=== PATIENT | female | born 1945 | race Caucasian/White ===

== ENCOUNTER 2018-01-06 12:59 | Emergency (ER) | payer MEDICARE ==
[2018-01-06] MEDS ORDERED: Aspirin 81 mg CHEW TAB* 81 MG TAB.CHEW PO ONE (13:20)
--- NOTE | 2018-01-06 13:23 | ED ---
Palpitations / Dysrhythmia - HPI Summary HPI Summary: This patient is a 72 year old F presenting to [facility] via EMS with a chief complaint of sudden rapid heart palpitations since 17:00 yesterday. Pt was driving in a car when her symptoms started, and the symptoms continued throughout the night. She could not sleep much. Patient reports lightheadedness , nausea, near-syncopal episode, and dehydration. Patient denies CP, jaw pain, chest tightness arm pain, MAK, abd pain, slurred speech, calf pain, or difficulty with memory. 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 Cates office. Pt reports that she has not felt like this before. Her normal heart rate is 120 or lower. Pt last took a stress test and an echo a long time ago with her teenage babysitter, the echo was negative. 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 Pt reports that she never gets a flu shot. Pt reports her nausea as 4/10. PMHX Insulinomas, pancreatic complications, neck tumor (removed) , Hepatitis (unspecified). No PMHx neuro problems, thyroid problems. 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 FHX [place], Afib, Cardiac arrest, colon cancer. Vital signs while in room: HR 110 bpm, BP 200/105. O2 98% Allergies to Mela Oil and Doxycycline. Time of evaluation: 14:15. Home Medications Medication Instructions Recorded Confirmed Type Diltiazem HCl Coated Beads 120 mg PO DAILY 01/06/14 04/21/14 History [Diltiazem Cd] EPINEPHrine [Epipen 2-Shon] 0.3 mg IJ ONCE PRN 01/06/14 04/21/14 History [place]-3 Fatty Acids/Fish Oil 1 cap PO DAILY 01/06/14 04/21/14 History [[place] 3] Oxybutynin Chloride [Oxybutynin 10 mg PO DAILY 01/06/14 04/21/14 History Chloride ER] Pantoprazole Sodium 20 mg PO BID 01/06/14 04/21/14 History - History of Current Complaint Chief Complaint: EDDizziness Time Seen by Provider: 01/06/18 13:15 Hx Obtained From: Patient, EMS, Other: - Dr. Rome [place], who called ahead Onset/Duration: Sudden Onset, Lasting Hours - since last pm Timing: Constant Severity Initially: Severe Severity Currently: Severe Character: Fast Aggravating: Nothing Alleviating: Nothing Associated Signs & Symptoms: Lightheadedness, Nausea - Allergy/Home Medications Allergies/Adverse Reactions: Allergies Allergy/AdvReac Type Severity Reaction Status Date / Time doxycycline Allergy Hives Verified 01/07/18 14:30 mela Allergy Hives Verified 01/07/18 14:30 PMH/Surg Hx/FS Hx/Imm Hx Previously Healthy: No Endocrine/Hematology History: Reports: Other Endocrine/Hematological Disorders - insulinomas Denies: Hx Diabetes, Hx Systemic Lupus Erythematosus Cardiovascular History: Reports: Hx Hypertension, Other Cardiovascular Problems/ Disorders - mitral valve problem Denies: Hx Congestive Heart Failure, Hx Pacemaker/ICD Respiratory History: Reports: Hx Pneumonia GI History: Reports: Hx Gastroesophageal Reflux Disease, Other GI Disorders - biliary sphincter issue, pancreatic sphincter issue History: Denies: Hx Dialysis, Hx Renal Disease Musculoskeletal History: Denies: Hx Rheumatoid Arthritis Sensory History: Reports: Hx Contacts or Glasses Denies: Hx Hearing Aid Opthamlomology History: Reports: Hx Contacts or Glasses Psychiatric History: Denies: Hx Panic Disorder - Cancer History Cancer Type, Location and Year: no Hx Chemotherapy: No Hx Radiation Therapy: No - Surgical History Surgery Procedure, Year, and Place: hysterectomy 2009; billiary and pancreatic sphycterotomy; benign tumor removed from neck Hx Anesthesia Reactions: No - Immunization History Date of Tetanus Vaccine: PT STATES UNSURE Date of Influenza Vaccine: doesn't get them Infectious Disease History: Yes Infectious Disease History: Reports: Hx Hepatitis - since resolved, needed ERCP Denies: Traveled Outside the in Last 30 Days - Family History Known Family History: Positive: Cardiac Disease, Other - afib, [place], colon [place] - Social History Occupation: Retired Lives: With Family Alcohol Use: Weekly Substance Use Type: Reports: None Smoking Status (MU): Former Smoker Type: Cigarettes Amount Used/How Often: quit 20 yrs ago Review of Systems Constitutional: Negative Positive: Other - dehydration Positive: Palpitations. Negative: Chest Pain Respiratory: Negative Positive: Nausea. Negative: Abdominal Pain Positive: no symptoms reported Negative: Other - calf pain, jaw pain, Skin: Negative Neurological: Other - near-syncope Negative: Headache, Slurred Speech Psychological: Normal All Other Systems Reviewed And Are Negative: Yes Physical Exam - Summary Physical Exam Summary: Appearance: Ill-appearing, severe pain distress, nauseous, hypertensive, tachycardic, appears younger than stated age Skin: Warm, color reflects adequate perfusion, dry Head: Normal Head/Face inspection, atraumatic Eyes: Conjunctiva clear, PERRL, EOMI, no nystagmus ENT: Normal inspection Neck: Supple, no nodes, no JVD, scar posterior neck, nontender spines Respiratory: Lungs clear, normal breath sounds, no respiratory distress Cardio: RRR, No murmur, pulses normal, brisk capillary refill Abdomen: Soft, nontender, no bruits, no masses, no guarding/rebound, no CVAT Bowel sounds: Present Musculoskeletal: Strength Intact/ROM intact, no calf tenderness, no edema. Psychological: Normal Neuro: A&O x3, CN II-XII intact, motor function 5/5, sensation intact, cerebellar normal GCS: 15 Triage Information Reviewed: Yes Vital Signs On Initial Exam: Initial Vitals Temp Pulse Resp BP Pulse Ox 98.3 F 95 16 165/95 99 01/06/18 13:03 01/06/18 13:03 01/06/18 13:03 01/06/18 13:03 01/06/18 13:03 Vital Signs Reviewed: Yes Diagnostics - Vital Signs Vital Signs Temp Pulse Resp BP Pulse Ox 01/06/18 13:03 98.3 F 95 16 165/95 99 - Laboratory Result Diagrams: 01/06/18 14:05 01/06/18 14:16 Lab Statement: Any lab studies that have been ordered have been reviewed, and results considered in the medical decision making process. - Radiology CXR Radiology Interpretation Completed By: Radiologist - NO ACTIVE CARDIOPULMONARY DISEASE. ED physician has reviewed this report - CT Brain CT Interpretation Completed By: Radiologist - NO ACUTE INTRACRANIAL PATHOLOGY. ED physician has reviewed this report - EKG 13:23 Cardiac Rate: Tachycardia - 104 bpm EKG Rhythm: Sinus Tachycardia ST Segment: Non-Specific Ectopy: None EKG Interpretation: nml AV/IV CT, nml QTc, and nml axis. EKG Comparison: No Significant Change - c/w 04/23/14 Re-Evaluation - Re-Evaluation First Eval Re-Evaluation Time: 15:34 Change: Unchanged Comment: Patient has a right frontal MAK. BP is 169/90. Labs reviewed, all are nml except lactic acid 2.1 and alkaline phosphatase 116. Pt says she has had hepatic cysts and she gets yearly ultrasounds, and they have been unchanged. Patient is still nauseous. Second Eval Re-Evaluation Time: 17:26 Change: Improved Comment: BP 135/85. Nausea is better. We discussed discharge. Course/Dx - Course Course Of Treatment: This patient is a 72 year old F presenting to [facility] with a chief complaint of sudden rapid heart palpitations since 17:00 yesterday. Pt was driving in a car when her symptoms started, and the symptoms continued throughout the night. She could not sleep much. Patient reports lightheadedness , nausea, near-syncopal episode, and dehydration. Patient denies CP, jaw pain, chest tightness arm pain, MAK, abd pain, slurred speech, calf pain, or difficulty with memory. An EKG at 13:23 shows HR 104 bpm and reveals nml AV/IV CT, nml QTc, and nml axis. CXR reveals, per radiologist, NO ACTIVE CARDIOPULMONARY DISEASE. CT brain reveals, per radiologist, NO ACUTE INTRACRANIAL PATHOLOGY. ED physician has reviewed this radiology report. Test results with no significant abnormalities except for elevated lactic acid 2.1 H and minimally elevated alkaline phosphatase. In the ED course the patient was given Aspirin 324mg po, IV fluids, and ODT and IV zofran. Patient will be discharged with increased RX for Diltiazem and Ondansetron and defnite follow up with Dr. Cote. The patient is agreeable with this plan. - Diagnoses Differential Diagnosis/HQI/PQRI: Positive: Coronary Artery Disease, Other - insulinoma, CVA, arrythmia Provider Diagnoses: Hypertensive crisis, Vomiting, Palpitations, Near syncope Discharge - Sign-Out/Discharge Documenting (check all that apply): Patient Departure - discharge - Discharge Plan Condition: Stable Disposition: HOME Prescriptions: dilTIAZem HCl [Cartia Xt] 180 mg PO BEDTIME #30 cap.er.24h Ondansetron ODT TAB* [Zofran 4 MG Odt TAB*] 4 mg PO Q6H PRN #20 tab.odt PRN Reason: Nausea Patient Education Materials: Heart Palpitations (ED), Hypertensive Crisis (ED) Referrals: Karsten Cote MD [Primary Care Provider] - 2 Days Additional Instructions: We noted blood pressures of 190/109 P 108, and 189/104 P103 while you were in the ER. Your BP came down without treatment. We did not see any arrythmias. We have decided that you will increase your Cartia XT to 180mg daily at bedtime. We have sent a prescription for this to [facility] in [place]. We have also sent an RX for zofran for nausea and vomiting. You will want to have definite follow up for your hx of insulinomas. See Dr. Cote for a BP check within the next week. We have given you copies of your labs and CT brain that were done in the ED. Dr. Pearson recommends that you get your own blood pressure cuff. Look at an Omron brand name or the Judd Rama brand name. Return to the ER if you have any new or worsening symptoms. - Billing Disposition and Condition Condition: STABLE Disposition: Home - Attestation Statements Document Initiated by Scrdele: Yes Documenting Scribe: Xavi Paris Provider For Whom Rossy is Documenting (Include Credential): Natasha Pearson MD Scribe Attestation: IXavi, scribed for Natasha Pearson MD on 01/09/18 at 1838. Scribe Documentation Reviewed: Yes Provider Attestation: The documentation as recorded by the Xavi pickens accurately reflects the service I personally performed and the decisions made by me, Natasha Pearson MD
[2018-01-06] MEDS ORDERED: Ondansetron INJ* 2 MG/ML VIAL ONE (13:38)
[2018-01-06] MEDS ORDERED: Ondansetron ODT TAB* 4 MG PO ONE (13:43)
[2018-01-06] MEDS ORDERED: Ondansetron INJ* 2 MG/ML VIAL IV ONE (13:45)
[2018-01-06] MEDS ORDERED: Ondansetron ODT TAB* 4 MG ONE (13:45)
[2018-01-06] MEDS: NS 0.9% 1000 ML* 2,000 ML IV ONE ×2 (14:24→15:33)
[2018-01-06 14:27] LABS: Urine Appearance Cloudy; Urine Blood Negative (Negative); Urine Color Yellow; Urine Ketones 1+ (Negative); Urine Protein Negative (Negative); Urine Specific Gravity 1.008 (1.010-1.030); Urine Urobilinogen Negative (Negative)
[2018-01-06 14:33] LABS: INR 0.95 (0.77-1.02)
[2018-01-06 14:34] LABS: ABS Basophils 0 10^3/ul (0-0.2); ABS Eosinophils 0.1 10^3/ul (0-0.6); ABS Lymphocytes 0.7 10^3/ul (1.0-4.8); ABS Monocytes 0.4 10^3/ul (0-0.8); ABS Nucleated RBC 0 10^3/ul; Eosinophil % 0.6 % (0-6); Hematocrit 45 % (35-47); Hemoglobin 15.9 g/dl (12.0-16.0); Lymphocyte % 7.7 % (25-47); Mean Corpuscular HGB Conc 35 g/dl (31-36); Mean Corpuscular Hemoglobin 34 pg (27-31); Mean Corpuscular Volume 96 fL (80-97); Mean Platelet Volume 7.5 um3 (7.4-10.4); Nucleated Red Blood Cells % 0; Platelet Count 236 10^3/ul (150-450); Red Blood Count 4.71 10^6/ul (4.00-5.40); Red Cell Distribution Width 13 % (10.5-15); White Blood Count 9.1 10^3/ul (3.5-10.8)
[2018-01-06 14:47] LABS: EGFR Non-African American 88.5 (>60)
--- NOTE | 2018-01-06 16:06 | RAD ---
HISTORY: right frontal MAK, HTN COMPARISONS: None TECHNIQUE: Multiple contiguous axial CT scans were obtained of the head without intravenous contrast. FINDINGS: HEMORRHAGE/INFARCT: There is no hemorrhage or acute infarct. MASSES/SHIFT: There is no mass or shift. EXTRA-AXIAL SPACES: There are no extra-axial fluid collections. SULCI AND VENTRICLES: The sulci and ventricles are normal in size and position for the patient's stated age. CEREBRUM: There are no focal parenchymal abnormalities. BRAINSTEM: There are no focal parenchymal abnormalities. CEREBELLUM: There are no focal parenchymal abnormalities. VESSELS: The vessels are grossly normal. PARANASAL SINUSES: The paranasal sinuses are clear. ORBITS: The orbits are unremarkable. BONES AND SOFT TISSUE: No bone or soft tissue abnormalities are noted. OTHER: None IMPRESSION: NO ACUTE INTRACRANIAL PATHOLOGY.
--- NOTE | 2018-01-06 16:10 | RAD ---
HISTORY: palpitations COMPARISONS: April 21, 2014 VIEWS: 1: frontal AP view of the chest at 2:30 PM FINDINGS: LINES AND TUBES: None. CARDIOMEDIASTINAL SILHOUETTE: The cardiomediastinal silhouette is normal for portable technique. PLEURA: The costophrenic angles are sharp. No pleural abnormalities are noted. LUNG PARENCHYMA: The lungs are clear. ABDOMEN: The upper abdomen is clear. There is no subphrenic gas. BONES AND SOFT TISSUES: No bone or soft tissue abnormalities are noted. IMPRESSION: NO ACTIVE CARDIOPULMONARY DISEASE.
[2018-01-06] MEDS ORDERED: Ibuprofen TAB* 600 MG PO ONE (17:29)
[2018-01-06 17:59] VITALS: BP 140/86
== END 2018-01-06 17:58 | disposition home or self-care (01) ==
LOC: ED 12:59
DX: I16.9 Hypertensive crisis, unspecified (principal); R11.10 Vomiting, unspecified; R00.2 Palpitations; R55 Syncope and collapse; Z87.891 Personal history of nicotine dependence
CPT/HCPCS: 36415; 70450; 71045; 80053; 81003; 82150; 82550; 82553; 83605; 83690; 83735; 83880; 84436; 84443; 84484; 85025; 85379; 85610; 85730; 93005; 96361; 96374; 99282; A9270-GY; J2405

== ENCOUNTER 2018-01-07 14:14 | Inpatient (IN) | payer MEDICARE ==
[2018-01-07] MEDS ORDERED: diPHENhydraMINE IV* 50 MG/ML 1 ml VIAL (BENADRYL) IV ONE (14:29)
[2018-01-07] MEDS ORDERED: Metoclopramide IV* 5 MG/ML 2 ML VIAL IV ONE (14:29)
--- NOTE | 2018-01-07 14:39 | ED ---
HPI Cardiac - HPI Summary HPI Summary: Pt is a 72 year old F presenting to the ED BIBA with extreme nausea, heart palpitations, lightheadedness, and the episode started around noon. She was here yesterday for the same thing. Her heart was beating hard and fast but was regular. The pt denies sob, leg edema, smoking, anxiety, wheezing, or coughing. The pt reports being given Zofran in the ambulance as well as aspirin, RUQ pain , two sphincterotomies, 4.8cm cysts on liver, drinking wine, changes in blood pressure, and tightness in throat. Pre-hospital EKG showed sinus tachycardia with some inferior and lateral ST oppression, which pt states is not new. - History of Current Complaint Chief Complaint: EDDysrhythmPalp Stated Complaint: CHEST PAIN Time Seen by Provider: 01/07/18 14:17 Hx Obtained From: Patient Onset/Duration: Started Days Ago, Still Present Timing: Lasting Days Initial Severity: Mild Current Severity: Mild Pain Intensity: 0 Pain Scale Used: 0-10 Numeric Character: Fast, Pounding Aggravating Factor(s): Position, Movement Alleviating Factor(s): Nothing Associated Signs and Symptoms: Positive: Lightheadedness, Nausea, Palpitations, Abdominal Pain - RUQ, Other: - throat tightness. Negative: Shortness of Breath , Cough, Wheezing - Allergy/Home Medications Allergies/Adverse Reactions: Allergies Allergy/AdvReac Type Severity Reaction Status Date / Time doxycycline Allergy Hives Verified 01/07/18 14:30 roque Allergy Hives Verified 01/07/18 14:30 PMH/Surg Hx/FS Hx/Imm Hx Previously Healthy: No Endocrine/Hematology History: Reports: Other Endocrine/Hematological Disorders - insulinomas Denies: Hx Diabetes, Hx Systemic Lupus Erythematosus Cardiovascular History: Reports: Hx Hypertension, Other Cardiovascular Problems/ Disorders - mitral valve problem Denies: Hx Congestive Heart Failure, Hx Pacemaker/ICD Respiratory History: Reports: Hx Pneumonia Denies: Other Respiratory Problems/Disorders GI History: Reports: Other GI Disorders - biliary sphincter issue, pancreatic sphincter issue History: Denies: Hx Dialysis, Hx Renal Disease Musculoskeletal History: Denies: Hx Rheumatoid Arthritis Sensory History: Reports: Hx Contacts or Glasses Denies: Hx Hearing Aid Opthamlomology History: Reports: Hx Contacts or Glasses Psychiatric History: Denies: Hx Panic Disorder - Cancer History Cancer Type, Location and Year: no Hx Chemotherapy: No Hx Radiation Therapy: No - Surgical History Surgery Procedure, Year, and Place: hysterectomy 2009; billiary and pancreatic sphycterotomy; benign tumor removed from neck Hx Anesthesia Reactions: No - Immunization History Date of Tetanus Vaccine: PT STATES UNSURE Date of Influenza Vaccine: doesn't get them Immunizations Up to Date: Yes Infectious Disease History: No Infectious Disease History: Reports: Hx Hepatitis - since resolved, needed ERCP Denies: Traveled Outside the [place] in Last 30 Days - Family History Known Family History: Positive: Cardiac Disease, Other - afib, [place], colon [place] - Social History Occupation: Retired Alcohol Use: Weekly Substance Use Type: Reports: None Hx Tobacco Use: No Smoking Status (MU): Former Smoker Type: Cigarettes Amount Used/How Often: quit 20 yrs ago Review of Systems Positive: Other - tightness in throat Positive: Palpitations Negative: Shortness Of Breath, Cough Positive: Nausea Negative: Edema Neurological: Other - lightheaded Negative: Anxious All Other Systems Reviewed And Are Negative: Yes Physical Exam - Summary Physical Exam Summary: Appearance: Well appearing, no pain distress Skin: warm, dry, reflects adequate perfusion Head/face: normal Eyes: EOMI, IGNACIO ENT: mucous membranes moist Neck: supple, non-tender Respiratory: CTA, breath sounds present Cardiovascular: RRR, pulses symmetrical Abdomen: RUQ tenderness, soft Bowel Sounds: present Musculoskeletal: normal, strength/ROM intact Neuro: normal, sensory motor intact, A&Ox3 Triage Information Reviewed: Yes Vital Signs On Initial Exam: Initial Vitals Temp Pulse Resp BP Pulse Ox 98.5 F 90 20 169/110 98 01/07/18 14:19 01/07/18 14:19 01/07/18 14:19 01/07/18 14:19 01/07/18 14:19 Vital Signs Reviewed: Yes Diagnostics - Vital Signs Vital Signs Temp Pulse Resp BP Pulse Ox 01/07/18 14:19 98.5 F 90 20 169/110 98 - Laboratory Result Diagrams: 01/07/18 14:37 01/07/18 14:37 Lab Statement: Any lab studies that have been ordered have been reviewed, and results considered in the medical decision making process. - Radiology Chest XRay Xray Interpretation: No Acute Changes - No active cardiopulmonary disease. Radiology Interpretation Completed By: Radiologist - ED physician has reviewed this report. - Ultrasound No standard instances Ultrasound Interpretation: Positive (See Comments) - THE COMMON DUCT IS MILDLY DILATED WITHOUT INTRAHEPATIC BILIARY DILATATION. THERE IS AN ECHOGENIC FILLING DEFECT OF THE DISTAL COMMON DUCT WHICH MAY REFLECT A COMMON DUCT STONE. Ultrasound Interpretation Completed By: Radiologist - ED physician has reviewed this report. - EKG 1418 Cardiac Rate: NL - 88bpm EKG Rhythm: Sinus Rhythm ST Segment: Normal Ectopy: None Disposition - Course Course Of Treatment: Pt with abrupt onset episodically of nausea and some RUQ pain associated with palpitations. GB US shows possible stone in CBD -- but pt has a hx of biliary and pancreatic duct sphincterotomies. No fever. Improved here. D/W GI who discussed with their colleague about doing ERCP here. Plan to admit and ERCP in 24-48hrs. - Differential Dx - Cardiopulmonary Differential Diagnoses - Cardiopulmonary: Acute Coronary, CAD, CHF, Chest Wall Pain, GI Disease, Lower Resp Infection - Diagnoses Provider Diagnoses: Choledocholithiasis, Nausea, Palpitations Discharge - Sign-Out/Discharge Documenting (check all that apply): Patient Departure - admit - Discharge Plan Condition: Fair Disposition: ADMITTED TO [facility] - Billing Disposition and Condition Condition: FAIR Disposition: Admitted to [facility] - Attestation Statements Document Initiated by Scribe: Yes Documenting Scribe: Chrissy Styles Provider For Whom Rossy is Documenting (Include Credential): Jasbir Molina MD. Scribe Attestation: Chrissy Chris, scribed for Jasbir Molina MD. on 01/07/18 at 2110. Scribe Documentation Reviewed: Yes Provider Attestation: The documentation as recorded by the scribeChrissy accurately reflects the service I personally performed and the decisions made by me, Jasbir Molina MD. Consult Consult: 1556 - Spoke with Chelle Arzate MD., about the pt's condition, who wants Dr. Calhoun to call. 1620 - Pt will be admitted to the hospital. 1630 - GI asked for a MCRP.
[2018-01-07 14:51] LABS: ABS Basophils 0 10^3/ul (0-0.2); ABS Eosinophils 0.1 10^3/ul (0-0.6); ABS Lymphocytes 1.1 10^3/ul (1.0-4.8); ABS Monocytes 0.4 10^3/ul (0-0.8); ABS Neutrophils 6.6 10^3/ul (1.5-7.7); ABS Nucleated RBC 0 10^3/ul; Eosinophil % 1.5 % (0-6); Hematocrit 44 % (35-47); Hemoglobin 15.2 g/dl (12.0-16.0); Lymphocyte % 13.5 % (25-47); Mean Corpuscular HGB Conc 34 g/dl (31-36); Mean Corpuscular Hemoglobin 33 pg (27-31); Mean Corpuscular Volume 96 fL (80-97); Mean Platelet Volume 7.3 um3 (7.4-10.4); Nucleated Red Blood Cells % 0; Platelet Count 227 10^3/ul (150-450); Red Blood Count 4.59 10^6/ul (4.00-5.40); Red Cell Distribution Width 13 % (10.5-15); White Blood Count 8.3 10^3/ul (3.5-10.8)
[2018-01-07 14:55] LABS: INR 1.02 (0.77-1.02)
--- NOTE | 2018-01-07 15:02 | RAD ---
HISTORY: CP COMPARISONS: January 06, 2018 VIEWS: 1: frontal AP view of the chest at 2:50 PM FINDINGS: LINES AND TUBES: None. CARDIOMEDIASTINAL SILHOUETTE: The cardiomediastinal silhouette is normal for portable technique. PLEURA: The costophrenic angles are sharp. No pleural abnormalities are noted. LUNG PARENCHYMA: The lungs are clear. ABDOMEN: The upper abdomen is clear. There is no subphrenic gas. BONES AND SOFT TISSUES: No bone or soft tissue abnormalities are noted. IMPRESSION: NO ACTIVE CARDIOPULMONARY DISEASE.
[2018-01-07 15:08] LABS: EGFR Non-African American 76.4 (>60)
--- NOTE | 2018-01-07 15:19 | RAD ---
HISTORY: RUQ pain COMPARISONS: April 15, 2016 TECHNIQUE: Multiple transverse and longitudinal ultrasound images were obtained of the right upper quadrant of the abdomen using grayscale and color Doppler imaging. FINDINGS: LIVER: There are multiple hepatic cysts, the largest measures approximately 6.6 cm in size. These are similar to the previous examination accounting for differences in technique. There is normal hepatopedal flow of the portal vein on Doppler imaging. BILIARY TREE: The common duct is mildly dilated The common duct measures 0.9 cm. There is an echogenic focus within the distal common duct. GALLBLADDER: The gallbladder is well-visualized. There is no cholelithiasis, gallbladder wall thickening, pericholecystic fluid, or sonographic Tavares sign. PANCREAS: The head of the pancreas is unremarkable. The tail of the pancreas is not well visualized secondary to overlying bowel gas. RIGHT KIDNEY: The right kidney is normal in shape, size, contour, and echogenicity. There is no hydronephrosis or nephrolithiasis. The right kidney measures 11.2 x 5.9 x 5 cm. AORTA AND IVC: The aorta and IVC are unremarkable. FLUID: There are no pleural effusions. There is no free fluid within the hepatorenal recess. OTHER FINDINGS: None. IMPRESSION: THE COMMON DUCT IS MILDLY DILATED WITHOUT INTRAHEPATIC BILIARY DILATATION. THERE IS AN ECHOGENIC FILLING DEFECT OF THE DISTAL COMMON DUCT WHICH MAY REFLECT A COMMON DUCT STONE.
[2018-01-07] MEDS ORDERED: Acetaminophen TAB* 325 MG PO PRN (17:43)
[2018-01-07] MEDS: Ondansetron INJ* 2 MG/ML VIAL IV PRN (19:33)
[2018-01-07] MEDS: Enoxaparin(*) 40 MG/0.4 ML SYR SUBCUT SCH (19:38)
[2018-01-07] MEDS: Diltiazem CD CAP* 180 MG PO SCH (21:04)
--- NOTE | 2018-01-07 22:22 | HP ---
AMENDED REPORT NOW INCLUDES DESIGNATED COSIGNER CC: Dr. Karsten Cote * [facility] MEDICINE HISTORY AND PHYSICAL: DATE OF ADMISSION: 01/07/18 PRIMARY CARE PHYSICIAN: Dr. Karsten Cote. ATTENDING PHYSICIAN: Dr. Bruce Paz * (dictation provided by Karina Almazan NP). CHIEF COMPLAINT: Episodes of near-syncope with nausea and lightheadedness and palpitations. HISTORY OF PRESENT ILLNESS: Ms. Marino is a 72-year-old female with a past medical history of insulinoma discovered in 1998, which was treated at that time in a pancreatic sphincterotomy and then a biliary sphincterotomy. The patient states that her symptoms at the time of her diagnosis of insulinoma were very severe. She reports episodes with severe diaphoresis, vomiting, incontinence of stool. These episodes would come and go sporadically and lasted for over a year before she was diagnosed with an insulinoma. She then saw Dr. Cardoza in [facility], who confirmed the diagnosis, and Dr. Girard performed a pancreatic sphincterotomy. She did well for several years after that, but again developed symptoms and needed a biliary sphincterotomy with Dr. Girard. The patient states that since 2004, she has only very rarely ever had episodes with the last one being a year ago. Recently, as of this past Monday, the patient was sitting in a car when she suddenly felt that she was going to pass out. She felt very lightheaded and nauseous. This only lasted a moment or two, but thereafter she did feel quite weak. She went to bed and the following morning when she woke up, she again had another episode where she almost blacked out and again had severe nausea. She went to see her primary care physician, Dr. Karsten Cote, who performed an EKG and sent her to the emergency room for evaluation. Here, her workup was negative except for an elevated blood pressure, for which she had increase of her home diltiazem from 120 mg to 180 mg daily. Her BP improved in the ED and she felt somewhat better and therefore returned home. Again, this morning, she had episode of nausea, lightheadedness, and feeling like she was going to blackout, so she called the EMS to be brought back to the hospital. She states that these symptoms bear some semblance to her previous symptoms that were ascribed to her insulinoma, but they are less severe. She also describes having some palpitations that have lasted about the past week or so. She notices them more at night when she is still and quiet. The patient denies any other complaints. She has had no chest pain, no shortness of breath. She has had no abdominal pain, although she did report a little bit of abdominal fullness in the right upper quadrant, but states this has been going on for about a year. She denies fever or chills. In the emergency room, Ms. Marino had labs that were unremarkable and almost essentially normal. Her vital signs showed her blood pressure was initially elevated at 169/110, but while being in the emergency room without any medication, had fallen to 122/72. She had a chest x-ray, which showed no acute process and EKG, which showed no evidence of ischemia, but a gallbladder ultrasound showed concern for possible common bile duct stone. PAST MEDICAL HISTORY: 1. Hypertension. 2. Insulinoma, status post biliary sphincterotomy and pancreatic sphincterotomy. 3. Hysterectomy with bilateral salpingo-oophorectomy. MEDICATIONS: Outpatient are: 1. Diltiazem CD 180 mg p.o. daily. 2. Zofran p.r.n. ALLERGIES: DOXYCYCLINE and MICHAEL. FAMILY HISTORY: Her mother had colon cancer at age 72 and at age 82. Her half-brother on the maternal side had colon cancer at age 61. SOCIAL HISTORY: No report of current alcohol, tobacco, or drug use. The patient states that her daughter, Jailyn, would be the healthcare proxy. REVIEW OF SYSTEMS: A 14-point review of systems was completed with Ms. Marino and all those not mentioned above were negative. PHYSICAL EXAMINATION GENERAL: Ms. Marino is lying in the bed. She is in no acute distress. VITAL SIGNS: Temperature 98.5; pulse rate 90; respiratory rate 20; O2 saturation 98% on room air; blood pressure 169/110; at the time of my examination, it was 122/72. LUNGS: Clear to auscultation bilaterally with no accessory muscle use and good aeration. HEART: S1, S2. No murmur, rub, or gallop, and regular. ABDOMEN: Has very mild tenderness to palpation in the left lower quadrant, it was otherwise completely benign with bowel sounds positive x4. EXTREMITIES: No cyanosis or edema. NEUROLOGIC: She is alert. She is oriented x3. She moves all extremities equally. There is no facial asymmetry or focal weakness. Extraocular movements are intact. SKIN: Intact. DIAGNOSTIC STUDIES/LAB DATA: WBC 8.3, hemoglobin 15.2, hematocrit 44, platelet count 227. INR 1.02. Sodium 140, potassium 3.8, chloride 108, bicarb 22, BUN 11, creatinine 0.75, glucose 90, lactic acid 1.7. Lipase 35, AST 20, ALT 17, total bilirubin 0.50, and alk phos 94. The gallbladder ultrasound is read as follows: "The common duct is mildly dilated without intrahepatic biliary dilatation. There is an echogenic filling defect at the distal common duct, which may reflect a common duct stone." Chest x-ray shows no acute process. EKG shows sinus rhythm with a heart rate in the 80 and no evidence of ischemia. ASSESSMENT AND PLAN: Ms. Marino is a 72-year-old female with a past medical history of insulinoma, which was treated in 2000 with biliary sphincterotomy and 2004 with pancreatic sphincterotomy, who presents today to the hospital with concern for palpitations, presyncope, nausea, lightheadedness. In the ED, she has been found to have an abnormal gallbladder ultrasound and possible common bile duct stone. Our plans are for observation in the hospital for the followin. Presyncopal episodes associated with nausea. The patient's symptoms of feeling like she is going to pass out certainly sound vasovagal in nature. She does describe some palpitations and will be monitored on telemetry. Though she has this abnormality noted on the gallbladder ultrasound, I am suspicious that this might be just an artifact related to her history of sphincterotomy. The case has been discussed with Dr. Arzate from Gastroenterology and she and the gastroenterology team have recommended an MRCP. Dr. Arzate states that Dr. Calhoun will see the patient tomorrow. It is also possible that her symptoms are related to her reported insulinoma as she did not have resection of that at the time of her prior treatment, as according to her this was not the standard care at that time. I note a previous MRI abdomen from 2017 that did not show a pancreatic mass. Plan for MRI abdomen to evaluate for pancreatic mass. She would likely benefit greatly from an endocrine consult, perhaps with Dr. Gerardo Childs tomorrow when he is available. We will also request records from her treating physicians in [facility] to better understand her previous diagnostic workup and treatment. 2. Hypertension. The patient's blood pressure is appropriate at this time. She has recently had an increase in her diltiazem. We will be monitoring her blood pressure closely and adjusting her medications as needed. 3. DVT prophylaxis with Lovenox. 4. Code status is full code. TIME SPENT: Approximately 60 minutes were spent on the admission of this patient, more than half the time spent with the patient at the bedside reviewing the events leading up to this hospitalization, performing the physical examination, and reviewing the plan of care. KARINA ALMAZAN NP [id number]/[facility] #: [id number] SHANTELLE
[2018-01-08] MEDS ORDERED: Gadoteridol* (CONTRAST) 279.3 MG/ML 10 ML IV ONE (11:42)
[2018-01-08] MEDS: Ondansetron INJ* 2 MG/ML VIAL IV PRN (12:18)
--- NOTE | 2018-01-08 13:06 | PN ---
Subjective Date of Service: 01/08/18 Interval History: patient reports she feels a little better today but continues to have nausea and "mild" RUQ pain. She reports the nausea started 3 days with dizziness and lightheadedness reporting a presyncopal feeling. No vomiting. No fevers or chills. No body aches. Recently got over a "flu like virus" a few weeks ago. Reports current MAK and thinks its secondary to not having caffeine this am. Reports that the RUQ pain was worse last night after ultrasound but does not report any pain with palpation on practitioner exam. Reports RUQ pain for 1 year on and off reporting "no one was concerned about this pain". She reports it to feel more like a "feeling of fullness and discomfort". Denies abdominal bloating belching or increased flatulence. She reports normal BMs. Reports she is healthy at her baseline. She reports she saw her GI doctor Dr. Moura & [facility] two years ago who reported that she was doing well (she has followed with this office since 2000 for her insulinoma). As well she followed with Dr. Jack MCKINNON MD in [place]. Objective Active Medications: Acetaminophen (Tylenol Tab*) 650 mg PO Q6H PRN PRN Reason: PAIN Diltiazem HCl (Cardizem Cd Cap*) 180 mg PO BEDTIME ADRIANA Last Admin: 01/07/18 21:04 Dose: 180 mg Enoxaparin Sodium (Lovenox(*)) 40 mg SUBCUT Q24H ADRIANA Last Admin: 01/07/18 19:38 Dose: Not Given Ondansetron HCl (Zofran Inj*) 4 mg IV Q6H PRN PRN Reason: NAUSEA Last Admin: 01/08/18 12:18 Dose: 4 mg Ondansetron HCl (Zofran Odt Tab*) 4 mg PO Q6H PRN PRN Reason: NAUSEA Vital Signs - 8 hr 01/08/18 01/08/18 07:35 11:49 Temperature 98.3 F 98.3 F Pulse Rate 63 71 Respiratory 16 16 Rate Blood Pressure 112/65 131/73 (mmHg) O2 Sat by Pulse 97 98 Oximetry Oxygen Devices in Use Now: None Appearance: 72 yo female well developed A+Ox3 in NAD Eyes: No Scleral Icterus, PERRLA Ears/Nose/Mouth/Throat: NL Teeth, Lips, Gums, Mucous Membranes Moist Neck: NL Appearance and Movements; NL JVP Respiratory: Symmetrical Chest Expansion and Respiratory Effort, Clear to Auscultation Cardiovascular: NL Sounds; No Murmurs; No JVD, RRR, No Edema Abdominal: NL Sounds; No Tenderness; No Distention Extremities: No Edema, No Clubbing, Cyanosis Skin: No Rash or Ulcers, No Nodules or Sclerosis Neurological: Alert and Oriented x 3, NL Sensation, NL Gait, NL Muscle Strength and Tone Lines/Tubes/Other Access: Clean, Dry and Intact Peripheral IV Nutrition: Taking PO's Result Diagrams: 01/07/18 14:37 01/07/18 14:37 Assess/Plan/Problems-Billing Assessment: 72 yo female with a PMH of 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 - Patient Problems (1) Pre-syncope Comment: - resolved. unclear etiology. Obtain orthostatic vs. - no arryhthmias noted on tele. (2) Nausea Comment: - with RUQ discomfort - unclear etiology. Possible gall stones? - MRCP - suggestion of small gallstones with moderately distended gallbaldder w/ out additional findings. ngetaive for intra or extrahepatic biliary dilatation. No indication of ductal stone. Approx 2mm diameter pancreatic duct w/o signifiant change. No focal pancreatic lesion or prancreatic or peripancreatic inglammatory changes. benign hepatic cysts - GI consult pending. NPO after midnight for possible endoscopy tomorrow. - Zofran prn (3) Insulinoma Comment: - s/p biliary (2000) and pancreatic (2004) sph[facility]otomy [facility] - last f/u 2 years ago. Not a common procedure. - No noted hypoglycemia - Refer to endocrine as outpt. As outpt (as long as she continues to feel better ) she could have an insulin, C Peptide and Somatostatin levels drawn outpatient. (4) HTN (hypertension) Comment: - continue cardizem (5) Full code status (6) DVT prophylaxis Comment: lovenox Status and Disposition: OBV. Possible upper endoscopy tomorrow, GI consult pending. Most likely DC to home tomorrow
--- NOTE | 2018-01-08 13:13 | RAD ---
Indication: Abdominal pain. Question pancreatic mass. Biliary sphincterotomy in 1999. Pancreatic sphincterotomy in 2005. Comparison: January 07, 2018 ultrasound with note of potential distal common bile duct stone. May 20, 2016 MRI. April 29, 2014 CT. Technique: Mobile Iron [place] 1.5 Margo [id number] with GEM suite. MRI liver/abdomen without and with contrast. 10 mL ProHance contrast administered IV. Multiphasic angiographic phase postcontrast series obtained. MRCP performed. Report: Suggestion of small gallstones at the moderately distended gallbladder without additional finding of the gallbladder. Negative for intra or extrahepatic biliary dilatation. No filling defects are identified within the common bile duct to indicate presence of a ductal stone. Multiple sharply circumscribed T2 hyperintense nonenhancing hepatic lesions are visualized without suspicious change consistent with benign cysts. Dominant cyst is at the dome of the LEFT hepatic lobe measuring up to 5.6 x 5.0 cm without significant change compared with the 2017 MRI. No suspicious focal liver lesions evident. Normal morphology pancreas. Approximate 2 mm diameter pancreatic duct without significant change. No focal pancreatic lesion or pancreatic or peripancreatic inflammatory change evident. Unremarkable spleen. No abnormality of the visualized alimentary tract with motion artifact limiting assessment. Negative for ascites. Normal adrenal glands and unremarkable morphology kidneys with symmetric contrast excretion. A few tiny renal cortical cysts are noted. Negative for lymphadenopathy within the [id number]. Negative for pleural or pericardial effusions. No suspicious osseous lesions evident within the [id number]. IMPRESSION: #. Suggestion of small gallstones at the moderately distended gallbladder without additional finding of the gallbladder. #. Negative for intra or extrahepatic biliary dilatation. No filling defects are identified within the common bile duct to indicate presence of a ductal stone. #. Approximate 2 mm diameter pancreatic duct without significant change. No focal pancreatic lesion or pancreatic or peripancreatic inflammatory change evident. #. Unchanged benign morphology hepatic cysts.
[2018-01-08] MEDS: Ibuprofen TAB* 400 MG PO PRN ×2 (14:50→21:13)
[2018-01-08] MEDS ORDERED: NS 0.9% 1000 ML* 1,000 ML IV SCH (16:30)
[2018-01-08] MEDS: Enoxaparin(*) 40 MG/0.4 ML SYR SUBCUT SCH (17:03)
[2018-01-08] MEDS: Diltiazem CD CAP* 180 MG PO SCH (21:13)
--- NOTE | 2018-01-09 04:50 | CONS ---
GASTROENTEROLOGY CONSULT: DATE: 01/08 REFERRING PHYSICIAN: Bruce Paz MD and Petra Gallagher NP REASON FOR CONSULTATION: Bile duct filling defect on ultrasound during an emergency room evaluation for dizziness with nausea and discomfort in the right upper quadrant. 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 had been; however, feeling pretty well in recent months. She recalls being seen at her primary office couple of months ago for cold or something minor, though is pretty sure nothing significant had been going on. Suddenly while a passenger in a car midday on Monday01/05/18, she felt dizzy and almost blacked out. She did not feel well that evening. The next morning, she was intensely nauseated while making breakfast and felt lightheaded and requested to see her primary physician saying that she was concerned that she was having a heart attack. An EKG was done and she was sent to the emergency room. Her blood pressure was up which concerned her greatly. There was no specific treatment and she was given low-dose aspirin and sent home. Yesterday the next morning, she felt horrible again and called the ambulance. She said there was overwhelming nausea. Once again in the emergency room, her blood pressure was up. She was given Lopressor and admitted. She is on telemetry with no arrhythmia. Her beta-natriuretic peptide was 42 and LFTs normal. Right upper quadrant ultrasound showed some cysts in the liver and possibility of a common bile duct filling defect distally was raised. She was admitted to telemetry for observation and following of liver function tests and consideration for ERCP. Again, she states that over the summer, she was feeling generally well. She was not really having any abdominal problems. Her most recent emergency room visit she says was 3 years ago 5 or 6 days after undergoing upper endoscopy and colonoscopy. She had a temperature of 104 and was admitted and the diagnosis was never really clear. She has had many upper endoscopies and colonoscopies over the last 20 years. The upper endoscopies have generally been nondiagnostic and the last one by Dr. Santiago April 2014 refers to longstanding reflux symptoms and bloating. The upper endoscopy was normal. There was no mention made in Dr Garcia's notes of any complex pancreatic problems or an endocrine neoplasm which was mentioned in the current history and physical.. PAST MEDICAL HISTORY: 1. Hypertension. 2. Hysterectomy with bilateral oophorectomy. 3. History of pancreatic or biliary disease - she was referred to Dr Diego Girard in [facility] about 20 years ago and ultimately underwent an ERCP and then a second one a few years later. This started out in 1996 or 1997 when she was complaining of right upper quadrant distress and chest pain. She recalls severe debilitating paroxysmal attacks that just flattened her. She was quite definitive today in describing these intermittent attacks as being incapacitating. The notes from Dr Lozano referred to a more chronic lingering component of distress (and also vasovagal episodes) in his report of a normal upper endoscopy in April 1997. He ultimately referred her to Dr. Seng Graves for surgical opinion and consideration of cholecystectomy. The patient says that Dr. Graves sent an insulin and somatostatin level, which were abnormal (in the old database). The patient then self arranged a consult with an apiculture teacher in [facility], Dr. Sohail Boswell. Dr. Boswell saw her once in consultation and then referred her to Dr. Diego Girard. She never had any further appointments with the apiculture teacher. Dr. Girard ultimately did an ERCP and the patient recalls that a sphincterotomy was done. She did not have any further followup as an outpatient that she can recall. A second ERCP was done 5 years later and reportedly involved a different sphincterotomy. None of those reports are available, but have been requested. She denies ever having any further outpatient followups down in [facility] at least not in the last [address] Carter Santiago in his notes in the last 10 years, as recorded in the hospital, did not refer to any pancreatic problem. In February 2009, colonoscopy report refers to her as being asymptomatic. 4. History of Lyme disease - she says few years back, initially not diagnosed. MEDICATIONS: At home: Diltiazem. Zofran. ALLERGIES: DOXYCYCLINE and MICHAEL. FAMILY HISTORY: Her mother had colon cancer at age 72 and 10 years later. Her maternal half-brother also had colon cancer. SOCIAL HISTORY: She was an emergency room nurse here for many years. She has 4 children. A sister is an emergency room nurse in [facility]. She has a brother, Sunny, who is a family doctor in [place], [place] and also works in emergency rooms. REVIEW OF SYSTEMS: No history of seizure, true syncope, VA, arrhythmia, pulmonary disease, Crohn's disease, ulcerative colitis, colon polyps, psoriasis or renal disease. LABORATORY DATA: The lab studies in the hospital record do include alpha-1 antitrypsin that was normal at 138 and alpha-fetoprotein in February 2013 at 3.6. Thyroid functions 2 days ago were normal. TSH 1.10. Her LFTs have been uniformly normal. There was a minimal elevation in alkaline phosphatase 2 days ago at 115. Radiology review - hepatic cysts have been stable across multiple ultrasounds. MRCP today raised a question of small gallbladder stones but these have not been seen on any ultrasound. The common duct on MRCP was clear. IMPRESSION: This 72-year-old woman presented with predominantly circulatory complaints or constitutional complaints raising a question of syncope or cardiovascular instability. Blood pressures are actually up on a couple of listings. Since admission, she has not had any arrhythmia or alternation in consciousness. In the course of this somewhat confusing set of symptoms over 2 or 3 days, she made reference to complaints she has had in the past in the right upper quadrant or upper abdomen in general. They have seemed to be functional in nature related to nonerosive reflux at least as judged by Dr Santiago in the past. Before that, Dr. Lozano had observed or recorded the same symptoms and had not expected them to respond to a PPI. Indeed, she has not been on one of these in recent years and that would tend to suggest that acid suppression has not been helpful. Her conversation also made reference to a complex pancreatic condition evaluated 20 years ago in [facility] and per her history treated with sphincterotomy at one time the biliary system and then the pancreatic system. No open surgery was ever done or stents placed. This would be quite unusual and indeed incompatible with there having been a neuroendocrine tumor diagnosed. My sense is that a neuroendocrine tumor was in the differential diagnosis for her paroxysmol attacks and was difficult to disapprove but the lack of any followup with an apiculture teacher might suggest that Dr. Girard felt the ERCP treatment had resolved or stabilized her condition. At any rate, those records are awaited with interest. To clarify the state of her potential functional dyspepsia and her chief GI complaint at the moment (RUQ distress) which is nausea, upper endoscopy is suggested. [id number]/[facility] #: [id number] [facility]
--- NOTE | 2018-01-09 09:17 | PN ---
Subjective Date of Service: 01/09/18 Interval History: Patient reports mild lightheadedness and mild nausea but improved from yesterday. She feels "Dehydrated and dry". No RUQ discomfort/pain. She is refusing upper endoscopy stating she does not feel that this has anything to do with her problem. She reports some palpitations overnight and this morning. No CP. No SOB. Denies any further "spells". Reports mild MAK. Denies cough, rhinnorhea or URI symptoms. No body aches. Objective Active Medications: Acetaminophen (Tylenol Tab*) 650 mg PO Q6H PRN PRN Reason: PAIN Diltiazem HCl (Cardizem Cd Cap*) 180 mg PO BEDTIME [facility] Last Admin: 01/08/18 21:13 Dose: 180 mg Enoxaparin Sodium (Lovenox(*)) 40 mg SUBCUT Q24H ADRIANA Last Admin: 01/08/18 17:03 Dose: Not Given Ibuprofen (Motrin Tab*) 400 mg PO Q6H PRN PRN Reason: PAIN Last Admin: 01/08/18 21:13 Dose: 400 mg Ondansetron HCl (Zofran Odt Tab*) 4 mg PO Q6H PRN PRN Reason: NAUSEA Vital Signs - 8 hr 01/09/18 01/09/18 03:15 08:06 Temperature 97.7 F 98.0 F Pulse Rate 60 65 Respiratory 12 16 Rate Blood Pressure 96/52 113/60 (mmHg) O2 Sat by Pulse 96 95 Oximetry Oxygen Devices in Use Now: None Appearance: A+Ox3 in NAD, well developed Eyes: No Scleral Icterus, PERRLA Ears/Nose/Mouth/Throat: NL Teeth, Lips, Gums, Mucous Membranes Moist Neck: NL Appearance and Movements; NL JVP Respiratory: Symmetrical Chest Expansion and Respiratory Effort, Clear to Auscultation Cardiovascular: NL Sounds; No Murmurs; No JVD, RRR, No Edema Abdominal: NL Sounds; No Tenderness; No Distention Lymphatic: No Cervical Adenopathy Extremities: No Edema, No Clubbing, Cyanosis Skin: No Rash or Ulcers, No Nodules or Sclerosis Neurological: Alert and Oriented x 3, NL Sensation, NL Muscle Strength and Tone Lines/Tubes/Other Access: Clean, Dry and Intact Peripheral IV Nutrition: Taking PO's Result Diagrams: 01/07/18 14:37 01/07/18 14:37 Assess/Plan/Problems-Billing Assessment: 72 yo female with a PMH of 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 - Patient Problems (1) Pre-syncope Comment: - resolved. unclear etiology. Orthostatic vs negative. Continues to have some mild lightheadedness with position change - no arryhthmias noted on tele. EKG SR, no changes, trops negative - The concerning symptoms she reports of lightheadedness, feeling of impending doom, palpitations, nausea .... Discussed with attending Dr. Vicente who thought it was indicated to check for possible pheochromocytoma.. Will send 24 hour urine 5HIAA and metaneprines, as well as random serum plasma metanephrines. It is possible she has a viral syndrome??? - give 1 liter NS (2) Nausea Comment: - with RUQ discomfort - now resolved - unclear etiology - possible gallstones? - MRCP - suggestion of small gallstones with moderately distended gallbaldder w/ out additional findings. ngetaive for intra or extrahepatic biliary dilatation. No indication of ductal stone. Approx 2mm diameter pancreatic duct w/o signifiant change. No focal pancreatic lesion or prancreatic or peripancreatic inglammatory changes. benign hepatic cysts - Appreciate GI consult - endoscopy recommended in which the patient is refusing. - Shubham oliva (3) Insulinoma Comment: - s/p biliary (2000) and pancreatic (2004) sphincterotomy by Dr. Moura in [facility] - last f/u 2 years ago. Not a common procedure. - No noted hypoglycemia - Refer to endocrine as outpt. As outpt (as long as she continues to feel better ) she could have an insulin, C Peptide and Somatostatin levels drawn outpatient. - awaiting reocrds from GI in [facility] - have called 2x (4) HTN (hypertension) Comment: - controlled - continue cardizem (5) Full code status (6) DVT prophylaxis Comment: lovenox Status and Disposition: switch to inpatient - Most likely DC to home tomorrow
[2018-01-09] MEDS: Ondansetron ODT TAB* 4 MG PO PRN (15:59)
[2018-01-09] MEDS: NS 0.9% 1000 ML* 1,000 ML IV SCH (15:59)
[2018-01-09] MEDS: Enoxaparin(*) 40 MG/0.4 ML SYR SUBCUT SCH (16:43)
[2018-01-09] MEDS: Diltiazem CD CAP* 180 MG PO SCH (19:37)
[2018-01-10] MEDS: NS 0.9% 1000 ML* 1,000 ML IV SCH
[2018-01-10 05:21] LABS: ABS Basophils 0 10^3/ul (0-0.2); ABS Eosinophils 0.2 10^3/ul (0-0.6); ABS Lymphocytes 1.2 10^3/ul (1.0-4.8); ABS Monocytes 0.5 10^3/ul (0-0.8); ABS Neutrophils 4.2 10^3/ul (1.5-7.7); ABS Nucleated RBC 0 10^3/ul; Eosinophil % 3.3 % (0-6); Hematocrit 38 % (35-47); Lymphocyte % 20.3 % (25-47); Mean Corpuscular HGB Conc 35 g/dl (31-36); Mean Corpuscular Hemoglobin 33 pg (27-31); Mean Corpuscular Volume 96 fL (80-97); Mean Platelet Volume 7.3 um3 (7.4-10.4); Nucleated Red Blood Cells % 0.2; Platelet Count 173 10^3/ul (150-450); Red Blood Count 3.92 10^6/ul (4.00-5.40); Red Cell Distribution Width 13 % (10.5-15); White Blood Count 6.1 10^3/ul (3.5-10.8)
[2018-01-10] MEDS ORDERED: Magnesium Sulfate 2 GM IV* 2 GM/50 ML BAG IVPB ONE (08:36)
[2018-01-10] MEDS ORDERED: Potassium Chlor TAB* 20 MEQ TAB.ER PO ONE (08:39)
--- NOTE | 2018-01-10 08:57 | DCNOTE ---
Subjective Date of Service: 01/10/18 Interval History: Patient was feeling well this morning. She was feeling ready to go home stating she was sitting on the bed listing to the news when she had an overwhelming sensation of nausea, then felt palpitations and lightheadedness. VS showed: HR 130, BP 180/70 which resolved within a few minutes. She denies feeling SOB/CP. No vomiting. Per nursing staff just prior to episode she c/o of pain at IV site from magnesium infusion. On my evaluation (5 minutes after episode) the patient reported she felt better with some residual nausea. She feels well enough to go home. She ambulated around unit w/o any symptoms. HR NSR rate 70's. She denies any dizziness/ lightheadedness. She denied any pain at time or episode. Discussed with attending physician Dr. Georges who agrees with plan of care to DC home and f/u with pcp and endocrine as outpt Objective Active Medications: Acetaminophen (Tylenol Tab*) 650 mg PO Q6H PRN PRN Reason: PAIN Diltiazem HCl (Cardizem Cd Cap*) 180 mg PO BEDTIME ADRIANA Last Admin: 01/09/18 19:37 Dose: 180 mg Enoxaparin Sodium (Lovenox(*)) 40 mg SUBCUT Q24H ADRIANA Last Admin: 01/09/18 16:43 Dose: Not Given Sodium Chloride (Ns 0.9% 1000 Ml*) 1,000 mls @ 125 mls/hr IV PER RATE ADRIANA Stop: 01/10/18 23:59 Last Admin: 01/10/18 00:00 Dose: 125 mls/hr Magnesium Sulfate (Magnesium Sulfate 2 Gm Iv*) 2 gm in 50 mls @ 50 mls/hr IVPB ONCE ONE Stop: 01/10/18 09:35 Last Admin: 01/10/18 08:52 Dose: 50 mls/hr Ibuprofen (Motrin Tab*) 400 mg PO Q6H PRN PRN Reason: PAIN Last Admin: 01/08/18 21:13 Dose: 400 mg Ondansetron HCl (Zofran Odt Tab*) 4 mg PO Q6H PRN PRN Reason: NAUSEA Last Admin: 01/09/18 15:59 Dose: 4 mg Vital Signs - 8 hr 01/10/18 01/10/18 01/10/18 03:41 07:13 08:00 Temperature 99.2 F 98.2 F Pulse Rate 63 64 Respiratory 14 16 16 Rate Blood Pressure 109/61 109/61 (mmHg) O2 Sat by Pulse 97 95 Oximetry Oxygen Devices in Use Now: None Appearance: well developed 72 yo female A+O x3 in NAD Eyes: No Scleral Icterus, PERRLA Ears/Nose/Mouth/Throat: NL Teeth, Lips, Gums, Mucous Membranes Moist Neck: NL Appearance and Movements; NL JVP Respiratory: Symmetrical Chest Expansion and Respiratory Effort, Clear to Auscultation Cardiovascular: NL Sounds; No Murmurs; No JVD, RRR, No Edema Abdominal: NL Sounds; No Tenderness; No Distention Extremities: No Edema, No Clubbing, Cyanosis Skin: No Rash or Ulcers, No Nodules or Sclerosis Neurological: Alert and Oriented x 3, NL Sensation, NL Muscle Strength and Tone Lines/Tubes/Other Access: Clean, Dry and Intact Peripheral IV Nutrition: Taking PO's Result Diagrams: 01/10/18 04:58 01/10/18 04:58 Assess/Plan/Problems-Billing Assessment: 72 yo female with a PMH of 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 - Patient Problems (1) Pre-syncope Comment: - resolved. unclear etiology. Orthostatic vs negative. - no arryhthmias noted on tele. EKG SR, no changes, trops negative - The concerning symptoms she reports of lightheadedness, feeling of impending doom, palpitations, nausea .... Discussed with attending Dr. Vicente who thought it was indicated to check for possible pheochromocytoma.. Will send 24 hour urine 5HIAA and metaneprines, as well as random serum plasma metanephrines. Urine will need to be f/u as outpt. - (2) Nausea Comment: - No RUQ discomfort. Intermittent nausea. - unclear etiology - possible gallstones? Possible viral illness? - MRCP - suggestion of small gallstones with moderately distended gallbaldder w/ out additional findings. ngetaive for intra or extrahepatic biliary dilatation. No indication of ductal stone. Approx 2mm diameter pancreatic duct w/o signifiant change. No focal pancreatic lesion or prancreatic or peripancreatic inglammatory changes. benign hepatic cysts - Appreciate GI consult - endoscopy recommended in which the patient is refusing. - Shubham oliva (3) Palpitation Comment: - one epsiode of sinus tachycardia today when she experienced nausea... and possible pain from IV site. She has been in a NRS with some noted PVCs. No EKG changes from prior. Trops flat. (4) Insulinoma Comment: - Strange hx of supposedly dx of insulinoma. - s/p biliary (2000) and pancreatic (2004) sphincterotomy by Dr. Moura in [facility] - [facility] she was [facility]. Not a common procedure. - No noted hypoglycemia - patient fasted >12 hours w/o any episodes. Pt reports she has never had hx of hypoglycemia. - Refer to endocrine as outpt. - awaiting records from GI in [facility] - have called 3x (5) HTN (hypertension) Comment: - controlled - continue cardizem (6) Full code status (7) DVT prophylaxis Comment: lovenox Status and Disposition: inpatient - plan for DC home today
[2018-01-10] MEDS: Ondansetron ODT TAB* 4 MG PO PRN (10:15)
[2018-01-10 12:06] VITALS: BP 128/59
--- NOTE | 2018-01-11 10:19 | DS ---
AMENDED REPORT NOW INCLUDES DESIGNATED COSIGNER DISCHARGE SUMMARY: DATE OF ADMISSION: 01/07/18 DATE OF DISCHARGE: 01/10/18 PROVIDER: Kristine Umanzor NP ATTENDING PHYSICIAN: Dr. Georges * (report dictated by Kristine Umanzor NP). PRIMARY CARE PROVIDER: [facility]. The patient is to follow up with Josefa Almazan NP. REFERRING TO: Dr. Gerardo Childs. DISCHARGE DIAGNOSES: 1. Presyncope, nausea, palpitations, unclear etiology. 2. Workup for pheochromocytoma, results pending. 3. Hypertension. SECONDARY DIAGNOSIS: History of insulinoma, status post biliary sphincterotomy in 2000 and pancreatic sphincterotomy in 2004 by family living educator, Dr. Girard in [facility]. HISTORY OF PRESENT ILLNESS AND HOSPITAL COURSE: Please see history and physical by Karina Almazan NP for full admission details; but in summary, this is a 72-year-old female with a past medical history of hypertension, insulinoma discovered in 1998, in which she was treated at that time with pancreatic and biliary sphincterotomy by family living educator, Dr. Girard, in [facility], who presented to the emergency department with report of near syncopal episode with nausea, lightheadedness, and palpitations. The patient reports that 3 days prior to coming to the emergency department, she was feeling in her normal state of health when she was driving in the car as a passenger and she became lightheaded , nauseous with palpitations reporting she had a feeling that she was going to . She reports that she was heading to a restaurant for dinner and she was able to sit through the dinner, but states she did not feel well, went home, went to bed, and when she woke up in the morning, she was able to do some house chores, but went to her primary care provider's office and when she saw Dr. Cote, she continued to report she did not feel well and she then decided to come to the emergency department for further evaluation. In the emergency department on 01/06/18, her chief complaint was sudden rapid heart palpitations since the previous day. She was evaluated in the emergency department in which her blood pressure on initial arrival was 190/109, which after being evaluated, her blood pressure resumed to normal and she was discharged home. During that ER visit , she was noted to have EKG showing sinus tachycardia with a rate of [address] changes. No significant change from her prior EKG. She did report some nausea, which did improve over her evaluation in the emergency department. Please note during that ER visit, her blood pressure came down without any treatment. She was sent home with an increase in her on Cardizem to 180 mg p.o. at bedtime. The patient reports that she went home and was feeling well. The next day, she reports that she was at home and had an acute onset of extreme nausea, heart palpitations, and lightheadedness in which she became frightened and called the ambulance and was brought to the emergency department for further evaluation. A pre-hospital EKG showed sinus tachycardia with some inferior and lateral ST depression, which is not new. On arrival to the emergency department, her EKG showed a heart rate of 88 in normal sinus rhythm with no EKG changes. She again reported nausea and lightheadedness. She underwent a gallbladder ultrasound in the emergency department and was found to have an impression showing "the common duct is mildly dilated without intrahepatic biliary dilatation. There is an echogenic filling defect of the distal common duct, which may reflect a common duct stone." Hospital Medicine was called to evaluate the patient and she was admitted to the hospitalist service to the telemetry unit with plan for an MRCP, which was performed the next day. MRCP, abdomen MRI with and without contrast showed impression: 1. "Suggestion of small gallstones with the moderately distended gallbladder without additional findings of the gallbladder. 2. Negative for intra or extra hepatic biliary dilatation. No filling defects are identified within the common bile duct to indicate presence of a ductal stone. 3. Approximate 2-mm diameter pancreatic duct without significant change. No focal pancreatic lesion or pancreatic or angel-pancreatic inflammatory change evident. 4. Unchanged benign morphology hepatic cyst." The patient was seen in consultation by family living educator, Dr. Calhoun, who did not believe the patient had a bile duct stone obstruction, but felt the patient could benefit from an upper endoscopy. The patient refused this procedure. The patient was monitored on telemetry without any arrythmias noted, she has had some occasional noted PVCs. In regards to the patient's past medical history, which is quite confusing as she reports that she was diagnosed with insulinoma that she underwent the biliary and pancreatic sphincterotomy by Dr. Diego Girard in [facility], is reporting that she has been stable since. She reports prior to this sphincterotomy, she would have "attacks" of violent episodes of nausea, diarrhea , in which she reports essentially she was then diagnosed with elevated somatostatin level and diagnosed with insulinoma. She reports she saw an dry cleaning checker once many years ago, but did not follow up. She reports since that time, she has felt well without any further "attacks." The patient was followed by Dr. Lozano in which Dr. Calhoun reports he reviewed the notes from Dr. Lozano in which he referred to more chronic lingering component of distress and vasovagal episode and the patient was referred to [facility] at that time in which she diagnosed the patient with insulinoma. Please see Dr. Calhoun's consultation note for further details. The patient does report she had a 6-week viral illness resolving a few weeks ago , but has continued to feel "under the weather." Her symptoms that she presents with now are unclear etiology of what is the driving factor. I discussed the case with attending physician, Dr. Tami Muller, who did recommend assessing for pheochromocytoma in which the patient did have a metanephrine plasma sent as well as 24-hour 5-HIAA and metanephrine fractionated 24-hour urine performed over the past 24 hours. Most likely, the patient does not have a pheochromocytoma, but with her obscure and concerning acute onset of symptoms including palpitations and a feeling of impending doom, it is worth the investigation. In regards to her insulinoma, this history is unclear and confusing as well. She does report she followed up 2 years ago with a family living educator in [facility], who reports that she was doing well. We have not been able to obtain those records in the gastroenterology office and have tried several times to call the office for records to be faxed over. I do think that she could benefit from evaluation by dry cleaning checker, Dr. Gerardo Childs, and we will refer the patient for further evaluation and workup. It is possible this is driven by a viral syndrome ? as well the patient have a theory today that when she eats within the hour, it seems like she has this "attack" and maybe it has to do with her lack of pancreatic enzymes. She reports that she was on Pancrease many years ago, but has been off this and has not had any problems. It is possible this is also anxiety driven; however, the patient denies feeling anxious. . Her labs throughout hospitalization have been fairly remarkable. She did receive some electrolyte replacement for her magnesium of 1.8. She was instructed that she could take magnesium 400 mg p.o. daily. In regards to the patient's blood pressures throughout hospitalization, these were stable throughout. The patient was fasted for more than 12 hours and did not have any hypoglycemic episodes. Her blood sugars have remained between 90 and 104. Per the patient, she states that she has never gone hypoglycemic in the past. In regards to the patient's palpitations, she has noted PVCs on tele monitoring. She had 2 negative troponins. No changes in her EKG. The patient is stable for discharge to home. DISCHARGE MEDICATIONS: 1. Diltiazem HCl 180 mg p.o. at bedtime. 2. Zofran 4 mg p.o. q.6 hours p.r.n. 3. EpiPen p.r.n. DISCHARGE PLAN: 1. Follow up with primary care provider at 01/17/18 at 11:15 a.m. 2. Consultation with Dr. Childs on 01/15/18 at 9:30 a.m. 3. Patient may benefit from a Holter monitor 4. She may benefit from an outpatient stress test once she has been seen and evaluated by Dr. Childs. I have asked the patient to bring her records to Dr. Childs's office in which the patient states that she has a file at home she will bring with her. Again, we have sent for records a multiple times throughout her hospitalization and have not received any records from her GI in [facility]. The patient was instructed to return to the emergency department with any worsening or concerning symptoms. TIME SPENT: Approximately 75 minutes was spent on this discharge. KRISTINE UMANZOR NP [id number]/[facility] #: [id number] [place]
== END 2018-01-10 12:59 | disposition home or self-care (01) | DRG 312 ==
LOC: ED 14:14 → MEDTELE 17:51 → INTOOBSV 17:51 → OBSVTOIN 17:51
PROVIDERS: ADMIT Internal Medicine; ATTEND Internal Medicine
DX: R55 Syncope and collapse (principal); R11.0 Nausea; R42 Dizziness and giddiness; R10.11 Right upper quadrant pain; I10 Essential (primary) hypertension; K76.89 Other specified diseases of liver; D35.00 Benign neoplasm of unspecified adrenal gland; I49.3 Ventricular premature depolarization; Z88.1 Allergy status to other antibiotic agents; Z88.8 Allergy status to other drugs, medicaments and biological substances; Z90.710 Acquired absence of both cervix and uterus; Z82.49 Family history of ischemic heart disease and other diseases of the circulatory system; Z80.0 Family history of malignant neoplasm of digestive organs; Z72.89 Other problems related to lifestyle; Z90.722 Acquired absence of ovaries, bilateral; Z87.891 Personal history of nicotine dependence
CPT/HCPCS: 36415; 71045; 74183; 76705; 80048; 80053; 80076; 83497; 83605; 83690; 83735; 83835; 84484; 85025; 85610; 93005; 99283; A9270-GY; A9579; G0378; J1200; J1650; J2405; J2765; J3475

== ENCOUNTER 2018-02-13 11:56 | Observation (INO) | payer MEDICARE ==
[2018-02-13] MEDS ORDERED: Metoprolol Tartrate IV* 1 MG/ML 5 ML VIAL IV ONE (12:53)
[2018-02-13] MEDS ORDERED: Ondansetron INJ* 2 MG/ML VIAL IV ONE (12:53)
--- NOTE | 2018-02-13 12:56 | ED ---
Dizziness - HPI Summary HPI Summary: Patient is a 73 y/o F presenting to ED with complaints of dizziness, near syncope, nausea and rapid heart rate onsetting this morning. She states she experienced chest pain yesterday, which resolved by itself while she was at rest. Patient states that she experienced two similar previous episodes and was seen at [facility]. She states that she has an appointment with Dr. Lara in two days. Patient states dizziness is worse with movement, denies pressure/pain at ears. She also notes that she feels as if she is moving intermittently while lying still. Patient denies MAK, diaphoresis, fever, chills, SOB, vomiting, diarrhea. PMHx of vertigo is denied, FMHx of meniere's disease is denied. BP is 165/90 in room. Fever, chills, erythema of eyes, sore throat, SOB, cough, abdominal pain, vomiting, dysuria, hematuria, myalgia, edema, rash are not reported. On triage, pain is rated 0/10, nothing is noted to aggravate/alleviate Sx. Home medications and allergies are reviewed. - History Of Current Complaint Chief Complaint: EDDysrhythmPalp Stated Complaint: LIGHTHEADED SHORT OF BREATH Time Seen by Provider: 02/13/18 12:30 Hx Obtained From: Patient Onset/Duration: Still Present Timing: Hours Severity Currently: None - PAIN DENIED Character: Dizzy Aggravating Factor(s): Nothing Alleviating Factor(s): Nothing Associated Signs And Symptoms: Positive: Nausea, Chest Pain - yesterday, since resolved, Palpitations - rapid heart rate, Other: - Fever, chills, diaphoresis, diarrhea, erythema of eyes, sore throat, SOB, MAK, cough, abdominal pain, vomiting, dysuria, hematuria, myalgia, edema, rash are not reported.. Negative : Vomiting, Diarrhea, SOB, Fever, Chills - Allergies/Home Medications Allergies/Adverse Reactions: Allergies Allergy/AdvReac Type Severity Reaction Status Date / Time doxycycline Allergy Hives Verified 02/13/18 12:42 roque Allergy Hives Verified 02/13/18 12:42 Home Medications: Home Medications Ursodiol CAP* [Actigall CAP 300 MG*] 300 mg PO BID 02/13/18 [History Confirmed 02/13/18] PMH/Surg Hx/FS Hx/Imm Hx Endocrine/Hematology History: Reports: Other Endocrine/Hematological Disorders - insulinomas Denies: Hx Diabetes, Hx Systemic Lupus Erythematosus Cardiovascular History: Reports: Hx Hypertension, Other Cardiovascular Problems/ Disorders - mitral valve problem Denies: Hx Congestive Heart Failure, Hx Pacemaker/ICD Respiratory History: Reports: Hx Pneumonia Denies: Other Respiratory Problems/Disorders GI History: Reports: Other GI Disorders - biliary sphincter issue, pancreatic sphincter issue History: Denies: Hx Dialysis, Hx Renal Disease Musculoskeletal History: Denies: Hx Rheumatoid Arthritis Sensory History: Reports: Hx Contacts or Glasses Denies: Hx Hearing Aid Opthamlomology History: Reports: Hx Contacts or Glasses Psychiatric History: Denies: Hx Panic Disorder - Cancer History Cancer Type, Location and Year: no Hx Chemotherapy: No Hx Radiation Therapy: No - Surgical History Surgery Procedure, Year, and Place: hysterectomy 2009; billiary and pancreatic sphycterotomy; benign tumor removed from neck Hx Anesthesia Reactions: No - Immunization History Date of Tetanus Vaccine: PT STATES UNSURE Date of Influenza Vaccine: doesn't get them Infectious Disease History: No Infectious Disease History: Reports: Hx Hepatitis - since resolved, needed ERCP , History Other Infectious Disease - lyme disease Denies: Traveled Outside the [place] in Last 30 Days - Family History Known Family History: Positive: Cardiac Disease, Other - afib, [place], colon CA - Social History Alcohol Use: Rare Substance Use Type: Reports: None Hx Tobacco Use: No Smoking Status (MU): Former Smoker Type: Cigarettes Amount Used/How Often: quit 20 yrs ago Review of Systems Negative: Fever, Chills, Skin Diaphoresis Negative: Erythema Positive: Other - NEGATIVE - EAR PAIN/PRESSURE . Negative: Ear Ache Positive: Chest Pain - YESTERDAY, RESOLVED , Other - POSITIVE - RAPID HEART RATE Negative: Shortness Of Breath, Cough Positive: Nausea. Negative: Abdominal Pain, Vomiting, Diarrhea Negative: dysuria, hematuria Negative: Myalgia, Edema Negative: Rash Neurological: Other - POSITIVE - DIZZINESS Positive: Syncope - NEAR . Negative: Headache All Other Systems Reviewed And Are Negative: Yes Physical Exam - Summary Physical Exam Summary: Constitutional: Well-developed, Well-nourished, Alert. (-) Distressed Skin: Warm, Dry HENT: Normocephalic; Atraumatic Eyes: Conjunctiva normal Neck: Musculoskeletal ROM normal neck. (-) JVD, (-) Stridor, (-) Tracheal deviation Cardio: Rhythm regular, rate normal, Heart sounds normal; Intact distal pulses; The pedal pulses are 2+ and symmetric. Radial pulses are 2+ and symmetric. (-) Murmur Pulmonary/Chest wall: Effort normal. (-) Respiratory distress, (-) Wheezes, (-) Rales Abd: Soft, (-) epigastric tenderness, (-) Distension, (-) Guarding, (-) Rebound Musculoskeletal: (-) Edema Lymph: (-) Cervical adenopathy Neuro: Alert, Oriented x3; Hallpike test and supine roll test were both negative. GSC 15, NIH 0. Psych: Mood and affect Normal Triage Information Reviewed: Yes Vital Signs On Initial Exam: Initial Vitals Temp Pulse Resp BP Pulse Ox 98.3 F 114 18 165/91 97 02/13/18 11:58 02/13/18 11:58 02/13/18 11:58 02/13/18 11:58 02/13/18 11:58 Vital Signs Reviewed: Yes Diagnostics - Vital Signs Vital Signs Temp Pulse Resp BP Pulse Ox 02/13/18 11:58 98.3 F 114 18 165/91 97 - Laboratory Result Diagrams: 02/13/18 13:01 02/13/18 13:01 Lab Statement: Any lab studies that have been ordered have been reviewed, and results considered in the medical decision making process. - Radiology CXR Radiology Interpretation Completed By: Radiologist Summary of Radiographic Findings: CXR IMPRESSION: NO ACTIVE CARDIOPULMONARY DISEASE. THIS REPORT WAS REVIEWED BY ED PHYSICIAN. - CT BRAIN CT CT Interpretation Completed By: Radiologist Summary of CT Findings: BRAIN CT IMPRESSION: NO ACUTE INTRACRANIAL PATHOLOGY. THIS REPORT WAS REVIEWED BY ED PHYSICIAN. - EKG 1205 Cardiac Rate: Tachycardia - rate of 107 bpm EKG Rhythm: Sinus Tachycardia Summary of EKG Findings: EKG showed sinus tachycardia with rate of 102 BPM, no STEMI. National Institutes Of Health - NIH Scale Level of Consciousness: Alert/Keenly Responsive Ask Patient the Month and His/Her Age: Both Correct Ask Pt to Open/Close Eyes and Conventional Mortgage Underwriter/Release Non-Paretic Hand: Both Correctly Best Gaze (Only Horizontal Eye Movement): Normal Visual Field Testing: No Visual Loss Facial Paresis-Pt to Smile & Close Eyes or Grimace Symmetry: Normal/Symmetrical Motor Function - Right Arm: No Drift-Holds 10 Seconds Motor Function - Left Arm: No Drift-Holds 10 Seconds Motor Function - Right Leg: No Drift-Holds 10 Seconds Motor Function - Left Leg: No Drift-Holds 10 Seconds Limb Ataxia-Must be out of Proportion to Weakness Present: Absent Sensory (Use Pinprick to Test Arms/Legs/Trunk/Face): Normal Best Language (Describe Picture, Name Items): No Aphasia Dysarthria (Read Several Words): Normal Extinction and Inattention: No Abnormality Total Score: 0 Re-Evaluation - Re-Evaluation First Eval Re-Evaluation Time: 14:45 Change: Improved Comment: Patient reports slight improvement in Sx. BP is 130 systolic. Hospitalist to consult. Dizzy Course/Dx - Course Course Of Treatment: Patient is a 73 y/o F presenting to ED with complaints of dizziness, near syncope, nausea and rapid heart rate onsetting this morning. She states she experienced chest pain yesterday, which resolved by itself while she was at rest. Patient states that she experienced two similar previous episodes and was seen at [facility]. She states that she has an appointment with Dr. Lraa in two days. Patient states dizziness is worse with movement, denies pressure/pain at ears. She also notes that she feels as if she is moving intermittently while lying still. Patient denies MAK, diaphoresis, fever, chills , SOB, vomiting, diarrhea. PMHx of vertigo is denied, FMHx of meniere's disease is denied. BP is 165/90 in room. Hallpike test and supine roll test were both negative, no other remarkable findings of physical exam. NIH 0, GCS 15. EKG showed sinus tachycardia with rate of 102 BPM, no STEMI. BRAIN CT IMPRESSION: NO ACUTE INTRACRANIAL PATHOLOGY. CXR IMPRESSION: NO ACTIVE CARDIOPULMONARY DISEASE. Labs showed T4 7.25, TSH 1.46, trop 0, alk phos 107, glucose 111, lactic acid 1.6, absolute lymphs 0.8, MPV 7.2, MCH 32. During ED course, patient received Zofran 4 mg IV ED ONCE ONE, Lopressor IV ED ONCE ONE, and Reglan 10 mg IV SLOW PUSH ONCE ONE. 1450 - Patient's case was discussed with Dr. Georges, Dr. Georges will consult. After evaluation, Dr. Georges decided to admit patient. - Diagnoses Provider Diagnoses: Dizziness - Provider Notifications Discussed Care Of Patient With: Alessia Georges Time Discussed With Above Provider: 14:50 Instructed by Provider To: Other - 1450 - Patient's case was discussed with Dr. Georges, Dr. Georges will consult. After evaluation, Dr. Georges decided to admit patient. Discharge - Sign-Out/Discharge Documenting (check all that apply): Patient Departure - admit - Discharge Plan Condition: Good Disposition: ADMITTED TO [facility] Referrals: Karsten Cote MD [Primary Care Provider] - - Attestation Statements Document Initiated by Scribe: Yes Documenting Scribe: LOWELL ALSTON Provider For Whom Scribe is Documenting (Include Credential): TOAN ARGUELLES MD Scribe Attestation: I, LOWELL ALSTON , scribed for TOAN ARGUELLES MD on 02/13/18 at 1652. Status of Scribe Document: Ready
[2018-02-13 13:12] LABS: ABS Basophils 0.1 10^3/ul (0-0.2); ABS Eosinophils 0.1 10^3/ul (0-0.6); ABS Lymphocytes 0.8 10^3/ul (1.0-4.8); ABS Monocytes 0.5 10^3/ul (0-0.8); ABS Neutrophils 6.8 10^3/ul (1.5-7.7); ABS Nucleated RBC 0 10^3/ul; Eosinophil % 1.4 %; Hematocrit 45 % (35-47); Hemoglobin 15.4 g/dl (12.0-16.0); Mean Corpuscular HGB Conc 34 g/dl (31-36); Mean Corpuscular Hemoglobin 32 pg (27-31); Mean Corpuscular Volume 95 fL (80-97); Mean Platelet Volume 7.2 fL (7.4-10.4); Nucleated Red Blood Cells % 0; Platelet Count 231 10^3/ul (150-450); Red Cell Distribution Width 13 % (10.5-15); White Blood Count 8.3 10^3/ul (3.5-10.8)
--- OUTSIDE RECORDS SUMMARY | 2018-02-13 13:28 | XMS REPORT | Continuity of Care Document ---
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 [address] PayID: [id number] NELLA Estes [id number] Effective: 2005 Policy Number: [id number] [facility] Kenneth Mcknightter Expires: 2009 Group Name: [employer] [place] [address] [address] PayID: [id number] NELLA Estes [id number] Effective: 2012 Policy Number: [employer] Rosemarie Cowart [id number] [facility] PayID: [id number] [place] [address] NELLA Estes [id number] Advance Directives Description No Information Available Problems Description No Information Family History Date Family Member(s) Problem(s) Comments Father Cancer, Colon : (age 84 Father due to Hip Years) Fracture Father [place] Father due to Cancer, () Colon Father Arrhythmia Mother Cancer, Lung Mother due to Cancer, () Colon Mother Cancer, Colon Mother CAD Mother Arrhythmia : (age 52 First Brother due to DE sudden, no prior known Years) CAD First Sister due to Cancer, () Ovarian Maternal Grandmother Diabetes Social History Type Date Description Comments Sex Unknown Marital Status Lives With Alone Pets 1 dog 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, 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[place] [employer] [facility] Tobacco Use Start: Unknown End: Former Cigarette Smoker Unknown ETOH Use Occasionally consumes alcohol Recreational Drug Use Denies Drug Use Tobacco Use Start: Unknown End: Patient is a former smoker Unknown Smoking Status Reviewed: 06/22/17 Patient is a former smoker Enjoy Exercising Does not enjoy exercising Allergies, Adverse Reactions, Alerts Date Description Reaction Status Severity Comments 03/04/2013 Mela Active 07/08/2015 Doxycycline Active 02/27/2004 NKDA Inactive Medications Medication Date Status Form Strength Qnty SIG Indications Ordering Provider Diltiazem CD 12/23 Active Caps ER 120mg 30cap Take One 24HR s Capsule By Mango, Mouth Daily WEB WEAVER-C as Directed Epipen 2-Shon 03/22 Active Solution 0.3mg/0.3 2unit use as Auto-Injec ML s directed as eva Shelby needed WEB WEAVER-C severe allergic reaction Azithromycin 11/28 Hx Tablets 250mg 6tabs 2 tabs J06.9 today. 1 tab Shortle, - daily for SLIP MIXER 01/15 following 4 days. Cheratussin ac 11/28 Hx Solution 100-10mg/ 473ml 10 J06.9 5ML milliliters Shortle, - every 4 to 6 SLIP MIXER 01/15 hours needed; maximum daily dose: 60 ml/day Ventolin HFA 11/28 Hx Aerosol 108(90Bas 8gm 2 puff J06.9 e) inhalation Shortle, - mcg/Act every 4 to 6 SLIP MIXER 01/15 hours needed Macrobid 06/14 Hx Capsules 100mg 10cap take one N39.0 Tu s capsule by Heetderks - mouth twice , 06/22 a day Pyridium 06/14 Hx Tablets 100mg 10tab 1 tab by N39.0 Tu s mouth three Heetderks - times a day , 06/22 as needed Amoxicillin/Clav 05/25 Hx Tablets 875-125mg 14tab 1 tab by J01.90 Cindy cho s mouth twice Shortle, Potassium - a day for 7 SLIP MIXER 06/14 days 2018 Sulfamethoxazole 04/07 Hx Tablets 800-160mg 20tab 1 by mouth N39.0 Tu /Trimethoprim DS s twice a day Ryland - for MD 06/14 infection /2017 Bactrim DS 10/26 Hx Tablets 800-160mg 14tab 1 by mouth Shirley s twice a day Mango, - x 7 days WEB WEAVER-C 04/07 Amoxicillin 07/15 Hx Tablets 875mg 56tab 1 tablet Shirley s twice a day Mango, - x 28 days WEB WEAVER-C 04/07 Cyclobenzaprine 04/12 Hx Tablets 5mg 30tab 1-2 by mouth M54.9 Shirley HCL s three times Mango, - a day for WEB WEAVER-C 05/13 muscle spasm, may cause drowsiness Augmentin 01/14 Hx Tablets 875-125mg 10tab 1 take by Tu s mouth tablet Ryland - every 12 , 04/12 hours for days for infection Ciprofloxacin 01/11 Hx Tablets 250mg 10tab 1 by mouth N39.0 Matthieu HCL s twice a day Chan - for 5 days III, 04/12 for uti WEB WEAVER-C Cephalexin 10/15 Hx Tablets 500mg 21tab take 1 L03.115 Shirley s tablet by Mango, - mouth three WEB WEAVER-C 04/12 times a day 2017 x 7 days Prednisone 10/15 Hx Tablets 20mg 10tab take 2 tabs L03.115 Shirley s by mouth Mango, - every day x WEB WEAVER-C 04/12 Polymyxin B 07/07 Hx Solution 06021-6.1 10ml 1gtt in H10.89 Shirley Sulfate/Trimetho Unit/ML-% affected Mango, prim Sulfate - eyes every 4 WEB WEAVER-C 04/12 hours awake no more than 6 doses/day Doxycycline 08/30 Hx Capsules 100mg 2caps 2 tabs by Shirley Hyclate mouth today Mango, - WEB WEAVER-C 07/07 Hydrocodone-Acet 08/29 Hx Tablets 5-325mg 10ten 1 by mouth q 682.9 Shirley aminophen 6 hours as Mango, - needed WEB WEAVER-C 04/12 Ondansetron 08/29 Hx Tablets 4mg 10ten dissolve 1 682.9 Dispers tab by mouth Mango, - three times WEB WEAVER-C 04/12 a day needed nausea Cephalexin 08/27 Hx Tablets 500mg 20tab take 1 682.9 s tablet by Mango, - mouth twice WEB WEAVER-C 08/30 a day x days Protonix 05/[address] 40mg 180ta take 1 bs tablet by Mango, - mouth twice WEB WEAVER-C 04/12 a day /2016 Probiotic 05/12 Hx Shirley Mango, - WEB WEAVER-C 04/12 Cipro 05/02 Hx Tablets 500mg 18tab one twice a s day x 9 days Mango, - WEB WEAVER-C 05/12 Cipro 04/15 Hx Tablets 250mg 10tab 1 pill by 599.0 s mouth twice Mango, - a day for 5 WEB WEAVER-C 05/02 days urine infection Amoxicillin/Clav 03/04 Hx Tablets 875-125mg 14tab 1 tablet Shirley ulanate s twice a day Mango, Potassium - x 7 days WEB WEAVER-C 05/02 Doxycycline 01/17 Hx Tablets 100mg 2tabs 2 tabs by 709.9 Shirley Hyclate mouth now Mango, - WEB WEAVER-C 05/02 Oxycodone-Acetam 01/09 Hx Tablets 5-325mg 15fif 1 by mouth Shirley inophen teen every 4- 6 Mango, - hours as WEB WEAVER-C 04/12 needed severe pain Diltiazem HCL ER 12/17 Hx Caps ER 120mg 30cap take one Shirley 24HR s capsule by Mango, - mouth every WEB WEAVER-C 12/23 day directed Pantoprazole 12/[address] 20mg 60tab 1 by mouth 530.81 Shirley Sodium s twice a day Mango, - WEB WEAVER-C 05/12 Amoxicillin 08/01 Hx Tablets 875mg 20tab 1 by mouth 461.0 Shawnti s twice a day Ethan Chase, - for sinus WEB WEAVER-C 08/11 infection Oxybutynin 03/11 Hx Tablets ER 10mg 90tab 1 po qd Shirley Chloride 24HR s Mango, - WEB WEAVER-C 04/12 Crestor 03/22 Hx Tablets 5mg take 1 tablet once MD Mile - a day, 09/04 recheck fasting lipids with ast and alt prior to next refill Aspirin 03/22 Hx Tablets 81mg 100ta one po qod bs to prevent Mango, - heart attack WEB WEAVER-C 03/04 and stroke /2012 Diltiazem CD 03/22 Hx Caps ER 120mg 30cap take one 24HR s capsule by Mango, - mouth every WEB WEAVER-C 12/17 day directed Toprol XL 01/28 Hx Tablets ER 25mg /2 tab po 24HR qd to MD Mile - replace 09/04 atenolol Pancrease MT 4 11/[address] Doherty Part Erin Sesay, 11/18 M.D. Pancrease MT 10 11/[address] Luna 270ca 1Cap tid Part ps Before Meals Erin Sesay, 03/22 M.D. Estrace 03/17 Hx Tablets 1mg 1mont one po qd, 616.10 h to replace Erin Cleveland Prempro Sesay, 03/22 M.D. Activella 02/28 Hx Tablets 1-0.5mg 28tab one po qd 616.10 s Erin Sesay, 02/28 M.D. Prempro 02/28 Hx Tablets .625-2.5 28tab one po qd 616.10 s Erin Sesay, 03/17 M.D. to replace Activella Rx Diflucan 02/13 Hx Tablets 150mg 1tabs 1 Tablet 616.10 Once prn Erin Sesay, 03/22 Infection M.D. Zithromax 12/07 Hx Tablets 500mg 3tabs 1 qd X 3 461.8 Colette Tri-Shon /2006 Days July A. - Repeat After , 02/13 10 Days If [facility].N.P.C. /2006 SX Persist Robitussin ac 12/07 Hx 8Oz 1-2 tsp po 461.8 Colette every 4-6 A. - hours prn Aleks, 12/17 cough [facility].N.P.C. /2006 Epipen 08/26 Hx Injection 0.3mg 2unit use as s directed prn P. - severe Blegen, 03/22 allergic M.D. reaction Prednisone 08/26 Hx Tablets 10mg 30QS 5 PO qd X 2 Days Then 4 P. - PO qd X 2 Blegen, 03/22 Days Then 3 M.D. PO qd X 2 Days Then 2 PO qd X 2 Days Then 1 PO qd X 2 Days Then Stop Augmentin 08/26 Hx Tablets 500mg;125 14tab one po bid mg s for 7 days P. - Blegen, 02/13 M.D. Celexa 06/09 Hx Tablets 10mg 30tab 1 po qd for 627.2 s hot flashes Erin Sesay, 03/22 M.D. Zyrtec 06/09 Hx Tablets 10mg 30tab one qhs prn 782.1 s allergies or K.W. - rash Lázaro, 03/22 M.D. Provera 12/09 Hx Tablets 10mg 5tabs one qd starting K.W. - today for 06/09 five days, M.D. then start ocps Ortho-Novum 12/09 Hx Tablets 1mg;0.035 2mont one po qd ud mg hs to start K.W. - after 06/09 provera rx M.D. Prilosec 07/12 Hx Capsules 20mg 90cap one qd prn 536.8 s nausea Erin Sesay, 03/22 M.D. Return To Work 07/12 Hx PT.july 787.02 return to K.W. - work with no Lázaro, 12/07 restrictions M.D. on july 14, 2004 Pancrease 06/25 Hx Capsules 4500U;250 270ca one po tid 00U;49403 ps before meals K.W. - U Lázaro, 11/18 M.D. Reglan 06/25 Hx Tablets 5mg 180ta 1 to 2 po 787.02 bs bid prn K.W. - nausea and Lázaro, 03/22 early M.D. satiety Kenalog 06/25 Hx Ointment 0.5% 15gm apply to 782.1 eyelid rash K.W. - bid prn Lázaro, 03/22 M.D. Excuse From Work 06/25 Hx out of work 787.02 06-09-04 K.WBarak - through Lázaro, 07/1207-05-04 for .D. medical illness. Cipro 06/19 Hx Tablets 250mg 10tab one bid x 5 s jovany Cote - M.DBarak 06/25 Pyridium 06/19 Hx Tablets 100mg 20tab 1-2 tid prn s Rocael - M.D. 06/25 Phenergan 06/19 Hx Tablets 25mg 30tab One tid prn s Rocael - M.D. 09/17 Robafen ac 06/04 Hx Syrup 100mg;10G 8Oz one to two Colette M/5ML tsp po every A. - 4-6 hours 06/04 prn cough [facility].N.[facility] /2004 Robitussin A-c 06/04 Hx Syrup 100mg;10m 8Oz one to two 466.0 Colette g/5ML tsp po every A. - four hours 06/25 prn cough [facility].N.P.[facility]. /2004 Diflucan 03/01 Hx Tablets 150mg 1tabs 1 tablet Colette /2003 once prn A. - 05/31 F.N.P.C. /2004 Cipro 12/10 Hx Tablets 500mg 20tab one po bid 590.80 Colette s for 10 days A. - Aleks, 05/31 [facility] Pyridium 12/10 Hx Tablets 200mg 6tabs take one 599.0 Colette tablet tid A. - with food , 03/01 for two days [facility].N.[facility] prn Augmentin 10/25 Hx Tablets 875mg 40tab one bid 461.1 s [id number] Erin Sesay, 06/20 M.D. Zantac /25 Hx Tablets 150mg 60tab 1 PO bid 787.02 s Erin Sesay, 02/26 M.D. Atenolol 07/08 Hx Tablets 25mg 90tab take one s tablet daily Ethan Chase, - as needed WEB WEAVER-C 02/02 palpitations Pancrease 07/08 Hx Capsules 90cap take 3 times s per day 1/2 K.W. - hr before Lázaro, 06/25 meals M.D. Mircette Hx Tablets 0.02mg;0. 1tabs 1 po qd Unknown /0000 15mg;0.01 - MG 12/07 Estradiol Hx Tablets 0.5mg 30tab 1/2 tab po Shirley /0000 s daily Mango, - WEB WEAVER-C 03/04 [place] 3 Hx Capsules 1000mg Unknown /0000 - 04/12 Oxybutynin Hx Tablets ER 5mg 90tab take one by Naim,Maso Chloride ER /0000 24HR s mouth every od M.D. - day 03/11 Vitamin D3 High Hx Capsules 2000Unit one by mouth Unknown Potency /0000 every other - day 05/13 Immunizations CPT Code Status Date Vaccine Lot # [id number] Refused 06/14/2017 Influenza Virus Vaccine, Quadrivalent, 3 Yr > Quad , Preserv Free Vital Signs Date Vital Result Comment 01/15/2018 3:12pm Weight 113.00 lb Weight 51.257 kg BP Systolic 120 mmHg BP Diastolic 60 mmHg Heart Rate 73 /min Body Temperature 96.6 F Respiratory Rate 16 /min O2 % BldC Oximetry 96 % 01/06/2018 11:50am Weight 118.00 lb Weight 53.525 kg BP Systolic 144 mmHg BP Diastolic 78 mmHg Heart Rate 74 /min Body Temperature 98.5 F Respiratory Rate 16 /min O2 % BldC Oximetry 98 % 11/28/2017 9:54am Weight 116.00 lb Weight 52.618 kg BP Systolic 124 mmHg BP Diastolic 74 mmHg Heart Rate 72 /min Body Temperature 97.7 F Respiratory Rate 16 /min O2 % BldC Oximetry 98 % 06/22/2017 7:55am Weight 114.00 lb Weight 51.710 kg BP Systolic 122 mmHg BP Diastolic 68 mmHg Heart Rate 76 /min Body Temperature 97.4 F Respiratory Rate 16 /min Height 61.5 inches 5'1.50" BMI (Body Mass Index) 21.2 kg/m2 06/14/2017 3:06pm BP Systolic 123 mmHg BP Diastolic 60 mmHg Heart Rate 80 /min Body Temperature 97.7 F O2 % BldC Oximetry 96 % 05/25/2017 10:10am Weight 115.00 lb Weight 52.164 kg BP Systolic 132 mmHg BP Diastolic 78 mmHg Heart Rate 86 /min Body Temperature 97.3 F O2 % BldC Oximetry 98 % 04/07/2017 11:08am Weight 115.00 lb Weight 52.164 kg BP Systolic 120 mmHg BP Diastolic 70 mmHg Heart Rate 76 /min Body Temperature 97.5 F Respiratory Rate 12 /min 05/13/2016 9:27am Weight 115.00 lb Weight 52.164 kg BP Systolic 120 mmHg BP Diastolic 82 mmHg Heart Rate 78 /min Body Temperature 96.5 F Respiratory Rate 14 /min O2 % BldC Oximetry 98 % 04/12/2016 4:09pm Weight 115.00 lb Weight 52.164 kg BP Systolic 132 mmHg BP Diastolic 78 mmHg Heart Rate 84 /min Body Temperature 96.8 F Respiratory Rate 14 /min O2 % BldC Oximetry 98 % 01/12/2016 4:04pm Weight 119.00 lb Weight 53.978 kg BP Systolic 120 mmHg BP Diastolic 80 mmHg Heart Rate 76 /min Body Temperature 97.6 F Respiratory Rate 12 /min 10/16/2015 3:28pm Weight 115.00 lb Weight 52.164 kg BP Systolic 123 mmHg BP Diastolic 79 mmHg Heart Rate 80 /min Body Temperature 99.2 F Ibuprofen 1:30 400 mg 07/08/2015 4:32pm Weight 117.00 lb Weight 53.071 kg BP Systolic 123 mmHg BP Diastolic 80 mmHg Heart Rate 96 /min 09/03/2014 11:48am Weight 110.00 lb Weight 49.896 kg BP Systolic 140 mmHg BP Diastolic 70 mmHg Heart Rate 76 /min Body Temperature 97.2 F 09/01/2014 9:21am Weight 110.00 lb Weight 49.896 kg BP Systolic 120 mmHg BP Diastolic 78 mmHg Heart Rate 62 /min Body Temperature 98.0 F 08/29/2014 12:31pm BP Systolic 160 mmHg BP Diastolic 90 mmHg Heart Rate 109 /min Body Temperature 98.9 F Ibeprofen 2 HRS Ago O2 % BldC Oximetry 98 % 08/27/2014 3:38pm Weight 112.00 lb Weight 50.803 kg BP Systolic 140 mmHg BP Diastolic 80 mmHg Heart Rate 72 /min Body Temperature 101.4 F Ibuprofen 1:30pm Both Visual Acuity Distance 97 05/12/2014 10:51am Weight 112.00 lb W/Boots Weight 50.803 kg BP Systolic 114 mmHg BP Diastolic 70 mmHg Heart Rate 80 /min Body Temperature 98.5 F 04/29/2014 9:31am Weight 110.00 lb Weight 49.896 kg BP Systolic 120 mmHg L130/14eg024/10k840/70 BP Diastolic 60 mmHg L130/01he820/86b689/70 Heart Rate 112 /min [id number] Body Temperature 100.7 F Tylenol This Am 103.5 O2 % BldC Oximetry 98 % 04/15/2014 9:36am Weight 110.00 lb Weight 49.896 kg BP Systolic 118 mmHg BP Diastolic 72 mmHg Heart Rate 84 /min Body Temperature 97.4 F 01/17/2014 11:24am Weight 113.00 lb Weight 51.257 kg BP Systolic 120 mmHg BP Diastolic 70 mmHg Heart Rate 62 /min 01/06/2014 3:37pm Weight 112.00 lb Boots N Heavy Sweater Weight 50.803 kg BP Systolic 130 mmHg BP Diastolic 70 mmHg Heart Rate 76 /min Body Temperature 98.5 F O2 % BldC Oximetry 98 % 12/13/2013 5:10pm Weight 109.00 lb Weight 49.442 kg BP Systolic 120 mmHg BP Diastolic 80 mmHg Heart Rate 62 /min Body Temperature 98.1 F 08/01/2013 12:05pm Weight 107.00 lb Weight 48.535 kg BP Systolic 102 mmHg BP Diastolic 78 mmHg Heart Rate 72 /min Body Temperature 98.7 F 03/04/2013 1:28pm Weight 105.00 lb Weight 47.628 kg BP Systolic 120 mmHg BP Diastolic 80 mmHg Heart Rate 100 /min Height 61.5 inches 5'1.50" BMI (Body Mass Index) 19.5 kg/m2 09/05/2011 8:05am Weight 110.00 lb Weight 49.896 kg BP Systolic 108 mmHg BP Diastolic 64 mmHg Heart Rate 76 /min Height 62 inches 5'2" BMI (Body Mass Index) 20.1 kg/m2 03/22/2010 11:32am Weight 115.00 lb Weight 52.164 kg BP Systolic 130 mmHg BP Diastolic 78 mmHg Heart Rate 80 /min Height 61.50 inches 5'1.50" BMI (Body Mass Index) 21.4 kg/m2 11/18/2008 9:08am Weight 119.00 lb Weight 53.978 kg BP Systolic 110 mmHg BP Diastolic 60 mmHg Heart Rate 64 /min Height 61.5 inches 5'1.50" BMI (Body Mass Index) 22.1 kg/m2 02/28/2007 10:43am Weight 118.00 lb Weight 53.525 kg BP Systolic 110 mmHg BP Diastolic 70 mmHg Respiratory Rate 18 /min Height 61 inches 5'1" BMI (Body Mass Index) 22.3 kg/m2 02/13/2007 4:35pm Weight 118.00 lb Weight 53.525 kg BP Systolic 120 mmHg BP Diastolic 80 mmHg Heart Rate 68 /min Height 61 inches 5'1" BMI (Body Mass Index) 22.3 kg/m2 12/07/2006 2:51pm Weight 120.00 lb Weight 54.432 kg BP Systolic 110 mmHg BP Diastolic 60 mmHg Body Temperature 98.6 F Height 61 inches 5'1" BMI (Body Mass Index) 22.7 kg/m2 08/26/2006 10:11am Weight 119.00 lb Weight 53.978 kg Body Temperature 96.6 F Height 61 inches 5'1" BMI (Body Mass Index) 22.5 kg/m2 06/06/2006 3:25pm Weight 125.00 lb Weight 56.700 kg BP Systolic 132 mmHg BP Diastolic 80 mmHg Body Temperature 98.2 F Height 61 inches 5'1" BMI (Body Mass Index) 23.6 kg/m2 09/14/2005 12:42pm Weight 126.00 lb Weight 57.154 kg BP Systolic 128 mmHg BP Diastolic 82 mmHg Body Temperature 97.6 F Height 61 inches 5'1" BMI (Body Mass Index) 23.8 kg/m2 06/09/2005 11:58am Weight 123.00 lb Weight 55.793 kg BP Systolic 124 mmHg BP Diastolic 68 mmHg Body Temperature 98.3 F Height 61 inches 5'1" BMI (Body Mass Index) 23.2 kg/m2 04/12/2005 10:38am Weight 116.00 lb Weight 52.618 kg BP Systolic 102 mmHg BP Diastolic 68 mmHg Heart Rate 72 /min Body Temperature 97.8 F Height 61 inches 5'1" BMI (Body Mass Index) 21.9 kg/m2 03/10/2005 12:06pm Weight 128.00 lb Weight 58.061 kg BP Systolic 120 mmHg BP Diastolic 80 mmHg Heart Rate 80 /min 12/07/2004 9:49am Weight 122.00 lb Weight 55.339 kg BP Systolic 110 mmHg BP Diastolic 70 mmHg Heart Rate 60 /min Body Temperature 96.5 F Respiratory Rate 16 /min 07/12/2004 11:10am Weight 122.00 lb Weight 55.339 kg BP Systolic 130 mmHg BP Diastolic 80 mmHg Heart Rate 80 /min 06/25/2004 11:39am Weight 120.00 lb Weight 54.432 kg BP Systolic 110 mmHg BP Diastolic 70 mmHg Heart Rate 80 /min Respiratory Rate 18 /min 06/19/2004 9:48am Weight 117.00 lb Weight 53.071 kg BP Systolic 98 mmHg BP Diastolic 60 mmHg Body Temperature 97.4 F 06/04/2004 9:49am Weight 124.00 lb Weight 56.246 kg BP Systolic 144 mmHg BP Diastolic 80 mmHg Heart Rate 84 /min Body Temperature 97.0 F Respiratory Rate 18 /min Last Menstrual Period 0 O2 % BldC Oximetry 97 % 05/31/2004 10:34am Weight 123.00 lb Weight 55.793 kg BP Systolic 120 mmHg BP Diastolic 78 mmHg Body Temperature 98.2 F 03/01/2004 12:36pm BP Systolic 98 mmHg BP Diastolic 62 mmHg Body Temperature 98.0 F 02/27/2004 3:26pm Weight 118.00 lb Weight 53.525 kg BP Systolic 110 mmHg BP Diastolic 60 mmHg Body Temperature 97.0 F 01/12/2004 10:03am Weight 119.00 lb Weight 53.978 kg BP Systolic 110 mmHg BP Diastolic 70 mmHg Body Temperature 97.2 F 10/22/2002 9:57am Weight 116.00 lb Weight 52.618 kg BP Systolic 110 mmHg BP Diastolic 72 mmHg Body Temperature 97.7 F 07/08/2002 2:56pm Weight 115.00 lb Weight 52.164 kg BP Systolic 106 mmHg BP Diastolic 72 mmHg Heart Rate 68 /min Height 61 inches BMI (Body Mass Index) 21.7 kg/m2 Results Test Date Facility Test Result H/L Range Note Inr/Protime 01/07/2018 [facility] Inr 1.02 0.77- 1.02 [phone] Laboratory test 01/07/2018 [facility] Troponin-I 0.00 ng/mL <0.04 finding [phone] (TnI) Laboratory test 01/07/2018 [facility] Lactic Acid 1.7 mmol/L 0.5-2.0 1 finding [phone] CBC Auto Diff 01/07/2018 [facility] White Blood 8.3 10^3/uL 3.5-10.8 [phone] Count Red Blood Count 4.59 10^6/uL 4.00-5.40 Hemoglobin 15.2 g/dL 12.0-16.0 Hematocrit 44 % 35-47 Mean Corpuscular Volume 96 fL 80-97 Mean Corpuscular Hemoglobin 33 pg High 27-31 Mean Corpuscular HGB Conc 34 g/dL 31-36 Red Cell Distribution Width 13 % 10.5-15 Platelet Count 227 10^3/uL 150-450 Mean Platelet Volume 7.3 um3 Low 7.4-10.4 Abs Neutrophils 6.6 10^3/uL 1.5-7.7 Abs Lymphocytes 1.1 10^3/uL 1.0-4.8 Abs Monocytes 0.4 10^3/uL 0-0.8 Abs Eosinophils 0.1 10^3/uL 0-0.6 Abs Basophils 0 10^3/uL 0-0.2 Abs Nucleated RBC 0 10^3/uL Granulocyte % 79.5 % 38-83 Lymphocyte % 13.5 % Low 25-47 Monocyte % 5.2 % 0-7 Eosinophil % 1.5 % 0-6 Basophil % 0.3 % 0-2 Nucleated Red Blood Cells % 0 Comp Metabolic Panel 01/07/2018 [facility] Sodium 140 mmol/L 135-145 [phone] Potassium 3.8 mmol/L 3.5-5.0 Chloride 108 mmol/L 101-111 Co2 Carbon Dioxide 22 mmol/L 22-32 Anion Gap 10 mmol/L 2-11 Glucose 90 mg/dL 70-100 Blood Urea Nitrogen 11 mg/dL 6-24 Creatinine 0.75 mg/dL 0.51-0.95 BUN/Creatinine Ratio 14.7 8-20 Calcium 9.1 mg/dL 8.6-10.3 Total Protein 7.1 g/dL 6.4-8.9 Albumin 4.4 g/dL 3.2-5.2 Globulin 2.7 g/dL 2-4 Albumin/Globulin Ratio 1.6 1-3 Total Bilirubin 0.50 mg/dL 0.2-1.0 Alkaline Phosphatase 94 U/L 34-104 Alt 17 U/L 7-52 Ast 20 U/L 13-39 Egfr Non- 76.4 >60 Egfr 92.4 >60 2 Laboratory test 01/07/2018 [facility] Lipase 35 U/L 11.0-82.0 finding [phone] Troponin-I (TnI) 0.00 ng/mL <0.04 Urinalysis Profile 01/06/2018 [facility] Urine Color Yellow [phone] Urine Appearance Cloudy Urine Specific [place] 1.008 Low 1.010-1.030 Urine pH 7.0 5-9 Urine Urobilinogen Negative Negative Urine Ketones 1+ Negative Urine Protein Negative Negative Urine Leukocytes Negative Negative Urine Blood Negative Negative Urine Nitrite Negative Negative Urine Bilirubin Negative Negative Urine Glucose Negative Negative Laboratory test 01/06/2018 [facility] B-Type 42 pg/ mL 3 finding [phone] Natriuretic Peptide BNP Laboratory test 01/06/2018 [facility] Lactic Acid 2.1 mmol/L High 0.5-2 4 finding [phone] Laboratory test 01/06/2018 [facility] Thyroxine 9.18 6.09- finding [phone] g/mL 12.23 Laboratory test 01/06/2018 [facility] TSH (Thyroid 1.10 0.34- finding [phone] Stimulating mcIU/mL 5.60 Horm) CBC Auto Diff 01/06/2018 [facility] White Blood 9.1 3.5-4 [phone] Count 10^3/uL 0.8 Red Blood Count 4.71 10^6/uL 4.00-5.40 Hemoglobin 15.9 g/dL 12.0-16.0 Hematocrit 45 % 35-47 Mean Corpuscular Volume 96 fL 80-97 Mean Corpuscular Hemoglobin 34 pg High 27-31 Mean Corpuscular HGB Conc 35 g/dL 31-36 Red Cell Distribution Width 13 % 10.5-15 Platelet Count 236 10^3/uL 150-450 Mean Platelet Volume 7.5 um3 7.4-10.4 Abs Neutrophils 8.0 10^3/uL High 1.5-7.7 Abs Lymphocytes 0.7 10^3/uL Low 1.0-4.8 Abs Monocytes 0.4 10^3/uL 0-0.8 Abs Eosinophils 0.1 10^3/uL 0-0.6 Abs Basophils 0 10^3/uL 0-0.2 Abs Nucleated RBC 0 10^3/uL Granulocyte % 87.2 % High 38-83 Lymphocyte % 7.7 % Low 25-47 Monocyte % 4.2 % 0-7 Eosinophil % 0.6 % 0-6 Basophil % 0.3 % 0-2 Nucleated Red Blood Cells % 0 Inr/Protime 01/06/2018 [facility] Inr 0.95 0.77- 1.02 [phone] Laboratory test 01/06/2018 [facility] Partial 30.0 seconds 26.0-36.3 finding [phone] Thrombo Time PTT D Dimer Quantitative < 200 ng/mL Less Than 230 5 Comp Metabolic Panel 01/06/2018 [facility] Sodium 142 mmol/L 135-145 [phone] Potassium 4.2 mmol/L 3.5-5.0 Chloride 104 mmol/L 101-111 Co2 Carbon Dioxide 25 mmol/L 22-32 Anion Gap 13 mmol/L High 2-11 Glucose 104 mg/dL High 70-100 Blood Urea Nitrogen 13 mg/dL 6-24 Creatinine 0.66 mg/dL 0.51-0.95 BUN/Creatinine Ratio 19.7 8-20 Calcium 9.7 mg/dL 8.6-10.3 Total Protein 7.7 g/dL 6.4-8.9 Albumin 4.6 g/dL 3.2-5.2 Globulin 3.1 g/dL 2-4 Albumin/Globulin Ratio 1.5 1-3 Total Bilirubin 0.50 mg/dL 0.2-1.0 Alkaline Phosphatase 115 U/L High 34-104 Alt 15 U/L 7-52 Ast 20 U/L 13-39 Egfr Non- 88.5 >60 Egfr 107.1 >60 6 CKMB 01/06/2018 [facility] CKMB ng/mL 3.0 ng/mL 0.6-6.3 [phone] Laboratory test 01/06/2018 [facility] Magnesium 2.2 mg/dL 1.9-2.7 finding [phone] Amylase 44 U/L 29-103 Lipase 25 U/L 11.0-82.0 Creatine Kinase 111 U/L 10-223 Troponin-I (TnI) 0.00 ng/mL <0.04 Laboratory test 06/22/2017 [facility] Cytology SEE RESULT 7 finding [phone] BELOW CBC Auto Diff 06/22/2017 [facility] White Blood 8.8 10^3/uL 3.5-10 [phone] Count .8 Red Blood Count 4.69 10^6/uL 4.0-5.4 Hemoglobin 15.3 g/dL 12.0-16.0 Hematocrit 45 % 35-47 Mean Corpuscular Volume 96 fL 80-97 Mean Corpuscular Hemoglobin 33 pg High 27-31 Mean Corpuscular HGB Conc 34 g/dL 31-36 Red Cell Distribution Width 14 % 10.5-15 Platelet Count 266 10^3/uL 150-450 Mean Platelet Volume 7.6 um3 7.4-10.4 Abs Neutrophils 6.2 10^3/uL 1.5-7.7 Abs Lymphocytes 1.6 10^3/uL 1.0-4.8 Abs Monocytes 0.6 10^3/uL 0-0.8 Abs Eosinophils 0.3 10^3/uL 0-0.6 Abs Basophils 0 10^3/uL 0-0.2 Abs Nucleated RBC 0 10^3/uL Granulocyte % 70.7 % 38-83 Lymphocyte % 18.3 % Low 25-47 Monocyte % 7.3 % High 0-7 Eosinophil % 3.2 % 0-6 Basophil % 0.5 % 0-2 Nucleated Red Blood Cells % 0.1 Urine DIP 06/22/2017 In House Lab Leukocytes trace Neg (607)- - Urine Nitrites neg Neg Urobilinogen neg Norm Total Protein, Urine neg Neg Urine pH 8 High 5-6 Urine Blood neg Neg Specific [place] 1.025 High 1.01-1.02 Urine Ketones neg Neg Urine Bilirubin neg Neg Urine Glucose neg Norm Laboratory 06/22/2017 [facility] Hepatitis C Nonreactive Nonreactive 8 test finding [phone] Antibody Liver Function 06/22/2017 [facility] Direct 0.10 mg/ dL 0.03-0.18 Panel [phone] Bilirubin Indirect Bilirubin 0.3 mg/dL 0.3-1.0 Lipid Profile 06/22/2017 [facility] Triglycerides 73 mg/dL 9 (Trig/Chol/HDL) [phone] Cholesterol 206 mg/dL 10 HDL Cholesterol 66.9 mg/dL 11 LDL Cholesterol 125 mg/dL 12 Comp Metabolic Panel 06/22/2017 [facility] Sodium 143 mmol/L 139-145 [phone] Potassium 4.7 mmol/L 3.5-5.0 Chloride 104 mmol/L 101-111 Co2 Carbon Dioxide 31 mmol/L 22-32 Anion Gap 8 mmol/L 2-11 Glucose 88 mg/dL 70-100 Blood Urea Nitrogen 13 mg/dL 6-24 Creatinine 0.69 mg/dL 0.51-0.95 BUN/Creatinine Ratio 18.8 8-20 Calcium 9.7 mg/dL 8.6-10.3 Total Protein 7.3 g/dL 6.4-8.9 Albumin 4.4 g/dL 3.2-5.2 Globulin 2.9 g/dL 2-4 Albumin/Globulin Ratio 1.5 1-3 Total Bilirubin 0.40 mg/dL 0.2-1.0 Alkaline Phosphatase 88 U/L 34-104 Alt 14 U/L 7-52 Ast 17 U/L 13-39 Egfr Non- 84.1 >60 Egfr 108.2 >60 13 Urine Culture And 06/14/2017 [facility] Urine Culture SEE RESULT 14 Sensitivities [phone] BELOW Urine DIP 06/14/2017 [facility] House Lab Leukocytes ++ Neg (607)- - Urine Nitrites POS Neg Urobilinogen NORM Norm Total Protein, Urine TRACE Neg Urine pH 5 5-6 Urine Blood ++++ Neg Specific [place] 1.025 High 1.01-1.02 Urine Ketones NEG Neg Urine Bilirubin NEG Neg Urine Glucose NORM Norm Laboratory test 04/07/2017 [facility] Urine Culture And SEE RESULT 15, 16 finding [phone] Sensitivities BELOW Urine DIP 04/07/2017 In House Lab Leukocytes ++ Neg (607)- - Urine Nitrites neg Neg Urobilinogen norm Norm Total Protein, Urine neg Neg Urine pH 5 5-6 Urine Blood 250 High Neg Specific [place] 1.005 Low 1.01-1.02 Urine Ketones neg Neg Urine Bilirubin neg Neg Urine Glucose norm Norm Laboratory test 10/26/2016 [facility] Urine Culture And SEE RESULT 17 finding [phone] Sensitivities BELOW Urine DIP 10/26/2016 In House Lab Leukocytes ++ Neg (607)- - Urine Nitrites NEG Neg Urobilinogen NORM Norm Total Protein, Urine NEG Neg Urine pH 5 5-6 Urine Blood TRACE Neg Specific [place] 1.025 High 1.01-1.02 Urine Ketones NEG Neg Urine Bilirubin NEG Neg Urine Glucose NORM Norm Laboratory test 05/18/2016 [facility] C Reactive 6.94 mg/L High < 5.00 18 finding [phone] Protein Afp Tumor Marker 3.6 ng/mL 19 Smooth Muscle Antibody Negative Negative 20 Anca AB Ser If 05/18/2016 [facility] C-Anca Negative Negative [phone] P-Anca Negative Negative 21 Laboratory test 05/18/2016 [facility] Mitochondria M2 <0.1 U 22 finding [phone] Antibody Anti Nuclear Antibody 0.5 U 23 Alpha 1 Antitrypsin A1a 138 mg/dL 100 - 190 24 CBC Auto Diff 04/26/2016 [facility] White Blood 6.7 10^3/uL 3.5-10.8 [phone] Count Red Blood Count 4.96 10^6/uL 4.0-5.4 Hemoglobin 15.8 g/dL 12.0-16.0 Hematocrit 47 % 35-47 Mean Corpuscular Volume 95 fL 80-97 Mean Corpuscular Hemoglobin 32 pg High 27-31 Mean Corpuscular HGB Conc 34 g/dL 31-36 Red Cell Distribution Width 13 % 10.5-15 Platelet Count 219 10^3/uL 150-450 Mean Platelet Volume 8 um3 7.4-10.4 Abs Neutrophils 4.9 10^3/uL 1.5-7.7 Abs Lymphocytes 1.0 10^3/uL 1.0-4.8 Abs Monocytes 0.5 10^3/uL 0-0.8 Abs Eosinophils 0.2 10^3/uL 0-0.6 Abs Basophils 0 10^3/uL 0-0.2 Abs Nucleated RBC 0.02 10^3/uL Granulocyte % 73.3 % 38-83 Lymphocyte % 15.5 % Low 25-47 Monocyte % 7.6 % 1-9 Eosinophil % 3.0 % 0-6 Basophil % 0.6 % 0-2 Nucleated Red Blood Cells % 0.3 Comp Metabolic Panel 04/26/2016 [facility] Sodium 140 mmol/L 133-145 [phone] Potassium 4.3 mmol/L 3.5-5.0 Chloride 104 mmol/L 101-111 Co2 Carbon Dioxide 29 mmol/L 22-32 Anion Gap 7 mmol/L 2-11 Glucose 84 mg/dL 70-100 Blood Urea Nitrogen 12 mg/dL 6-24 Creatinine 0.79 mg/dL 0.51-0.95 BUN/Creatinine Ratio 15.2 8-20 Calcium 9.6 mg/dL 8.6-10.3 Total Protein 7.1 g/dL 6.4-8.9 Albumin 4.4 g/dL 3.2-5.2 Globulin 2.7 g/dL 2-4 Albumin/Globulin Ratio 1.6 1-3 Total Bilirubin 0.70 mg/dL 0.2-1.0 Alkaline Phosphatase 94 U/L 34-104 Alt 11 U/L 7-52 Ast 17 U/L 13-39 Egfr Non- 72.2 >60 Egfr 92.8 >60 25 Lipid Profile 04/26/2016 [facility] Triglycerides 78 mg/dL 26 (Trig/Chol/HDL) [phone] Cholesterol 187 mg/dL 27 HDL Cholesterol 62.6 mg/dL 28 LDL Cholesterol 109 mg/dL 29 Laboratory test 01/12/2016 [facility] Urine Culture And SEE RESULT 30 finding [phone] Sensitivities BELOW Urinalysis 01/12/2016 [facility] Urine Color Yellow Profile [phone] Urine Appearance Cloudy Urine Specific [place] 1.016 1.010-1.030 Urine pH 6.0 5-9 Urine Urobilinogen Negative Negative Urine Ketones Trace Negative Urine Protein Negative Negative Urine Leukocytes 3+ Negative Urine Blood 1+ Negative Urine Nitrite Negative Negative Urine Bilirubin Negative Negative Urine Glucose Negative Negative Urine White Blood Cell 3+(>20/hpf) Absent Urine Red Blood Cell 2+(6-10/hpf) Absent Urine Bacteria Absent Absent Urine Squamous Epithelial Cell Present Absent Urine Transitional Epithelial Present Absent Urine DIP 01/12/2016 In House Lab Leukocytes + Neg (607)- - Urine Nitrites neg Neg Urobilinogen norm Norm Total Protein, Urine neg Neg Urine pH 5 5-6 Urine Blood 50 High Neg Specific [place] 1.020 1.01-1.02 Urine Ketones neg Neg Urine Bilirubin neg Neg Urine Glucose norm Norm Laboratory test 09/03/2014 [facility] Wound Culture/ Sensi SEE RESULT 31 finding [phone] BELOW Laboratory test 08/29/2014 [facility] Wound Culture/ Sensi SEE RESULT 32 finding [phone] BELOW Urinalysis 04/29/2014 [facility] Urine Color Yellow Profile [phone] Urine Appearance Cloudy Urine Specific [place] 1.009 Low 1.010-1.030 Urine pH 7.0 5-9 Urine Urobilinogen Negative Negative Urine Ketones 1+ Negative Urine Protein Negative Negative Urine Leukocytes Trace Negative Urine Blood Negative Negative Urine Nitrite Negative Negative Urine Bilirubin Negative Negative Urine Glucose Negative Negative Urine White Blood Cell Trace(0-5/hpf) Absent Urine Red Blood Cell Trace(0-2/hpf) Absent Urine Bacteria Absent Absent Urine Squamous Epithelial Cell Present Absent CBC Auto Diff 04/29/2014 [facility] White Blood 10.2 10^3/uL 4.8-10.8 [phone] Count Red Blood Count 4.61 10^6/uL 4.0-5.4 Hemoglobin 15.0 g/dL 12.0-16.0 Hematocrit 44 % 35-47 Mean Corpuscular Volume 95 fL 80-97 Mean Corpuscular Hemoglobin 33 pg High 27-31 Mean Corpuscular HGB Conc 34 g/dL 31-36 Red Cell Distribution Width 13 % 10.5-15 Platelet Count 179 10^3/uL 150-450 Mean Platelet Volume 7 um3 Low 7.4-10.4 Abs Neutrophils 9.2 10^3/uL High 1.5-7.7 Abs Lymphocytes 0.5 10^3/uL Low 1.0-4.8 Abs Monocytes 0.4 10^3/uL 0-0.8 Abs Eosinophils 0 10^3/uL 0-0.6 Abs Basophils 0 10^3/uL 0-0.2 Abs Nucleated RBC 0.01 10^3/uL Granulocyte % 90.4 % High 38-83 Lymphocyte % 4.8 % Low 25-47 Monocyte % 4.2 % 1-9 Eosinophil % 0.2 % 0-6 Basophil % 0.4 % 0-2 Nucleated Red Blood Cells % 0.1 Inr/Protime 04/29/2014 [facility] Inr 1.09 High 0.78-1.07 33 [phone] Laboratory test 04/29/2014 [facility] Activated 31.1 24.0-36.1 finding [phone] Partial seconds Thrombo Time Comp Metabolic 04/29/2014 [facility] Sodium 134 mmol/ L 133-145 Panel [phone] Potassium 3.5 mmol/L 3.5-5.0 Chloride 102 mmol/L 101-111 Co2 Carbon Dioxide 25 mmol/L 22-32 Anion Gap 7 mmol/L 2-11 Glucose 96 mg/dL 70-100 Blood Urea Nitrogen 8 mg/dL 6-24 Creatinine 0.63 mg/dL 0.51-0.95 BUN/Creatinine Ratio 12.7 8-20 Calcium 9.1 mg/dL 8.6-10.3 Total Protein 6.8 g/dL 6.4-8.9 Albumin 4.3 g/dL 3.2-5.2 Globulin 2.5 g/dL 2-4 Albumin/Globulin Ratio 1.7 1-3 Total Bilirubin 0.60 mg/dL 0.2-1.0 Alkaline Phosphatase 80 U/L 34-104 Alt 14 U/L 7-52 Ast 19 U/L 13-39 Egfr Non- 94.3 >60 Egfr 121.2 >60 34 Laboratory test 04/29/2014 [facility] Lactic Acid 0.6 mmol/L 0.5-2.2 finding [phone] Laboratory test 04/29/2014 In House Lab Strep Screen neg Neg finding [phone] - Flu Test A, B, 04/29/2014 In House Lab Influenza A neg Or A & B,Binaxn (607)- - Antigen Influenza B Antigen neg Clotest 04/23/2014 [facility] Clotest (SEE NOTE) 35 [phone] Liver Function 04/23/2014 [facility] Total Protein 6.4 g/dL 6.4-8.9 Panel [phone] Albumin 4.1 g/dL 3.2-5.2 Globulin 2.3 g/dL 2-4 Albumin/Globulin Ratio 1.8 1-3 Total Bilirubin 0.40 mg/dL 0.2-1.0 Direct Bilirubin 0.10 mg/dL 0.03-0.18 Indirect Bilirubin 0.3 mg/dL 0.3-1.0 Alkaline Phosphatase 77 U/L 34-104 Alt 17 U/L 7-52 Ast 21 U/L 13-39 Lipid Profile 04/23/2014 [facility] Triglycerides 79 mg/dL 36 (Trig/Chol/HDL) [phone] Cholesterol 197 mg/dL 37 HDL Cholesterol 59.4 mg/dL 38 LDL Cholesterol 122 mg/dL 39 Surgical 04/23/2014 [facility] S RUN DATE: 40 Pathology [phone] 04/24/ <SEE NOTE> Urine DIP 04/15/2014 In House Lab Specific 1.020 1.01-1 [phone] - [place] .02 Urine pH 6 5-6 Leukocytes trace Neg Urine Nitrites neg Neg Total Protein, Urine neg Neg Urine Glucose norm Norm Urine Ketones neg Neg Urobilinogen norm Norm Urine Bilirubin neg Neg Urine Blood trace Neg Urine Culture And 04/15/2014 [facility] Urine Culture (SEE 41 Sensitivities [phone] NOTE) Laboratory test 01/06/2014 [facility] D Dimer < 200 Less 42 finding [phone] Quantitative ng/mL Than 230 CBC Auto Diff 01/06/2014 [facility] White Blood 11.5 High 4.8-10. [phone] Count 10^3/uL 8 Red Blood Count 4.65 10^6/uL 4.0-5.4 Hemoglobin 15.1 g/dL 12.0-16.0 Hematocrit 44 % 35-47 Mean Corpuscular Volume 95 fL 80-97 Mean Corpuscular Hemoglobin 33 pg High 27-31 Mean Corpuscular HGB Conc 34 g/dL 31-36 Red Cell Distribution Width 13 % 10.5-15 Platelet Count 219 10^3/uL 150-450 Mean Platelet Volume 7 um3 Low 7.4-10.4 Abs Neutrophils 9.5 10^3/uL High 1.5-7.7 Abs Lymphocytes 1.2 10^3/uL 1.0-4.8 Abs Monocytes 0.5 10^3/uL 0-0.8 Abs Eosinophils 0.3 10^3/uL 0-0.6 Abs Basophils 0 10^3/uL 0-0.2 Abs Nucleated RBC 0 10^3/uL Granulocyte % 82.6 % 38-83 Lymphocyte % 10.8 % Low 25-47 Monocyte % 4.1 % 1-9 Eosinophil % 2.2 % 0-6 Basophil % 0.3 % 0-2 Nucleated Red Blood Cells % 0 Comp Metabolic Panel 01/06/2014 [facility] Sodium 137 mmol/L 133-145 [phone] Potassium 3.5 mmol/L Low 3.7-5.6 Chloride 100 mmol/L Low 101-111 Co2 Carbon Dioxide 28 mmol/L 22-32 Anion Gap 9 mmol/L 2-11 Glucose 84 mg/dL 70-100 Blood Urea Nitrogen 11 mg/dL 6-24 Creatinine 0.77 mg/dL 0.51-0.95 BUN/Creatinine Ratio 14.3 8-20 Calcium 9.5 mg/dL 8.6-10.3 Total Protein 7.1 g/dL 6.4-8.9 Albumin 4.7 g/dL 3.2-5.2 Globulin 2.4 g/dL 2-4 Albumin/Globulin Ratio 2.0 1-3 Total Bilirubin 0.60 mg/dL 0.2-1.0 Alkaline Phosphatase 101 U/L 34-104 Alt 15 U/L 7-52 Ast 19 U/L 13-39 Egfr Non- 75.0 >60 Egfr 96.5 >60 43 Inr/Protime 01/06/2014 [facility] Inr 0.91 0.85- 1.06 [phone] Laboratory test 01/06/2014 [facility] Activated 30.8 24.0-36.1 finding [phone] Partial seconds Thrombo Time Laboratory test 12/13/2013 In House Lab Strep Screen neg Neg finding ([phone])- - Laboratory test 03/04/2013 [facility] Cytology RUN DATE: 44 finding [phone] 03/05/ <SEE NOTE> HPV Dna High Risk TNP Negative 45 Lipid Profile 02/18/2013 [facility] Triglycerides 79 mg/dL 40-200 (Trig/Chol/HDL) [phone] Cholesterol 199 mg/dL Less than 200 HDL Cholesterol 81 mg/dL High 40-60 46 Cholesterol/HDL Ratio 2.5 Average 1-4.44 LDL Cholesterol 102.2 High Less Than 100 47 CBC Auto Diff 02/18/2013 [facility] White Blood 7.4 10^3/uL 4.8-10.8 [phone] Count Red Blood Count 4.61 10^6/uL 4.0-5.4 Hemoglobin 15.1 g/dL 12.0-16.0 Hematocrit 45 % 35-47 Mean Corpuscular Volume 97 fL 80-97 Mean Corpuscular Hemoglobin 33 pg High 27-31 Mean Corpuscular HGB Conc 34 g/dL 31-36 Red Cell Distribution Width 13 % 10.5-15 Platelet Count 211 10^3/uL 150-450 Mean Platelet Volume 8 um3 7.4-10.4 Abs Neutrophils 5.6 10^3/uL 1.5-7.7 Abs Lymphocytes 1.1 10^3/uL 1.0-4.8 Abs Monocytes 0.4 10^3/uL 0-0.8 Abs Eosinophils 0.3 10^3/uL 0-0.6 Abs Basophils 0 10^3/uL 0-0.2 Abs Nucleated RBC 0.02 10^3/uL Granulocyte % 75.6 % 38-83 Lymphocyte % 14.2 % Low 25-47 Monocyte % 5.8 % 1-9 Eosinophil % 4.0 % 0-6 Basophil % 0.4 % 0-2 Nucleated Red Blood Cells % 0.2 Liver Function 02/18/2013 [facility] Total Protein 7.3 g/dL 6.2-8.1 Panel [phone] Albumin 4.3 g/dL 3.2-5.2 Globulin 3.0 g/dL 2-4 Albumin/Globulin Ratio 1.4 1-3 Total Bilirubin 0.9 mg/dL 0.4-1.5 Direct Bilirubin 0.1 mg/dL 0.1-0.5 Indirect Bilirubin 0.8 mg/dL 0.3-1.0 Alkaline Phosphatase 83 U/L 30-110 Alt 20 U/L 14-54 Ast 22 U/L 12-42 Vitamin D, 25 02/18/2013 [facility] 25-Hydroxy Vitamin <4.0 ng/mL Hydroxy [phone] D2 25-Hydroxy Vitamin D3 30 ng/mL 25-Hydroxy Vitamin D Total 30 ng/mL 48 Miscellaneous Test 02/18/2013 [facility] Test Name LDL PARTICLE [phone] Result 879 nmol/L Reference Range <1300 49 Basic Metabolic 02/18/2013 [facility] Sodium 139 mmol /L 133-145 Panel [phone] Potassium 3.7 mmol/L 3.5-5.0 Chloride 103 mmol/L 101-111 Co2 Carbon Dioxide 28.0 mmol/L 22-32 Anion Gap 8.0 mmol/L 2-11 Glucose 100 mg/dL 70-100 Blood Urea Nitrogen 8 mg/dL 6-24 Creatinine 0.80 mg/dL 0.50-1.40 BUN/Creatinine Ratio 10.0 8-20 Calcium 9.2 mg/dL 8.1-9.9 Egfr Non- 71.8 >60 Egfr 92.3 >60 50 CBC Auto Diff 09/05/2011 [facility] White Blood 4.9 CUMM 4.8-10.8 [phone] Count Red Cell Count 4.64 CUMM 4.2-5.4 Hemoglobin 15.4 g/dL 12.0-16.0 Hematocrit 44 % 35-47 Mean Corpuscular Volume 96 um3 79-97 Mean Corpuscular Hemoglob 33 pg High 27-31 Mean Corpuscular HGB Cone 35 g/dL 32-36 Redcell Distribution WDTH 13 % 10.5-15 Platelet Count 229 CUMM 150-450 Mean Platelet Volume 8.3 um3 7.4-10.4 Gran % 66.2 % 38-83 Lymph % 20.6 % Low 25-47 Mononuclear % 8.7 % 1-9 Eosinophil % 4.1 % 0-6 Basophil % 0.4 % 0-2 Abs Lymphs 1.0 1.0-4.8 Abs Mononuclear 0.4 0-0.8 Absolute Neutrophil Count 3.3 1.5-7.7 Abs Eosinophils 0.2 0-0.6 Abs Basophils 0 0-0.2 Comp Metabolic Panel 09/05/2011 [facility] Sodium 136 mmol/L 135-145 [phone] Potassium 4.6 mmol/L 3.5-5.0 Chloride 104 mmol/L 101-111 Co2 (Carbon Dioxide) 29.0 mmol/L 22-32 Anion Gap 3.0 mmol/L 2-11 51 Glucose 89 mg/dL 70-100 BUN 8 mg/dL 6-24 Creatinine 0.7 mg/dL 0.50-1.40 One Over Creatinine 1.42 BUN/Creatinine Ratio 11.4 8-20 Calcium 8.9 mg/dL 8.1-9.9 Total Protein 6.7 GM/DL 6.2-8.1 Albumin 4.2 GM/DL 3.2-5.2 Globulin 2.5 GM/DL 2-4 Albumin/Globulin Ratio 1.7 1-3 Bilirubin Total 0.8 mg/dL 0.4-1.5 52 Alkaline Phosphatase 98 U/L 30-110 Alt (SGPT) 22 U/L 14-54 Ast (Sgot) 27 U/L 12-42 eGFR Non- 84.2 > 60 eGFR 108.3 > 60 53 Lipid Profile 09/05/2011 [facility] Triglyceride 50 mg/dL 40-200 (Trig/Chol/HDL) [phone] Cholesterol 195 mg/dL Less Than 200 54 High Density Lipoprotein 80 mg/dL High 40-60 55 Cholesterol/HDL Ratio 2.44 AVERAGE 1-4.44 Low Density Lipoprotein 105 mg/dL High Less Than 100 56 Laboratory test 09/05/2011 [facility] Vitamin D, 1,25 95 pg/mL 18-78 57 finding [phone] Dihydroxy Urine DIP 09/05/2011 In House Lab Leukocytes neg Neg (607)- - Urine Nitrites neg Neg Urine pH 8 High 5-6 Total Protein, Urine neg Neg Urine Glucose norm Norm Urine Ketones neg Neg Urobilinogen norm Norm Urine Bilirubin neg Neg Urine Blood neg Neg Lipid Profile 01/18/2011 [facility] Triglyceride 45 mg/dL 40-200 (Trig/Chol/HDL) [phone] Cholesterol 186 mg/dL Less Than 200 58 High Density Lipoprotein 81 mg/dL High 40-60 59 Cholesterol/HDL Ratio 2.30 AVERAGE 1-4.44 Low Density Lipoprotein 96 mg/dL Less Than 100 60 Liver Function 01/18/2011 [facility] Total Protein 6.5 GM/DL 6.2-8.1 Panel [phone] Albumin 4.2 GM/DL 3.2-5.2 Globulin 2.3 GM/DL 2-4 Albumin/Globulin Ratio 1.8 1-3 Bilirubin Total 0.8 mg/dL 0.4-1.5 61 Bilirubin Direct 0.1 mg/dL 0.1-0.5 Indirect Bilirubin 0.7 mg/dL 0.3-1.0 62 Alkaline Phosphatase 97 U/L 30-110 Alt (SGPT) 32 U/L 14-54 Ast (Sgot) 28 U/L 12-42 Laboratory test 06/04/2010 [facility] BUN 14 mg/dL 6-24 finding [phone] Creatinine 06/04/2010 [facility] Creatinine 0.70 mg/ dL 0.50-1.40 [phone] One Over Creatinine 1.40 eGFR Non- 84.5 > 60 eGFR 108.7 > 60 63 Urine DIP 03/22/2010 In House Lab Leukocytes NEG Neg (607)- - Urine Nitrites NEG Neg Urine pH 5 5-6 Total Protein, Urine NEG Neg Urine Glucose NORM Norm Urine Ketones NEG Neg Urobilinogen NORM Norm Urine Bilirubin NEG Neg Urine Blood 50 High Neg Specific [place] N/A Low 1.01-1.02 Laboratory test 03/22/2010 [facility] Cytology ------ 64 finding [phone] <SEE NOTE> Statin 02/19/2010 [facility] Ast (Sgot) 31 U/L 12- 4 [phone] 2 Alt (SGPT) 36 U/L 14-54 Lipid Profile 02/19/2010 [facility] Triglyceride 65 mg/dL 40-200 (Trig/Chol/HDL) [phone] Cholesterol 151 mg/dL Less Than 200 65 High Density Lipoprotein 72 mg/dL High 40-60 66 Cholesterol/HDL Ratio 2.10 AVERAGE 1-4.44 Low Density Lipoprotein 66 mg/dL Less Than 100 67 Vitamin D, 25 02/19/2010 [facility] 25-Hydroxy Vitamin <4.0 ng/mL () Hydroxy [phone] D2 25-Hydroxy Vitamin D3 32 ng/mL () 25-Hydroxy Vitamin D Total 32 ng/mL (25-80) 68 Laboratory test 12/22/2009 [facility] Troponin-I (TnI ) 0 NG/ML 69 finding [phone] D Dimer Quantitative < 200 Less Than 230 Comp Metabolic Panel 12/22/2009 [facility] Sodium 137 mmol/L 135-145 [phone] Potassium 3.6 mmol/L 3.5-5.0 Chloride 105 mmol/L 101-111 Co2 (Carbon Dioxide) 26.0 mmol/L 22-32 Anion Gap 6.0 mmol/L 2-11 70 Glucose 96 mg/dL 70-100 71 BUN 11 mg/dL 6-24 Creatinine 0.63 mg/dL 0.50-1.40 One Over Creatinine 1.50 BUN/Creatinine Ratio 17.5 8-20 Calcium 9.1 mg/dL 8.1-9.9 Total Protein 7.0 GM/DL 6.2-8.1 Albumin 4.0 GM/DL 3.2-5.2 Globulin 3.0 GM/DL 2-4 Albumin/Globulin Ratio 1.3 1-3 Bilirubin Total 0.5 mg/dL 0.4-1.5 72 Alkaline Phosphatase 72 U/L 30-110 Alt (SGPT) 22 U/L 14-54 Ast (Sgot) 25 U/L 12-42 eGFR Non- 101.8 > 60 eGFR 123.1 > 60 73 Laboratory test 12/22/2009 [facility] PTT (Aptt) 29.5 25.15-38.53 finding [phone] CKMB 12/22/2009 [facility] CKMB In 2.4 NG/ML 0.3- 4.0 [phone] NG/ML CK For CKMB 90 U/L 0-170 % CKMB 3 %MB 0-9 74 CBC With 12/22/2009 [facility] White Blood 7.2 CUMM 4.8-10.8 Electronic Diff [phone] Count Red Cell Count 4.63 CUMM 4.2-5.4 Hemoglobin 15.5 g/dL 12.0-16.0 Hematocrit 44 % 35-47 Mean Corpuscular Volume 96 um3 79-97 Mean Corpuscular Hemoglob 34 pg High 27-31 Mean Corpuscular HGB Cone 35 g/dL 32-36 Redcell Distribution WDTH 12 % 10.5-15 Platelet Count 226 CUMM 150-450 Mean Platelet Volume 6.4 um3 Low 7.4-10.4 Gran % 73.6 % 38-83 Lymph % 17.0 % Low 25-47 Mononuclear % 6.4 % 1-9 Eosinophil % 2.6 % 0-6 Basophil % 0.4 % 0-2 Abs Lymphs 1.2 1.0-4.8 Abs Mononuclear 0.5 0-0.8 Absolute Neutrophil Count 5.3 1.5-7.7 Abs Eosinophils 0.2 0-0.6 Abs Basophils 0 0-0.2 75 PT W/Inr 12/22/2009 [facility] Inr 0.99 0.82-1.17 76 [phone] Protime 11.7 SEC 10.2-14.8 77 Lipid Profile 08/24/2009 [facility] Triglyceride 65 mg/dL 40-200 (Trig/Chol/HDL) [phone] Cholesterol 200 mg/dL Less Than 200 78 High Density Lipoprotein 65 mg/dL High 40-60 79 Cholesterol/HDL Ratio 3.08 AVERAGE 1-4.44 Low Density Lipoprotein 122 mg/dL High Less Than 100 80 Comp Metabolic Panel 08/24/2009 [facility] Sodium 139 mmol/L 135-145 [phone] Potassium 4.5 mmol/L 3.5-5.0 Chloride 106 mmol/L 101-111 Co2 (Carbon Dioxide) 26.0 mmol/L 22-32 Anion Gap 7.0 mmol/L 2-11 81 Glucose 97 mg/dL 70-100 82 BUN 12 mg/dL 6-24 Creatinine 0.90 mg/dL 0.50-1.40 One Over Creatinine 1.10 BUN/Creatinine Ratio 13.3 8-20 Calcium 8.8 mg/dL 8.1-9.9 83 Total Protein 6.6 GM/DL 6.2-8.1 Albumin 3.8 GM/DL 3.2-5.2 Globulin 2.8 GM/DL 2-4 Albumin/Globulin Ratio 1.4 1-3 Bilirubin Total 0.8 mg/dL 0.4-1.5 84 Alkaline Phosphatase 72 U/L 30-110 Alt (SGPT) 18 U/L 14-54 Ast (Sgot) 22 U/L 12-42 eGFR Non- 67.4 > 60 eGFR 81.6 > 60 85 Laboratory test 11/18/2008 [facility] Cytology ------ 86 finding [phone] <SEE NOTE> Urine DIP 11/18/2008 In House Lab Leukocytes NEG Neg (607)- - Urine Nitrites NEG Neg Urine pH 5 5-6 Total Protein, Urine NL Neg Urine Glucose NL Norm Urine Ketones NL Neg Urobilinogen NL Norm Urine Bilirubin NL Neg Urine Blood NL Neg Specific [place] N/A Low 1.01-1.02 Lipid Profile 11/18/2008 [facility] Triglyceride 84 mg/dL 40-200 (Trig/Chol/HDL) [phone] Cholesterol 205 mg/dL High Less Than 200 87 High Density Lipoprotein 67 mg/dL High 40-60 88 Cholesterol/HDL Ratio 3.06 AVERAGE 1-4.44 Low Density Lipoprotein 121 mg/dL High Less Than 100 89 Comp Metabolic Panel 11/18/2008 [facility] Sodium 140 mmol/L 135-145 [phone] Potassium 4.4 mmol/L 3.5-5.0 Chloride 106 mmol/L 101-111 Co2 (Carbon Dioxide) 28.0 mmol/L 22-32 Anion Gap 6.0 mmol/L 2-11 90 Glucose 82 mg/dL 70-100 91 BUN 9 mg/dL 6-24 Creatinine 0.70 mg/dL 0.50-1.40 One Over Creatinine 1.40 BUN/Creatinine Ratio 12.9 8-20 Calcium 8.6 mg/dL 8.1-9.9 92 Total Protein 6.4 GM/DL 6.2-8.1 Albumin 3.8 GM/DL 3.2-5.2 Globulin 2.6 GM/DL 2-4 Albumin/Globulin Ratio 1.5 1-3 Bilirubin Total 0.8 mg/dL 0.4-1.5 93 Alkaline Phosphatase 71 U/L 30-110 Alt (SGPT) 18 U/L 14-54 Ast (Sgot) 19 U/L 12-42 eGFR Non- 90.4 > 60 eGFR 109.4 > 60 94 Lipid Profile 02/13/2008 [facility] Triglyceride 73 mg/dL 40-200 (Trig/Chol/HDL) [phone] Cholesterol 194 mg/dL Less Than 200 95 High Density Lipoprotein 67 mg/dL High 40-60 96 Cholesterol/HDL Ratio 2.90 AVERAGE 1-4.44 Low Density Lipoprotein 112 mg/dL High Less Than 100 97 CBC With Manual 02/13/2008 [facility] White Blood 6.1 CUMM 4.8-10.8 Diff [phone] Count Red Cell Count 4.33 CUMM 4.2-5.4 Hemoglobin 14.3 g/dL 12.0-16.0 Hematocrit 42 % 35-47 Mean Corpuscular Volume 96 um3 79-97 Mean Corpuscular Hemoglob 33 pg High 27-31 Mean Corpuscular HGB Cone 34 g/dL 32-36 Redcell Distribution WDTH 13 % 10.5-15 Platelet Count 235 CUMM 150-450 Mean Platelet Volume 7.3 um3 Low 7.4-10.4 Polysegmented Neutrophil 85 % High 38-83 Lymphocyte 11 % Low 25-47 Monocyte 2 % 0-13 Eosenophil 1 % 0-6 Atypical Lymph 1 % 0-6 Absolute Neutrophil Count 5.1 Anisocytosis SLIGHT Polychromasia SLIGHT Toxic Granulation MODERATE Comp Metabolic Panel 02/13/2008 [facility] Sodium 137 mmol/L 135-145 [phone] Potassium 4.2 mmol/L 3.5-5.0 Chloride 106 mmol/L 101-111 Co2 (Carbon Dioxide) 26.0 mmol/L 22-32 Anion Gap 5.0 mmol/L 2-11 98 Glucose 98 mg/dL 70-100 99 BUN 9 mg/dL 6-24 Creatinine 0.70 mg/dL 0.50-1.40 One Over Creatinine 1.40 BUN/Creatinine Ratio 12.9 8-20 Calcium 8.7 mg/dL 8.1-9.9 100 Total Protein 6.1 GM/DL Low 6.2-8.1 Albumin 3.7 GM/DL 3.2-5.2 Globulin 2.4 GM/DL 2-4 Albumin/Globulin Ratio 1.5 1-3 Bilirubin Total 0.7 mg/dL 0.4-1.5 Alkaline Phosphatase 70 U/L 30-110 Alt (SGPT) 20 U/L 14-54 Ast (Sgot) 22 U/L 12-42 Vaginitis Dna 02/28/2007 [facility] Screen Trichomonas NEGATIVE Probe Screen [phone] Vaginalis Dna Screen Gardnerella Vaginalis Dna NEGATIVE Screen Martina Species Dna NEGATIVE Laboratory 02/28/2007 [facility] Cytology ----- 101 test finding [phone] <SEE NOTE> Laboratory 10/06/2006 [facility] CA 125 9.4 U/ML 2.0- 102 test finding [phone] (Ovarian 35.0 Cancer Ag) Liver Function 04/14/2006 [facility] Albumin/Glob 1.4 1-3 Panel [phone] ulin Ratio Albumin 3.8 GM/DL 3.6-5.4 Alkaline Phosphatase 95 U/L 30-110 Alt (SGPT) 20 U/L 14-54 Ast (Sgot) 22 U/L 12-42 Bilirubin Direct < 0.1 mg/dL Low 0.1-0.5 Globulin 2.8 GM/DL 2-4 Bilirubin Total 0.6 mg/dL 0.4-1.5 Total Protein 6.6 GM/DL 6.2-8.1 Lipid Profile 04/14/2006 [facility] Cholesterol/HDL 3.50 1-4.44 (Trig/Chol/HDL) [phone] Ratio AVERAGE Cholesterol 182 mg/dL Less Than 200 103 Triglyceride 70 mg/dL 40-200 High Density Lipoprotein 52 mg/dL 40-60 Low Density Lipoprotein 116 mg/dL High Less Than 100 104 Lipid Profile 01/06/2006 [facility] Cholesterol 201 mg/dL High Less 105 (Trig/Chol/HDL) [phone] Than 200 Triglyceride 58 mg/dL 40-200 High Density Lipoprotein 64 mg/dL High 40-60 106 Low Density Lipoprotein 125 mg/dL High Less Than 100 107 Cholesterol/HDL Ratio 3.14 AVERAGE 1-4.44 Laboratory test 01/06/2006 [facility] Glucose 87 mg/ dL 70-105 finding [phone] TSH 1.06 MIU/ML 0.34-5.60 Barbara (Antinuclear 09/14/2005 [facility] Antinuclear AB NEGATIVE Negative Antibodies) [phone] Laboratory test 09/14/2005 [facility] Erythrocyte Sed 15 MM/HR 0-30 finding [phone] Rate Rheumatoid Factor < 20.0 IU/mL Less Than 20 CBC With 09/14/2005 [facility] White Blood 8.5 CUMM 4.8-10.8 Electronic Diff [phone] Count Abs Basophils 0 0-0.2 Abs Eosinophils 0.3 0-0.6 Absolute Neutrophil Count 6.3 1.5-7.7 Abs Lymphs 1.2 1.0-4.8 Abs Mononuclear 0.6 0-0.8 Basophil % 0.4 % 0-2 Hematocrit 44 % 35-47 Definitive Flag 1 108 Hemoglobin 14.9 g/dL 12.0-16.0 Eosinophil % 3.6 % 0-6 Gran % 74.0 % 38-83 Lymph % 14.7 % Low 20-45 Mean Corpuscular HGB Cone 34 g/dL 32-36 Mean Corpuscular Hemoglob 33 pg High 27-31 Mean Corpuscular Volume 97 um3 79-97 Mean Platelet Volume 7.7 um3 7.4-10.4 Mononuclear % 7.3 % 1-9 Platelet Count 273 CUMM 150-450 Red Cell Count 4.51 CUMM 4.2-5.4 Redcell Distribution WDTH 13 % 10.5-15 Comp Metabolic 03/10/2005 [facility] One Over Creatinine 1.42 109 Panel [phone] Anion Gap 10.0 mmol/L 2-11 110 Albumin/Globulin Ratio 1.4 1-3 Albumin 4.0 GM/DL 3.6-5.4 Alkaline Phosphatase 67 U/L 30-110 Alt (SGPT) 22 U/L 14-54 Ast (Sgot) 26 U/L 12-42 BUN 10 mg/dL 6-24 Calcium 9.4 mg/dL 8.7-10.2 Chloride 103 mmol/L 101-111 Co2 (Carbon Dioxide) 26.0 mmol/L 22-32 Globulin 2.9 GM/DL 2-4 Glucose 81 mg/dL 70-105 Potassium 4.5 mmol/L 3.5-5.0 Sodium 139 mmol/L 135-145 Bilirubin Total 0.7 mg/dL 0.4-1.5 Total Protein 6.9 GM/DL 6.2-8.1 BUN/Creatinine Ratio 14.3 8-20 Creatinine 0.7 mg/dL 0.5-1.4 Laboratory test 03/10/2005 [facility] Amylase 87 U/L 30-125 finding [phone] Lipase 35 U/L 22-51 CBC With 03/10/2005 [facility] White Blood 10.8 CUMM 4.8-10.8 Electronic Diff [phone] Count Abs Basophils 0 0-0.2 Abs Eosinophils 0.3 0-0.6 Absolute Neutrophil Count 8.4 High 1.5-7.7 Abs Lymphs 1.4 1.0-4.8 Abs Mononuclear 0.6 0-0.8 Basophil % 0.3 % 0-2 Hematocrit 47 % 35-47 Definitive Flag 1 111 Hemoglobin 16.3 g/dL High 12.0-16.0 Eosinophil % 2.8 % 0-6 Gran % 78.2 % 38-83 Lymph % 12.9 % Low 20-45 Mean Corpuscular HGB Cone 35 g/dL 32-36 Mean Corpuscular Hemoglob 33 pg High 27-31 Mean Corpuscular Volume 96 um3 79-97 Mean Platelet Volume 8.3 um3 7.4-10.4 Mononuclear % 5.8 % 1-9 Platelet Count 362 CUMM 150-450 Red Cell Count 4.91 CUMM 4.2-5.4 Redcell Distribution WDTH 13 % 10.5-15 Laboratory test 03/10/2005 [facility] Erythrocyte Sed 21 MM/HR 0-30 finding [phone] Rate Liver Function 03/10/2005 [facility] Bilirubin Direct 0.2 mg/dL 0.1-0.5 Panel [phone] Indirect Bilirubin 0.5 mg/dL 0.1-0.75 Laboratory test finding 07/19/2004 [facility] [place] Pathology Report NECK MASS (607)- - Urine DIP 06/25/2004 [facility] House Lab Leukocytes NEG Neg (607)- - Urine Nitrites NEG Neg Urine pH 5 5-6 Total Protein, Urine NL Neg Urine Glucose NL Norm Urine Ketones NL Neg Urobolinogen NL Norm Urine Bilirubin NL Neg Urine Blood 250 High Neg Specific [place] N/A Low 1.01-1.02 Anti Gliadin 06/25/2004 [facility] Gliadin Iga 1.4 U/ ML 0.0-5.0 112 Igg And Iga AB [phone] Antibodies Gliadin Igg Antibodies 5.7 U/ML 0.0-10.0 CBC With 06/25/2004 [facility] White Blood 6.6 CUMM 4.8-10.8 Electronic Diff [phone] Count Abs Basophils 0 0-0.2 Abs Eosinophils 0.2 0-0.6 Abs Grans 4.6 1.5-7.7 Abs Lymphs 1.3 1.0-4.8 Abs Mononuclear 0.5 0-0.8 Basophil % 0.4 % 0-2 Hematocrit 43 % 35-47 Hemoglobin 15.2 g/dL 12.0-16.0 Eosinophil % 2.4 % 0-6 Gran % 69.9 % 38-83 Lymph % 20.1 % 20-45 Mean Corpuscular HGB Cone 35 g/dL 32-36 Mean Corpuscular Hemoglob 33 pg High 27-31 Mean Corpuscular Volume 94 um3 79-97 Mean Platelet Volume 7.7 um3 7.4-10.4 Mononuclear % 7.2 % 1-9 Platelet Count 306 CUMM 150-450 Red Cell Count 4.63 CUMM 4.2-5.4 Redcell Distribution WDTH 12 % 10.5-15 Comp Metabolic 06/25/2004 [facility] Anion Gap 9.0 mmol/L 2-11 113 Panel [phone] Albumin/Globulin Ratio 1.2 1-3 Albumin 3.6 GM/DL 3.6-5.4 Alkaline Phosphatase 43 U/L 30-110 Alt (SGPT) 18 U/L 14-54 Ast (Sgot) 20 U/L 12-42 BUN 9 mg/dL 6-24 Calcium 8.7 mg/dL 8.7-10.2 Chloride 105 mmol/L 101-111 Co2 (Carbon Dioxide) 24.0 mmol/L 22-32 Creatinine 0.6 mg/dL 0.5-1.4 Globulin 2.9 GM/DL 2-4 Glucose 72 mg/dL 70-105 Potassium 3.8 mmol/L 3.5-5.0 Sodium 138 mmol/L 135-145 Bilirubin Total 0.5 mg/dL 0.4-1.5 Total Protein 6.5 GM/DL 6.2-8.1 BUN/Creatinine Ratio 15.0 8-20 Laboratory test 06/25/2004 [facility] Amylase 88 U/L 30-125 finding [phone] Urine DIP 06/19/2004 In House Lab Leukocytes 2+ High Neg (607)- - Urine Nitrites POSTITIVEW Neg Urine pH 5 5-6 Total Protein, Urine NEG Neg Urine Glucose NORM Norm Urine Ketones NEG Neg Urobolinogen NORM Norm Urine Bilirubin NEG Neg Urine Blood 250 High Neg Specific [place] NA Low 1.01-1.02 Urine DIP 03/01/2004 In House Lab Leukocytes NEG Neg (607)- - Urine Nitrites NEG Neg Urine pH 5 5-6 Total Protein, Urine NEG Neg Urine Glucose NORM Norm Urine Ketones NEG Neg Urobolinogen NORM Norm Urine Bilirubin NEG Neg Urine Blood NEG Neg Specific [place] NA Low 1.01-1.02 Urine DIP 02/27/2004 In House Lab Leukocytes 2+ High Neg (607)- - Urine Nitrites POSITIVE Neg Urine pH 5 5-6 Total Protein, Urine NL Neg Urine Glucose NL Norm Urine Ketones NL Neg Urobolinogen NL Norm Urine Bilirubin NL Neg Urine Blood 250 High Neg Specific [place] N/A Low 1.01-1.02 Lipid Profile 07/15/2002 [facility] Cholesterol/HDL 2.86 1-4.44 (Trig/Chol/HDL) [phone] Ratio AVERAGE Cholesterol 143 mg/dL Less Than 200 114 Triglyceride 66 mg/dL 40-200 High Density Lipoprotein 50 mg/dL 40-60 Low Density Lipoprotein 80 mg/dL Less Than 100 115 Urine DIP 07/08/2002 In House Lab Leukocytes NEG Neg (607)- - Urine Nitrites NEG Neg Urine pH 5 5-6 Total Protein, Urine NEG Neg Urine Glucose NORM Norm Urine Ketones NEG Neg Urobolinogen NORM Norm Urine Bilirubin NEG Neg Urine Blood NEG Neg Specific [place] AN Low 1.01-1.02 Laboratory test finding 05/12/1997 [facility] [place] Pathology Report DUODENUM BIOPSY (607)- - Laboratory test finding 01/23/1997 [facility] [place]- Pathology Report DUODENAL BIOPSY (607)- - 1 [facility] Severe Sepsis and Septic Shock Management Bundle Measure requires all lactic acids initially measuring >2.0 mmol/L be repeated. 2 Because ethnic data is not always readily available, this report includes an eGFR for both -Americans and non- Americans. The National Kidney Disease Education Program (NKDEP) does not endorse the use of the MDRD equation for patients that are not between the ages of 18 and 70, are , have extremes of body size, muscle mass, or nutritional status, or are non- or non-. According to the National Kidney Foundation, irrespective of diagnosis, the stage of the disease is based on the level of kidney function: Stage Description GFR(mL/min/1.73 m(2)) 1 Kidney damage with normal or decreased GFR 90 2 Kidney damage with mild decrease in GFR 60-89 3 Moderate decrease in GFR 30-59 4 Severe decrease in GFR 15-29 5 Kidney failure <15 (or dialysis) 3 >100 to <200 pg/mL: likely compensated congestive heart failure (CHF) 200 to 400 pg/mL: likely moderate CHF >400 pg/mL: likely moderate to severe CHF 4 Critical Result LACT:2.1 Called to [id number] at: 14:43:28 by:[id number] Read back by:[id number] SUJATHA Severe Sepsis and Septic Shock Management Bundle Measure requires all lactic acids initially measuring >2.0 mmol/L be repeated. 5 Please note: The following may produce a false positive D Dimer test: - Rheumatoid factor greater than 60 IU/ml - Plasma hemoglobin greater than 0.05 gm/dl - Bilirubin greater than 50 mg/dl - Lipids greater than 1000 mg/dl - FDP greater than 20 ug/ml 6 Because ethnic data is not always readily available, this report includes an eGFR for both -Americans and non- Americans. The National Kidney Disease Education Program (NKDEP) does not endorse the use of the MDRD equation for patients that are not between the ages of 18 and 70, are , have extremes of body size, muscle mass, or nutritional status, or are non- or non-. According to the National Kidney Foundation, irrespective of diagnosis, the stage of the disease is based on the level of kidney function: Stage Description GFR(mL/min/1.73 m(2)) 1 Kidney damage with normal or decreased GFR 90 2 Kidney damage with mild decrease in GFR 60-89 3 Moderate decrease in GFR 30-59 4 Severe decrease in GFR 15-29 5 Kidney failure <15 (or dialysis) 7 SEE RESULT BELOW Name: ROSEMARIE COWART I : [address]: Cindy Daley NP Acct: [id number] Unit: [id number] AGE: 72 Location: [facility] Re06/22/17 SEX: F Status: REG REF SPEC: [id number] ELVIS: 06/22/[address]: Cindy Daley NP REQ: [id number] RECD: 06/22/17 STATUS: SOUT _ ORDERED: TP IMAGE ANAL, HPV/Thin Prep, HPV 16/18 GENE COMMENTS: [id number] Negative for Intraepithelial lesion or Malignancy A. Vaginal Specimen Adequacy: Satisfactory of evaluation Patient Information: HPV: High risk HPV RNA testing regardless of pap results. HPV 16/18 Genotype Reflex Actual Specimen Date: 06/22/17 Date of Last Specimen: 03/04/13 ?: N Post Menopausal?: Y Hysterectomy?: N Date Time Test Result Flag (u) Normal Range 06/22/17 0929 @ HPV RNA RFLX GE Negative Negative @ @ The high-risk HPV types detected by the assay include: 16, @ 18, 31, 33, 35, 39, 45, 51, 52, 56, 58, 59, 66, and 68. Signed (signature on file) BOOKER Quiñonez (ASCP) 06/23 0500 This Pap test was evaluated with the assistance of the ThinPrep Test Imaging System. Due to cytologic findings at the clamp carrier operator microscope, comprehensive manual rescreening by a Air Hammer Stripper may be required. The Pap Smear is a screening test designed to aid in the detection of premalignant and malignant conditions of the uterine cervix. It is not a diagnostic procedure and should not be used as the sole means of detecting cervical cancer. Both false- positive and false- negative reports do occur. Depending on your risk status, a Pap smear should be obtained and evaluated every 1-3 years. END OF REPORT DEPARTMENT OF PATHOLOGY, [address] [place] [address] Nasir Hi M.D. Director [facility] # [id number] FASTING 9 Desirable: <150 Borderline High: 150-199 High: 200-499 Very High: >500 10 Desirable: <200 Borderline High: 200-239 High: >239 11 Low: <40 Desirable: 40-60 High: >60 12 Desirable: <100 Near Optimal: 100-129 Borderline High: 130-159 High: 160-189 Very High: >189 13 Because ethnic data is not always readily available, this report includes an eGFR for both -Americans and non- Americans. The National Kidney Disease Education Program (NKDEP) does not endorse the use of the MDRD equation for patients that are not between the ages of 18 and 70, are , have extremes of body size, muscle mass, or nutritional status, or are non- or non-. According to the National Kidney Foundation, irrespective of diagnosis, the stage of the disease is based on the level of kidney function: Stage Description GFR(mL/min/1.73 m(2)) 1 Kidney damage with normal or decreased GFR 90 2 Kidney damage with mild decrease in GFR 60-89 3 Moderate decrease in GFR 30-59 4 Severe decrease in GFR 15-29 5 Kidney failure <15 (or dialysis) 14 SEE RESULT BELOW Name: ROSEMARIE COWART I : [address]: Tu Marcelino MD Acct: [id number] Unit: [id number] AGE: 72 Location: [facility] Re06/14/17 SEX: F Status: REG REF SPEC: [id number] ELVIS: 06/14/17-[address] [facility] [address]: Tu Marcelino MD REQ: [id number] RECD: 06/14/17 STATUS: COMP _ SOURCE: URINE SPDESC: ORDERED: Urine Culture COMMENTS: [id number] Urine Source: Clean Catch Procedure Result Reported Site Urine Culture Final 06/17/17- 1214 ML Organism 1 ESCHERICHIA COLI Ninety [place] Count 1-10,000 (Few) CFU/ML Organism 2 GARDNERELLA VAGINALIS Ninety Six Count 25-50,000 (Moderate) CFU/ML Gardnerella vaginalis can play a role in extravaginal infections to include the urinary tract. Treatment of choice for local infections is metrondiazole. (Manual of Clinical Microbiology, p.508; [employer] [place] and Textbook of Diagnostic Microbiology, p. 836) 1. ESCHERICHIA COLI M.I.C. RX --------- ------ Ampicillin 4 S Cefazolin <=4 S Cefepime <=1 S Ceftriaxone <=1 S Ciprofloxacin <=0.25 S Gentamicin <=1 S Levofloxacin <=0.12 S Meropenem <=0.25 S Nitrofurantoin <=16 S Tetracycline <=1 S CONTINUED ON NEXT PAGE DEPARTMENT OF PATHOLOGY, [address] [place] [address] Nasir Hi M.D. Director [facility] # [id number] Patient: SHADYJORGE RAMJose Chris [id number] (Continued) Specimen: [id number] Collected: 06/14/17161 Received: 06/14/17 (Continued) Procedure Result Reported Site Urine Culture Final (continued) 06/17/17- 1214 1. ESCHERICHIA COLI (continued) M.I.C. RX --------- ------ Pipercillin/Tazobactam <=4 S Trimethoprim/Sulfamethoxazole <=20 S Amoxicillin/Clavulanic Acid 4 S Aztreonam <=1 S Contact the Microbiology Department for any additional antibiotic reporting. * ML - Main Lab . END OF REPORT DEPARTMENT OF PATHOLOGY, [address] [place] [address] Nasir Hi M.D. Director [facility] # [id number] 15 SEE RESULT BELOW Name: ROSEMARIE COWART I : [address]: Tu Marcelino MD Acct: [id number] Unit: [id number] AGE: 72 Location: [facility] Re04/07/17 SEX: F Status: REG REF SPEC: [id number] ELVIS: 04/07/[address]: Tu Marcelino MD REQ: [id number] RECD: 04/07/17 STATUS: COMP _ SOURCE: URINE SPDESC: ORDERED: Urine Culture COMMENTS: [id number] Urine Source: Random Procedure Result Reported Site Urine Culture Final 04/09/17- 09 ML Organism 1 ESCHERICHIA COLI [place] Count 50-75,000 (Many) CFU/ML 1. ESCHERICHIA COLI M.I.C. RX --------- ------ Ampicillin 8 S Cefazolin <=4 S Cefepime <=1 S Ceftriaxone <=1 S Ciprofloxacin <=0.25 S Gentamicin <=1 S Levofloxacin <=0.12 S Meropenem <=0.25 S Nitrofurantoin <=16 S Tetracycline <=1 S Pipercillin/Tazobactam <=4 S Trimethoprim/Sulfamethoxazole <=20 S Amoxicillin/Clavulanic Acid 4 S Aztreonam <=1 S Contact the Microbiology Department for any additional antibiotic reporting. * ML - MAIN LAB ([facility]) . END OF REPORT * ML=Testing performed at Main Lab DEPARTMENT OF PATHOLOGY, [address] [place] [address] Nasir Hi M.D. Director [facility] # [id number] 16 04/10/17 (MonApr 10) 03:47 PM TU MARCELINO Escherichia coli in large numbers, sensitive to Bactrim as prescribed. 17 SEE RESULT BELOW Name: ROSEMARIE COWART I : [address]: Tu Marcelino MD Acct: [id number] Unit: [id number] AGE: 71 Location: [facility] Re10/26/16 SEX: F Status: REG REF SPEC: [id number] ELVIS: 10/26/16-[address]: Tu Marcelino MD REQ: [id number] RECD: 10/27/16 STATUS: COMP _ SOURCE: URINE SPDESC: ORDERED: Urine Culture COMMENTS: [id number] Urine Source: Random Procedure Result Reported Site Urine Culture Final 10/28/16- 1245 ML No Growth (<1,000 CFU/mL) * ML - MAIN LAB ([facility]) . END OF REPORT * ML=Testing performed at Main Lab DEPARTMENT OF PATHOLOGY, [address] [place] [address] Nasir Hi M.D. Director [facility] # [id number] 18 Acute inflammation: >10.00 19 REFERENCE VALUE <6.0 Reference values are for non- subjects only; production of AFP elevates values in women. ADDITIONAL INFORMATION The testing method is an immunoenzymatic assay manufactured by [employer]. and performed on the [employer] DxI 800. Values obtained with different assay methods or kits may be different and cannot be used interchangeably. Test results cannot be interpreted as absolute evidence for the presence or absence of malignant disease. Alpha-Fetoprotein values are not interpretable in females for the investigation of malignant disease. Test Performed by: [facility] [place] [address] [employer]ry Go Round Operator: Shant Levin II, M.D., Ph.D. 20 ADDITIONAL INFORMATION This test was developed and its performance characteristics determined by [facility] in a manner consistent with CLIA requirements. This test has not been cleared or approved by the U.S. Food and Drug Administration. Test Performed by: [facility] [place] [address] [employer] Round Operator: Shant Levin II, M.D., Ph.D. 21 Negative for cANCA and pANCA patterns by immunofluorescence. ADDITIONAL INFORMATION This test was developed and its performance characteristics determined by [facility] in a manner consistent with CLIA requirements. This test has not been cleared or approved by the U.S. Food and Drug Administration. Test Performed by: [facility] [place] [address] [employer] Round Operator: Shant Levin II, M.D., Ph.D. 22 REFERENCE VALUE <0.1 (Negative) Test Performed by: [facility] [place] [address] [employer] Round Operator: Shant Levin II, M.D., Ph.D. 23 REFERENCE VALUE <=1.0 (Negative) Test Performed by: [place] [address] [employer] Operator: Shant Levin II, M.D., Ph.D. 24 Test Performed by: [place] [address] [employer] Operator: Shant Levin II, M.D., Ph.D. 25 Because ethnic data is not always readily available, this report includes an eGFR for both -Americans and non- Americans. The National Kidney Disease Education Program (NKDEP) does not endorse the use of the MDRD equation for patients that are not between the ages of 18 and 70, are , have extremes of body size, muscle mass, or nutritional status, or are non- or non-. According to the National Kidney Foundation, irrespective of diagnosis, the stage of the disease is based on the level of kidney function: Stage Description GFR(mL/min/1.73 m(2)) 1 Kidney damage with normal or decreased GFR 90 2 Kidney damage with mild decrease in GFR 60-89 3 Moderate decrease in GFR 30-59 4 Severe decrease in GFR 15-29 5 Kidney failure <15 (or dialysis) 26 Desirable <150 Borderline high 150-199 High 200-499 Very High >500 27 Desirable <200 Borderline high 200-239 High >239 28 Low <40 Desirable: 40-60 High: >60 29 Desirable: <100 mg/dL Near Optimal: 100-129 mg/dL Borderline High: 130-159 mg/dL High: 160-189 mg/dL Very High: >189 mg/dL 30 SEE RESULT BELOW Name: ROSEMARIE COWART I : [address]: Matthieu Giles III SLIP MIXER Acct: [id number] Unit: [id number] AGE: 70 Location: [facility] Re01/12/16 SEX: F Status: REG REF SPEC: [id number] ELVIS: 01/12/[address] [facility] [address]: Matthieu Giles III SLIP MIXER REQ: [id number] RECD: 01/12/16 STATUS: COMP _ SOURCE: URINE SPDESC: ORDERED: Urine Culture COMMENTS: [id number] Procedure Result Reported Site Urine Culture Final 01/14/16- 813 ML Organism 1 ESCHERICHIA COLI N[place] Count 75-100,000 (Many) CFU/ML 1. ESCHERICHIA COLI M.I.C. RX --------- ------ Ampicillin 8 S Cefazolin <=4 S Cefepime <=1 S Ceftriaxone <=1 S Ciprofloxacin <=0.25 S Gentamicin <=1 S Levofloxacin <=0.12 S Meropenem <=0.25 S Nitrofurantoin <=16 S Tetracycline <=1 S Pipercillin/Tazobactam <=4 S Trimethoprim/Sulfamethoxazole <=20 S Amoxicillin/Clavulanic Acid 4 S Aztreonam <=1 S Contact the Microbiology Department for any additional antibiotic reporting. * ML - MAIN LAB ([facility]) . END OF REPORT * ML=Testing performed at Main Lab DEPARTMENT OF PATHOLOGY, [address] [place] [address] Nasir Hi M.D. Director [facility] # [id number] 31 SEE RESULT BELOW Name: ROSEMARIE COWART I : [address]: Shirley Shelby NP Acct: [id number] Unit: [id number] AGE: 69 Location: [facility] Re09/03/14 SEX: F Status: REG REF SPEC: [id number] ELVIS: 09/03/14-[address]: Shirley Shelby NP REQ: [id number] RECD: 09/03/14 STATUS: COMP _ SOURCE: WOUND SPDESC: ORDERED: Culture Stain Specimen Description Abdominal Procedure Result Verified Site Wound/Misc Gram Stain Final 09/04/14- 0831 ML 2+ Neutrophils 1+ Epithelial Cells No Organisms Seen Wound/Misc Culture Final 09/05/14- 1243 ML No Growth Day 2 * ML - MAIN LAB ([facility]) . END OF REPORT * ML=Testing performed at Main Lab DEPARTMENT OF PATHOLOGY, [address] [place] [address] Nasir Hi M.D. Director [facility] # [id number] 32 SEE RESULT BELOW Name: ROSEMARIE COWART I : [address]: Shirley Shelby NP Acct: [id number] Unit: [id number] AGE: 69 Location: [facility] Re08/29/14 SEX: F Status: REG REF SPEC: [id number] ELVIS: 08/29/14-[address]: Shirley Shelby NP REQ: [id number] RECD: 08/29/14 STATUS: COMP _ SOURCE: WOUND SPDESC: ORDERED: Culture Stain Specimen Description abdominal wound Procedure Result Verified Site Wound/Misc Gram Stain Final 08/30/14- 0744 ML No Neutrophils Observed No Organisms Seen Wound/Misc Culture Final 08/31/14- 1040 ML No Growth Day 2 * ML - MAIN LAB ([facility]) . END OF REPORT * ML=Testing performed at Main Lab DEPARTMENT OF PATHOLOGY, [address] [place] [address] Nasir Hi M.D. Director [facility] # [id number] 33 Please note: Effective April 16, 2014, the reference value for this test has changed due to the validation and activation of a new reagent lot number. 34 Because ethnic data is not always readily available, this report includes an eGFR for both -Americans and non- Americans. The National Kidney Disease Education Program (NKDEP) does not endorse the use of the MDRD equation for patients that are not between the ages of 18 and 70, are , have extremes of body size, muscle mass, or nutritional status, or are non- or non-. According to the National Kidney Foundation, irrespective of diagnosis, the stage of the disease is based on the level of kidney function: Stage Description GFR(mL/min/1.73 m(2)) 1 Kidney damage with normal or decreased GFR 90 2 Kidney damage with mild decrease in GFR 60-89 3 Moderate decrease in GFR 30-59 4 Severe decrease in GFR 15-29 5 Kidney failure <15 (or dialysis) 35 RUN DATE: 04/24/14 [facility] LAB LIVE PAGE 1 RUN TIME: [address] [place] [address] Specimen Inquiry Name: EYADANANDROSEMARIE I : [address]: Carter Santiago MD Acct: [id number] Unit: [id number] AGE: 69 Location: ENDO Re04/23/14 SEX: F Status: REG REF SPEC: [id number] ELVIS: 04/23/14-[address] [facility] [address]: Carter Santiago MD REQ: [id number] RECD: 04/23/14 STATUS: PEDRO LUIS SIN DR: Shirley Shelby SLIP MIXER _ SOURCE: GAS ANTRUM SPDESC: ORDERED: Clotest Procedure Result Verified Site Clotest Final 04/24/14- 43 ML Clotest Negative END OF REPORT * ML=Testing performed at Main Lab DEPARTMENT OF PATHOLOGY, [facility] [employer] [place], [place] [address] Nasir Hi M.D. Director [facility] # [id number] Desirable <150 Borderline high 150-199 High 200-499 Very High >500 37 Desirable <200 Borderline high 200-239 High >239 38 Low <40 Desirable: 40-60 High: >60 39 Desirable <100 Near Optimal 100-129 Borderline high 130-159 High 160-189 Very High >189 40 RUN DATE: 04/24/14 [facility] LAB LIVE PAGE 1 RUN TIME: 1510 [facility] [employer] [place], [place] [address] Specimen Inquiry Name: ROSEMARIE COWART I : [address]: Carter Santiago MD Acct: [id number] Unit: [id number] AGE: 69 Location: ENDO Re04/23/14 SEX: F Status: REG REF SPEC: [id number] ELVIS: 04/23/14- SUBM DR: Carter Santiago MD REQ: [id number] RECD: 04/23/14-1359 STATUS: SISSY SIN DR: Shirley Shelby SLIP MIXER _ ORDERED: LEVEL IV/2 FINAL DIAGNOSIS 1. Colon, cecum, biopsy: -- Serrated adenomatous polyp. -- No high-grade dysplasia identified. 2. Colon, hepatic flexure, biopsy: -- Serrated adenomatous polyp. -- No high-grade dysplasia identified. CLINICAL HISTORY Gastroesophageal reflux disease; screening colonoscopy with family history of colon cancer POST-OPERATIVE DIAGNOSIS Esophagus - no erosions/Burch's; stomach - normal, no gastritis, ulcer; duodenum - normal bulb to third portion. Screening colonoscopy into terminal ileum, prep fair - 2 polyps removed. Normal EGD - non-erosive reflux disease. Colon polyps removed GROSS DESCRIPTION The specimens are received in formalin in 2 properly labeled containers with the patient's name and accession number. 1. Specimen 1 labeled "Cecal Polyp" consists of polypoid hodge soft tissue mass measuring 1.1 x 0.7 x 0.2 cm. Submitted entirely one cassette. 2. Specimen 2 labeled "Hepatic Flexure Polyp" consists of multiple hodge soft tissue fragments measuring 1.2 x 0.6 x 0.3 cm in aggregate. Submitted entirely in one cassette. CONTINUED ON NEXT PAGE * ML=Testing performed at Main Lab DEPARTMENT OF PATHOLOGY, [address] [place] [address] Nasir Hi M.D. Director [facility] # [id number] RUN DATE: 04/24/14 [facility] LAB LIVE PAGE 2 RUN TIME: 1509 [facility] [employer] [place], [place] [address] Specimen Inquiry Patient: ROSEMARIE COWART I [id number] (Continued) GROSS DESCRIPTION (Continued) Signed (signature on file) Nasir Hi MD 1509 END OF REPORT * ML=Testing performed at Main Lab DEPARTMENT OF PATHOLOGY, [facility] [employer] [place], [place] [address] Nasir Hi M.D. Director [facility] # [id number] RUN DATE: 04/17/14 [facility] LAB LIVE PAGE 1 RUN TIME: 844 [facility] [employer] [place], [place] [address] Specimen Inquiry Name: ROSEMARIE COWART I : [address]: Shirley Shelby SLIP MIXER Acct: [id number] Unit: [id number] AGE: 69 Location: [facility] Re04/15/14 SEX: F Status: REG REF SPEC: [id number] ELVIS: 04/15/14-[address]: Shirley Shelby SLIP MIXER REQ: [id number] RECD: 04/15/14 STATUS: COMP _ SOURCE: URINE SPDESC: ORDERED: Urine Culture QUERIES: Provider Requisition # [id number] Procedure Result Verified Site Urine Culture Final 04/17/14- 0844 ML Organism 1 ESCHERICHIA COLI [place] Count 10-25,000 (Moderate) CFU/ML 1. ESCHERICHIA COLI M.I.C. RX --------- ------ Ampicillin 8 S Cefazolin <=4 S Cefepime <=1 S Ceftriaxone <=1 S Ciprofloxacin <=0.25 S Gentamicin <=1 S Levofloxacin <=0.12 S Meropenem <=0.25 S Nitrofurantoin <=16 S Tetracycline <=1 S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 Palpitations 272.0 Hypercholesterolemia Pure Office Visit 02/28/2007 10:30a Main Office Yoly Khan 616.10 Vaginitis & Gunnar Sesay Vulvovaginitis Unspec V72.31 Routine Collar 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 Office Visit 08/26/2006 10:15a Main Office Uma Yu 784.2 Swelling In Head & BleGunnar y[place] Neck V15.06 Allergy To Insects Office Visit 06/06/2006 3:15p Main Office Yoly Khan 719.46 Pain Joint Lower Leg Gunnar Sesay Office Visit 09/14/2005 12:00p Main Office Yoly Khan 727.05 Tenosynovitis Hand & Gunnar Sesay Wrist Other Office Visit 06/09/2005 11:30a Main Office Yoly Khan 782.1 Rash & Other Nonspec Gunnar Sesay Skin Eruption 627.2 Menopausal Or Female Climacteric State, Symptomatic 620.2 Ovarian Cyst Other & Unspec Office Visit 04/12/2005 10:30a Main Office Yoly Khan 577.8 Pancreas Disease Gunnar Sesay Other Spec Office Visit 03/10/2005 11:30a Main Office Yoly Khan 789.01 Pain Abdominal Gunnar Sesay Right Upper Quadrant Office Visit 12/07/2004 9:45a Main Office Yoly Khan 530.81 Esophageal Reflux Gunnar Sesay 626.8 Menstruation & Other Abnormal Bleeding Disorders Other 785.1 Palpitations Office Visit 07/12/2004 10:45a Main Office Yoly Khan 536.8 Stomach Dyspepsia Gunnar Sesay & Other Spec Disorders Of Function 558.9 Gastroenteritis & Colitis Noninfectious Other Office Visit 06/25/2004 11:30a Main Office Yoly K.W. 782.1 Rash & Other Gunnar Sesay Nonspec Skin Eruption 787.02 Nausea Alone 785.1 Palpitations Office Visit 06/19/2004 9:45a Main Office Karsten Cote M.D. 599.0 UTI Urinary Tract Infection Site Not Spec Office Visit 06/04/2004 9:45a Main Office Colette Breen 466.0 Bronchitis Acute Aleks, F.N.P.C. Office Visit 05/31/2004 10:00a Main Office Yoly Khan 461.0 Sinusitis Acute Gunnar Sesay Maxillary Office Visit 03/01/2004 12:00p Main Office Colette Jamshid 599.0 UTI Urinary Tract Aleks, F.N.P.C. Infection Site Not Spec 590.80 Pyelonephritis Unspec Office Visit 02/27/2004 3:15p Main Office Colette ABarak 599.0 UTI Urinary Tract Aleks, F.N.P.C. Infection Site Not Spec 590.80 Pyelonephritis Unspec Office Visit 01/12/2004 10:00a Main Office Yoly Khan 461.1 Sinusitis Acute Gunnar Sesay Frontal 787.02 Nausea Alone 723.1 Cervicalgia Office Visit 10/22/2002 9:45a Main Office Colette Breen 989.5 Toxic Effect Of Aleks, F.N.P.C. 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
--- OUTSIDE RECORDS SUMMARY | 2018-02-13 13:28 | XMS REPORT ---
:1945 External Reference #:[id number] Author Organization [facility] Address [address] [place] [address] [place] [address] Phone [phone] Care Team Providers Name Role Phone Karsten Cote M.D. Primary Care Physician Unavailable Payers Type Date Identification Numbers Payment Provider Subscriber Health Maintenance Policy Number: Medicare Blue o Rosemarie Lopez (O) [id number] Group Number: [id number] [address] [address] PayID: [id number] NELLA Estes [address] Problems Description No Active Problems Family History Date Family Member(s) Problem(s) Comments Father due to complications for () - 80's broken hip Father colon cancer, [place] age 50 Mother due to atrial fib, colon () - 80's cancer Siblings 6 1/2 siblings, oldest brother, Karsten, diverticulitis. Yamilka, sister, recent bowel resection to rule out cancer. on mom's side. 1/2 brtehr on father's side trhat of [place] at age 60. Social History Type Date Description Comments Marital Status Single Lives With Alone Occupation retired Occupation [employer] ETOH Use Occasionally consumes alcohol 1-2 glasses of wine 5 days per week. None in past 9 days (as of 01/15/2018). Smoking Patient is a former smoker quit 20 yrs ago - 1-2 per day x 15 yrs Daily Caffeine Does Not Consume Caffeine Exercise Type/Frequency Does not exercise Allergies, Adverse Reactions, Alerts Date Description Reaction Status Severity Comments 02/04/2015 Doxycycline rash active 01/15/2018 Mela Extract active 01/15/2018 Barryton Mckenney Extract active vomiting 09/16/2014 NKDA inactive Medications Medication Date Status Form Strength Qnty SIG Indications Ordering Provider Ursodiol 01/15/ Active Tablets 250mg 60tabs Take 250mg K80.18 Carrillo 2018 capsule MD Amadeo twice daily Ondansetron 09/16/ Active Tablets 4mg 30tabs 1 tab 787.02 Rodger DBarak 2014 Dispers dissolve [place], under M.D. tongue every 8 hours as needed Epipen 2-Shon / Active Solution 0.3mg/0.3M use as Unknown 0000 Auto-Injec L directed t Diltiazem HCL / Active Caps ER 180mg 1 by mouth Unknown ER 0000 24HR every day Doxycycline / Hx Capsules 100mg one tablet Unknown Hyclate 0000 - twice 02/04/ daily 2014 Hydrocodone-Ac / Hx Tablets 5-325mg 1 by mouth Unknown etaminophen 0000 - every 4-6 09/15/ hours prn. 2014 Protonix / Hx Tablets DR 40mg 1 by mouth Unknown 0000 - every day 09/15/ prn 2015 Probiotic /00/ Hx Capsules daily Unknown Daily 0000 - 2017 Oxycodone-Acet / Hx Tablets 5-325mg as needed Unknown aminophen 0000 - pain 2014 Diltiazem HCL / Hx Caps ER 180mg 1 by mouth Unknown ER 0000 - 24HR every day 2017 Oxybutynin 00/ Hx Tablets ER 10mg 1 by mouth Unknown Chloride ER 0000 - 24HR every day 2014 [place] 3 / Hx Capsules 1000mg 1 by mouth Unknown 0000 - qd. 2014 Vital Signs Date Vital Result Comment 01/15/2018 Height 61 inches 5'1" Weight 113.00 lb w/o shoes Heart Rate 79 /min BP Systolic Sitting 137 mmHg BP Diastolic Sitting 89 mmHg BMI (Body Mass Index) 21.3 kg/m2 09/16/2014 Height 61 inches 5'1" Weight 111.25 lb Heart Rate 84 /min BP Systolic Sitting 128 mmHg BP Diastolic Sitting 72 mmHg Respiratory Rate 14 /min Body Temperature 97.8 F O2 % BldC Oximetry 98 % BMI (Body Mass Index) 21.0 kg/m2 Results Description No Information Procedures Date CPT Code Description Status 06/08/2016 29135 ECHO Transthorasic Realtime 2D W Doppler & Color Flow Completed Hosp 08/30/2010 09150 Rad Shoulder Comp, Min. 2 Views Completed 12/23/2009 82863 EKG, Interpretation Only Completed 12/22/2009 67218 EKG, Interpretation Only Completed Encounters Type Date Location Provider CPT E/M Dx Office Visit 09/16/2014 [facility] Harriet Rodarte [address] 088.81 9:50a Infectious Diseases Gunnar Bee 787.02 Office Visit 04/30/2014 9:22a [facility] Harriet Rodarte 59843 780.60 Infectious Diseases Gunnar Bee Office Visit 04/30/2014 6:43p [facility] [place] [address] 780.60 Assoc, Hospitalists 789.00 787.91 Office Visit 04/29/2014 9:19a [facility] Harriet Bee, 29480 780.60 Latoya Meneses M.D. 789.09 462 787.91 Office Visit 04/29/2014 6:42p [facility] [place] [address] 780.60 [facility] Hospital[facility] 789.00 787.91 Office Visit 08/30/2010 3:00p [facility] M.D. 18199 726.2 C.M.A. Plan of Care 01/15/2018 - Gerardo Childs, MDR10.9 Unspecified abdominal painFollow up:3 [id number] Spasm of sphincter of OddiInstructions:1. Avoid high-fat (deep fried ) foods.K80.18 Calculus of gallbladder w oth cholecystitis w/o obstructionNew Medication:Ursodiol 250 mgInstructions:1. Start ursodiol 250mg twice daily. 2. Return in 3 months.
[2018-02-13 13:29] LABS: EGFR Non-African American 85.3 (>60)
[2018-02-13] MEDS ORDERED: Metoclopramide IV* 5 MG/ML 2 ML VIAL IV SLOW PU ONE (13:44)
[2018-02-13] MEDS ORDERED: Acetaminophen TAB* 325 MG PO PRN (15:36)
[2018-02-13] MEDS ORDERED: Ondansetron INJ* 2 MG/ML VIAL IV PRN (15:36)
[2018-02-13] MEDS ORDERED: Enoxaparin(*) 40 MG/0.4 ML SYR SUBCUT SCH (16:00)
[2018-02-13] MEDS ORDERED: Ibuprofen TAB* 400 MG PO PRN (18:00)
[2018-02-13] MEDS ORDERED: Ibuprofen TAB* 400 MG ONE (18:04)
[2018-02-13] MEDS: Ursodiol CAP* 300 MG PO SCH (18:17)
[2018-02-13] MEDS ORDERED: Diltiazem CD CAP* 180 MG PO SCH (21:00)
--- NOTE | 2018-02-13 23:21 | HP ---
CC: Dr. Cote * HISTORY AND PHYSICAL: DATE OF ADMISSION: 02/13/18 PROVIDER: Samantha Curry NP ATTENDING PHYSICIAN WHILE IN THE HOSPITAL: Dr. Alessia Georges * (dictated by Samantha Curry NP). CHIEF COMPLAINT: 1. Chest pain. 2. Nausea. HISTORY OF PRESENT ILLNESS: Ms. 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 The patient also reports that yesterday after walking up a hill, she had chest pain and shortness of breath that subsided with rest. The patient denies any chest pain today. She denies any orthopnea or nocturnal dyspnea. She reports that she was able to stack wood without developing chest pain in the past, but has not been doing this as much since her recent hospitalization. The patient was recently admitted at the end of December and had an extensive workup for presyncope, nausea, and palpitations, and the etiology remained unclear. There were no acute findings during that hospitalization. At this time, given the patient's new symptomatology of chest pain, we were asked to see and evaluate her for admission. PAST MEDICAL HISTORY: Significant for: 1. Hypertension. 2. Insulinoma. 3. Palpitations. 4. Extreme nausea. PAST SURGICAL HISTORY: 1. Biliary and pancreatic sphincterotomy. 2. Hysterectomy. HOME MEDICATIONS: 1. Cardizem 180 mg p.o. daily. 2. Ursodiol 300 mg p.o. b.i.d. 3. EpiPen p.r.n. ALLERGIES TO MEDICATIONS: DOXYCYCLINE, MICHAEL. FAMILY HISTORY: Father with a history of an [place] at age 50. Mother with a history of atrial fibrillation and cardiac arrest. Great grandmother with a history of diabetes. Father with a history of colon cancer and several aunts with a history of breast cancer. SOCIAL HISTORY: The patient denies any tobacco, alcohol, or illicit drug use. She lives alone. Surrogate decision maker in the event she is unable to make her own decisions is her son, Kenneth. His phone number is [phone]. She is a full code. REVIEW OF SYSTEMS: There was no documented fever. There has been no significant weight change. There was no double vision, no ear discharge, no rhinorrhea. The patient denies any sore throat. She does report chest pain after exertion of walking up a hill. She denies nocturnal dyspnea or orthopnea. There is no abdominal pain. She does report extreme nausea. Denies any vomiting. Denies any urinary frequency or urgency. Denies any seizures or loss of consciousness. She does report palpitations and also reports the feeling of being off balance. A review of 14 systems was completed and all others were negative. PHYSICAL EXAMINATION GENERAL: At this time, Ms. Marino is a 73-year-old female, who appears well, sitting on the stretcher in the emergency room. She does not appear to be in any acute distress. VITAL SIGNS: Temperature was 98.3, heart rate is 66, respirations were 19, O2 saturation 97%, blood pressure 130/82. HEENT: Head is atraumatic, normocephalic. Eyes: EOMs are intact. Sclerae are anicteric and not pale. Oral mucosa appeared to be moist. No oropharyngeal erythema. NECK: Supple. LUNGS: Clear to auscultation bilaterally. No wheezes, rales, or rhonchi. CARDIAC: S1, S2. Regular rate and rhythm. There are no murmurs, rubs, or gallops. ABDOMEN: Soft and nontender. Bowel sounds are present x4. EXTREMITIES: Pulses are +2 bilaterally. She is able to move all 4 extremities with 5/5 strength. NEUROLOGIC: She is awake, alert, and oriented x3. She has no nystagmus. Speech is clear. There are no gross focal deficits. SKIN: Intact. DIAGNOSTIC STUDIES/LAB DATA: WBCs were 8.3, RBCs 4.80, hemoglobin 15.4, hematocrit was 45, platelet count was 231. Sodium 139, potassium 3.7, chloride 106, carbon dioxide was 27, anion gap was 6, BUN was 11, creatinine 0.68, glucose was 111, lactic acid was 1.6. TSH was 1.46, T4 was 7.25. Troponin was 0.00. EKG showed sinus tachycardia at a rate of 107. Chest x-ray showed no acute cardiopulmonary disease. CT of the brain showed no acute intracranial pathology. ASSESSMENT AND PLAN: Ms. Marino is a 73-year-old female with a past medical history significant for hypertension and insulinoma, status post biliary and pancreatic sphincterotomy in 1998, who presented to the emergency room with complaints of extreme nausea, palpitations, and presyncope, as well as experiencing left-sided chest pain. We were asked to see and evaluate her due to her new complaints of chest pain. She will be admitted under observation for : 1. Chest pain. At this time, the patient is chest pain-free. She has had no recurrent episodes of chest pain. She did report chest pain walking up a hill that subsided at rest. Given her family history of father with a myocardial infarction in his 50, at this point we will continue to trend troponins. Her MOSHE score is 1 giving her a 5% risk at 14 days of all-cause mortality, new or recurrent myocardial infarctions or severe recurrent ischemia requiring urgent revascularization. I will give her 324 of aspirin. We will order a nuclear stress test exercise in the a.m. The patient will be monitored on telemetry overnight and I will obtain orthostatic vital signs. 2. Extreme nausea. We will continue Zofran 4 mg IV q.6 hours as needed for extreme nausea. 3. Presyncopal. I will get orthostatic vital signs on her. She did have an extensive workup and reports that her symptoms are consistent with her previous symptoms with no changes. No further workup is needed at this time. She did have a CT of the brain that showed no acute intracranial pathology. Again, we will monitor her on telemetry and I will get orthostatic vital signs. 4. Code status. She is a full code. 5. DVT prophylaxis. I will place her on Lovenox subcu daily. 6. Disposition. She will be placed on observation on telemetry. 7. FEN. She can have a heart-healthy diet. TIME SPENT: Time spent on this admission was approximately 60 minutes, greater than half of that time was spent [id number] with the patient obtaining my history and physical, the other half of the time was spent going over my plan of care and implementing my plan of care. I have discussed this with my attending, Dr. Alessia Georges; she is in agreement with my plan. SAMANTHA CURRY NP [id number]/[facility] #: [id number] [facility]ITAL[facility]erm[facility]
[2018-02-14 07:38] LABS: ABS Basophils 0 10^3/ul (0-0.2); ABS Eosinophils 0.2 10^3/ul (0-0.6); ABS Lymphocytes 1.2 10^3/ul (1.0-4.8); ABS Monocytes 0.4 10^3/ul (0-0.8); ABS Neutrophils 3.3 10^3/ul (1.5-7.7); ABS Nucleated RBC 0 10^3/ul; Eosinophil % 3.7 %; Hematocrit 43 % (35-47); Mean Corpuscular HGB Conc 33 g/dl (31-36); Mean Corpuscular Hemoglobin 32 pg (27-31); Mean Corpuscular Volume 99 fL (80-97); Mean Platelet Volume 7.8 fL (7.4-10.4); Nucleated Red Blood Cells % 0.2; Platelet Count 168 10^3/ul (150-450); Red Blood Count 4.32 10^6/ul (4.00-5.40); Red Cell Distribution Width 14 % (10.5-15); White Blood Count 5.2 10^3/ul (3.5-10.8)
[2018-02-14 07:40] LABS: EGFR Non-African American 93.2 (>60)
[2018-02-14] MEDS ORDERED: Atorvastatin* 80 MG TAB PO ONE (12:56)
[2018-02-14 14:36] VITALS: BP 107/65
[2018-02-14] MEDS: Ursodiol CAP* 300 MG PO SCH (14:55)
--- NOTE | 2018-02-15 09:34 | DS ---
CC: Dr. Emely Lara; Dr. Bob Worthington * DISCHARGE SUMMARY: DATE OF ADMISSION: 02/13/18 DATE OF DISCHARGE: 02/14/18 PRIMARY CARE PROVIDER: Dr. Karsten Cote. MY ATTENDING WHILE IN THE HOSPITAL: Dr. Alessia Georges.* (DICTATED BY PHILLIP PERAZA) OUTPATIENT CARPENTERS SUPERVISOR: Dr. Emely Lara. PRIMARY DISCHARGE DIAGNOSES: 1. Chest pain. 2. Palpitations. 3. Presyncope. SECONDARY DISCHARGE DIAGNOSES: 1. Hypertension. 2. Possible history of insulinoma. STUDIES DONE WHILE IN THE HOSPITAL: Electrocardiogram from 02/13/18 shows sinus tachycardia, ST-segment depressions in V4 through V6 as well as in lead II. No blocks or hypertrophy. Minimal ST segment elevation in aVR. No significant ST segment abnormalities. Normal R-wave progression, rate of 107, QTc of 463. Repeat EKG shows resolution of ST-segment depressions, rate of 66, QTc of 433. No significant changes. Chest x-ray from 02/13/18 read as no active cardiopulmonary disease. Brain CT from 02/13/18 read as no acute intracranial pathology. Nuclear medicine scan 02/14/18 read as no evidence for stress-induced myocardial ischemia or presence of an infarct. Normal left ventricular wall-motion ejection fraction, low risk based on nuclear portion. MEDICATIONS AT DISCHARGE: 1. Aspirin 81 mg p.o. daily. 2. Atorvastatin 80 mg p.o. daily. 3. Tylenol 650 mg p.o. q.4 hours as needed. 4. Ursodiol 300 mg p.o. b.i.d. 5. Diltiazem 180 mg p.o. at bedtime. 6. EpiPen 0.3 mg intramuscular as needed for allergic reaction. HOSPITAL COURSE: This is a brief summary of the patient's presentation. For more details, please see the history and physical from Samantha Curry NP, on 02/13/18. In brief, the patient is a 73-year-old female with a complex past medical history mainly concerning her frequent spells, which she has, which consists of palpitations, dizziness, and extreme nausea. The patient has had a significant workup for this. She was initially diagnosed with an insulinoma, but this diagnoses has been called into question and the supporting data for it has not been able to be obtained. The patient was treated with pancreatic sphincterotomy and biliary sphincterotomy, but this did not improve her symptoms. The patient was admitted to this institution in late December and had a comprehensive evaluation, which showed the possibility of biliary disease. There was also concern for pheochromocytoma. The patient had negative 24 urine metanephrine study. The patient 2 days before admission was walking up a hill and had classic anginal chest pain and shortness of breath, which subsided with rest. The patient on the day of admission had different spell with extreme nausea, palpitations, syncope, and dizziness without chest pain. The patient was admitted to the hospital due to the concern for ongoing spells as well as classic angina. The patient had only slightly elevated blood pressure on admission, which is not consistent with her previous presentation when she was very hypertensive. The patient had no other acute issues overnight, but during her stress test had angina with shortness of breath, nausea, and pain radiating into her neck. This case was discussed with both Dr. Mile Brower of Cardiology and Dr. Dom Mcgrath of Interventional Cardiology. Dr. Dom Mcgrath recommended medical management for her likely coronary artery disease and angina, but no catheterization at this time. The patient was started on atorvastatin and aspirin, which she tolerated inpatient. The patient was also fitted with a Holter monitor upon her discharge from the hospital with plans to follow up with her outpatient textile engraver, Dr. Emely Lara after she has an echocardiogram in early February to discuss both the results of the Holter monitor, discussion of longer term implantable monitoring and continued monitoring for ongoing spells. It was discussed with the patient that she may be at some point be able to be started on a beta jason to help decrease the frequency of these spells; however, this decision was deferred until she was able to follow up with Dr. Lara given possibility of poor outcome if the patient's spells are related to overstimulation from catecholamines. The patient had a relatively unremarkable laboratory data as well as negative troponins. The patient had an LDL of 104 and was subsequently started on Lipitor. The patient was stable and amenable for discharge on 02/14/18. PHYSICAL EXAMINATION ON DAY OF DISCHARGE: General: The patient is a 73-year- old female who appears much younger than her stated age, sitting comfortably in bed, in no acute distress. HEENT: Normocephalic and atraumatic. Sclerae anicteric. No conjunctival injection. Nasal mucosa moist. Oral mucosa moist. No oropharyngeal erythema, discharge, or exudate. Vital Signs: Temperature 98.7, pulse 59, respiratory rate 18, oxygen saturation 100% on room air, blood pressure 107/65. Neck: Supple and nontender. No lymphadenopathy. No carotid bruits auscultated. No JVD. Cardiac: Regular rate and rhythm. No clicks, murmurs, gallops, or rubs. Pulse 2+ in the bilateral dorsalis pedis, posterior tibialis, and radial areas. Respiratory: Clear to auscultation bilaterally. No wheezes, rales, or rhonchi. Good air exchange bilaterally. Abdomen: Soft, nontender, and nondistended. Bowel sounds present. Normoactive in all 4 quadrants. No hepatosplenomegaly. No abdominal bruits auscultated. No hepatojugular reflux. Genitourinary: No suprapubic or CVA tenderness. Skin: Clean, dry, and intact. No rashes. Psychiatric: Pleasant and cooperative. DISCHARGE PLAN: The patient will be discharged to home. The patient will be started on aspirin and atorvastatin as above. The patient will have other antianginal therapies initiated at the discretion of her outpatient textile engraver. The patient will have a Holter monitor with hopes of catching any arrhythmias, which may be provoking or being provoked by these spells. The patient should follow up with her outpatient farm equipment technician. The patient has previously been referred to Dr. Bob Worthington and should follow up with him as soon as he is available to investigate if possible gastroenterological cause of her spells and to help clarify the status of her possible gallbladder disease. The patient will be maintained on ursodiol, which was prescribed by her business analyst manager. She will follow up with her primary care provider within 1 week for general medical management and to ensure her tolerance of her statin and aspirin. The patient should return to the hospital for any chest pain or recurrent episodes of palpitations or presyncope as well as syncope. The patient should have a heart- healthy diet without caffeine. Can engage in activities as tolerated. TIME SPENT: Approximately 1 hour was spent on the discharge of this patient, 30 of which was spent [id number] with the patient obtaining history and physical and discussing treatment plan. PHILLIP PERAZA [id number]/[facility] #: [id number] [place]
[2018-02-15] MEDS ORDERED: Aspirin EC TAB* 81 MG TAB.EC PO ONE (12:56)
== END 2018-02-14 14:42 | disposition home or self-care (01) ==
LOC: ED 11:56 → MEDTELE 15:36
PROVIDERS: ADMIT Internal Medicine; ATTEND Internal Medicine
DX: R07.9 Chest pain, unspecified (principal); R00.2 Palpitations; R55 Syncope and collapse; R42 Dizziness and giddiness; R11.0 Nausea; Z86.39 Personal history of other endocrine, nutritional and metabolic disease; I10 Essential (primary) hypertension; Z87.891 Personal history of nicotine dependence; Z79.82 Long term (current) use of aspirin
CPT/HCPCS: 36415; 70450; 71045; 78452; 80048; 80053; 80061; 83605; 84436; 84443; 84484; 85025; 93005; 93017; 96372; 96374; 96375; 96376; 99284; A9270-GY; A9502; G0378; J1650; J2405; J3490

== ENCOUNTER 2019-05-05 01:59 | Emergency (ER) | payer MEDICARE ==
--- OUTSIDE RECORDS SUMMARY | 2019-05-05 02:05 | XMS REPORT | Continuity of Care Document ---
:1945 External Reference #:[id number] Author Name Emely Lara M.D. (transmitted by agent of provider Aviva Zazueta) Address [address] [place] [id number] Care Team Providers Name Role Phone Karsten Cote M.D. - Family Medicine Care Team Information Commercial Fisher [phone] Marilee Barnett MD - Nephrology Care Team Information Commercial Fisher [phone] Problems Description No Active Problems Social History Type Date Description Comments Sex Unknown ETOH Use Occasionally consumes alcohol ETOH Use Consumed liquor 5 times per week in the past Tobacco Use Start: Unknown End: Patient is a former quit 20 yrs ago - Unknown smoker 1-2 per day x 15 yrs Recreational Drug Use Denies Drug Use Smoking Status Reviewed: 10/17/18 Patient is a former quit 20 yrs ago - smoker 1-2 per day x 15 yrs Exercise Type/Frequency Exercises sporadically Allergies, Adverse Reactions, Alerts Active Allergies Reaction Severity Comments Date Doxycycline rash 02/04/2015 Mela Extract 01/15/2018 [place] Extract vomiting 01/15/2018 Nexium vision loss 03/27/2018 Inactive Allergies NKDA 09/16/2014 Medications Active Medications SIG Qnty Indications Ordering Provider Date Aspir-81 1 by mouth every 90tabs Lisa Beard, 02/20/2018 81mg Tablets day N.P. DR Reid take 1 tab by 30tabs E78.00 Lisa Beard, 02/15/2018 10mg Tablets mouth daily N.P. Epipen 2-Shon use as directed Unknown 0.3mg/0.3ML Solution Auto-Inject Metoprolol Succinate Take 1/2 Tablet 45tabs Lisa Beard, ER By Mouth Daily N.P. 25mg Tablets ER 24HR Immunizations Description No Information Available Vital Signs Date Vital Result Comment 04/29/2019 9:30am Height 61 inches 5'1" Weight 118.12 lb Heart Rate 80 /min BP Systolic Sitting 138 mmHg Ule Regular Cuff BP Diastolic Sitting 80 mmHg Ule Regular Cuff BMI (Body Mass Index) 22.3 kg/m2 Ejection Fraction Echo 55-6% 10/17/2018 10:39am Height 61 inches 5'1" Weight 115.00 lb Heart Rate 75 /min BP Systolic Sitting 116 mmHg reg cuff left arm BP Diastolic Sitting 79 mmHg reg cuff left arm O2 % BldC Oximetry 99 % Room air BMI (Body Mass Index) 21.7 kg/m2 Results Description No Information Available Procedures Date Code Description Status 04/29/2019 99112 EKG Tracing & Interpretation Completed 02/25/2009 05018725 Colonoscopy Completed 02/10/1997 77949261 Colonoscopy Completed Medical Devices Description No Information Available Encounters Description No Information Available Assessments Date Code Description Provider 04/29/2019 I10 Essential (primary) hypertension Emely Lara M.D. 04/29/2019 I49.9 Cardiac arrhythmia, unspecified Emely Lara M.D. 04/29/2019 R00.2 Palpitations Emely Lara M.D. Plan of Treatment Future Appointment(s):07/23/2019 3:00 pm - Emely [facility] M.D. at [facility]04/29/2019 - Emely Lara M.D.I10 Essential (primary ) hypertensionFollow up:one yr ovI49.9 Cardiac arrhythmia, unspecifiedNew Orders :Pulse Oximetry Overnight, Scheduled: 05/02/19R00.2 PalpitationsNew Orders:[facility] Tele[facility], Ordered: 04/29/19Follow up:06/2019 ov to discuss results Functional Status Description No Information Available Mental Status Description No Information Available Referrals Description No Information Available
--- OUTSIDE RECORDS SUMMARY | 2019-05-05 02:05 | XMS REPORT | Continuity of Care Document ---
:1945 External Reference #:[id number] Author Name Jer Munson Address [facility] [place] [address] Care Team Providers Name Role Phone Ovidio Chase NP Care Team Information Band Master [phone] Gerardo Childs MD Care Team Information Band Master [phone] Problems Active Problems Provider Date Gastroesophageal reflux disease Carter Santiago MD Onset: 03/11/2014 Social History Type Date Description Comments Sex Unknown Tobacco Use Start: Unknown End: Unknown Patient is a former smoker Smoking Status Reviewed: 04/22/19 Patient is a former smoker Allergies, Adverse Reactions, Alerts Description No Known Drug Allergies Medications Active Medications SIG Qnty Indications Ordering Provider Date Suprep Bowel Prep Kit as directed 1units Jer Munson 04/22/2019 17.5-3.13-1.6GM/177ML Solution Lipitor 30tabs Unknown 02/14/2018 10mg Tablets Epipen 2-Shon Unknown 01/06/2014 0.3mg/0.3ML Solution Auto-Inject Metoprolol Succinate 1/2 Tablet Daily Unknown ER 25mg Tablets ER 24HR Immunizations Description No Information Available Vital Signs Date Vital Result Comment 04/22/2019 1:23pm Height 61.5 inches 5'1.50" Weight 118.00 lb BP Systolic 138 mmHg BP Diastolic 81 mmHg Heart Rate 75 /min BMI (Body Mass Index) 21.9 kg/m2 03/02/2018 1:17pm Height 61.5 inches 5'1.50" Weight 113.00 lb BP Systolic 130 mmHg BP Diastolic 88 mmHg Heart Rate 69 /min BMI (Body Mass Index) 21.0 kg/m2 Results Description No Information Available Procedures Description No Information Available Medical Devices Description No Information Available Encounters Description No Information Available Assessments Date Code Description Provider 04/22/2019 D37.6 Neoplasm of uncertain behavior of liver, 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 04/22/2019 K59.00 Constipation, unspecified Jer Jeimy DO 04/22/2019 Z80.0 Family history of malignant neoplasm of digestive Jer Munson DO organs Plan of Treatment Future Appointment(s):05/30/2019 8:00 am - Jer Munson DO at [facility]04/22/2019 - Jer Jeimy, DOD37.6 Neoplasm of uncertain behavior of liver, gallbladder and bile ductsNew Xrays:MRI,MRCP W/ W/ O Contrast ([id number]), Ordered: 04/22/19K59.00 Constipation, gprvyxmefzyW52.0 Family history of malignant neoplasm of digestive organs Functional Status Description No Information Available Mental Status Description No Information Available Referrals Description No Information Available
--- OUTSIDE RECORDS SUMMARY | 2019-05-05 02:05 | XMS REPORT | Continuity of Care Document ---
:1945 External Reference #:[id number] Author Name Jer Munson Address [facility] [place] [address] Care Team Providers Name Role Phone Ovidio Chase NP Care Team Information Core Cleaner [phone] Gerardo Childs MD Care Team Information Core Cleaner [phone] Problems Active Problems Provider Date Gastroesophageal reflux [...] BMI (Body Mass Index) 21.0 kg/m2 Results Test Acquired Date Facility Test Result H/L Range Note Comp Metabolic Panel 05/01/2019 [facility] Sodium 139 mmol/L Normal 135-145 Potassium 3.9 mmol/L Normal 3.5-5.0 Chloride 104 mmol/L Normal 101-111 Co2 Carbon Dioxide 28 mmol/L Normal 22-32 Anion Gap 7 mmol/L Normal 2-11 Glucose 101 mg/dL High 70-100 Blood Urea Nitrogen 16 mg/dL Normal 6-24 Creatinine 0.75 mg/dL Normal 0.51-0.95 BUN/Creatinine Ratio 21.3 High 8-20 Calcium 9.7 mg/dL Normal 8.6-10.3 Total Protein 7.2 g/dL Normal 6.4-8.9 Albumin 4.6 g/dL Normal 3.2-5.2 Globulin 2.6 g/dL Normal 2-4 Albumin/Globulin Ratio 1.8 Normal 1-3 Total Bilirubin 0.60 mg/dL Normal 0.2-1.0 Alkaline Phosphatase 97 U/L Normal 34-104 Alt 17 U/L Normal 7-52 Ast 20 U/L Normal 13-39 Egfr Non- 76.0 >60 Egfr 91.9 >60 1 1 Because ethnic data is not always readily [...] 15-29 5 Kidney failure <15 (or dialysis) Procedures Description No Information Available Medical Devices Description No Information Available Encounters Type Date Location Provider Dx Diagnosis Office Visit 04/22/2019 Gastroenterology Jer Munson, D37.6 Neoplasm of 1:30p [facility] uncertain behavior of liver, GB & bile duct K59.00 Constipation, unspecified Z80.0 Family history of malignant neoplasm of digestive organs Assessments Date Code Description Provider 04/22/2019 D37.6 Neoplasm of uncertain behavior of liver, 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
--- OUTSIDE RECORDS SUMMARY | 2019-05-05 02:05 | XMS REPORT | Continuity of Care Document ---
:1945 External Reference #:[id number] Author Name Jer Munson DO (transmitted by agent of provider Bridgette Rock) Address [address] [place] [id number] Care Team Providers Name Role Phone Ovidio Chase NP Care Team Information Veneer Marker [phone] Gerardo Childs MD Care Team Information Veneer Marker [phone] Problems Active Problems Provider Date Gastroesophageal reflux [...] Prep Kit as directed 1units Jer Munson DO 04/22/2019 17.5-3.13-1.6GM/177ML Solution Lipitor 30tabs Unknown 02/14/2018 [...] 8:00 am - Jer Munson DO at [facility]04/22/2019 - Jer Munson DOD37.6 Neoplasm of uncertain behavior of liver, gallbladder and bile ductsNew Xrays:MRI,MRCP W/ W/ O Contrast ([id number]), Ordered: 04/22/19K59.00 Constipation, mbnfgpwrafiU04.0 Family history of malignant neoplasm of digestive organs Functional Status Description No Information Available Mental Status Description No Information Available Referrals Description No Information Available
[2019-05-05 02:38] LABS: ABS Eosinophils 0.2 10^3/ul (0-0.6); ABS Monocytes 0.7 10^3/ul (0-0.8); ABS Neutrophils 9.4 10^3/ul (1.5-7.7); Eosinophil % 2.1 %; Hematocrit 41 % (35-47); Hemoglobin 14.5 g/dL (12.0-16.0); Mean Corpuscular HGB Conc 35 g/dL (31-36); Mean Corpuscular Hemoglobin 33 pg (27-31); Mean Corpuscular Volume 94 fL (80-97); Mean Platelet Volume 7.3 fL (7.4-10.4); Platelet Count 199 10^3/uL (150-450); Red Blood Count 4.39 10^6 /uL (3.70-4.87); Red Cell Distribution Width 13 % (10-15); White Blood Count 11.4 10^3/uL (3.5-10.8)
[2019-05-05 02:43] LABS: INR 1.07 (0.82-1.09)
[2019-05-05 02:51] LABS: Albumin 4.4 g/dL (3.2-5.2); Calcium 9.2 mg/dL (8.6-10.3); Potassium 3.9 mmol/L (3.5-5.0); Total Bilirubin 0.5 mg/dL (0.2-1.0)
[2019-05-05 02:57] LABS: Albumin/Globulin Ratio 1.6 (1-3); BUN/Creatinine Ratio 18.5 (8-20); C Reactive Protein 9.03 mg/L (<8.01); EGFR African American 108.4 (>60); EGFR Non-African American 89.6 (>60); Globulin 2.8 g/dL (2-4); Total Protein 7.2 g/dL (6.4-8.9)
--- NOTE | 2019-05-05 03:28 | ED ---
Complex/Multi-Sys Presentation - HPI Summary HPI Summary: 74 year old female presents to the ED with a chief complaint of severe nausea and hypertension she states the nausea started several hours ago. Something like this happened a year ago and she was admitted for hypertensive crisis. She took her blood pressure tonight and found it to be 135/110. Patient took Zofran for the nausea but it did not alleviate symptoms. Patient states her blood pressure increased at home and she became nervous and came in. She states she's had a few episodes of nausea preceding high blood pressure in the last year. Zofran doesn't normally help that much. She does usually take an extra metoprolol and that helps. Today she did not take an extra metoprolol. 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 Has chronic RUQ discomfort. Upon arrival her blood pressure is coming down. Nausea has decreased but is still present. No chest pain. No shortness of breath. No headache. No visual changes. Patient denies vomiting, diarrhea or diaphoresis. Patient drinks alcohol occasionally. Former smoker. Does not do recreational drugs. 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 FHx of cancer and MD. - History Of Current Complaint Chief Complaint: EDNauseaVomitDiarrh Time Seen by Provider: 05/05/19 02:04 Hx Obtained From: Patient Onset/Duration: Sudden Onset, Lasting Hours, Still Present Timing: Constant Severity Currently: Mild Severity Initially: Moderate Associated Signs And Symptoms: Positive: Headache, Palpitations, Nausea, Abdominal Pain. 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 Denies: Hx Diabetes, Hx Systemic Lupus Erythematosus Cardiovascular History: Reports: Hx Angina, Hx Hypertension, Hx Syncope, Hx Valvular Heart Disease - "mitral valve", Other Cardiovascular Problems/ Disorders - mitral valve problem Denies: Hx Congestive Heart Failure, Hx Coronary Artery Disease, Hx Hypercholesterolemia, Hx Myocardial Infarction, Hx Pacemaker/ICD Respiratory History: Reports: Hx Pneumonia Denies: Other Respiratory Problems/Disorders GI History: Reports: Other GI Disorders - biliary sphincter issue, pancreatic sphincter issue History: Denies: Hx Dialysis, Hx Renal Disease Musculoskeletal History: Denies: Hx Rheumatoid Arthritis Sensory History: Reports: Hx Contacts or Glasses Denies: Hx Hearing Aid Opthamlomology History: Reports: Hx Contacts or Glasses Psychiatric History: Denies: Hx Panic Disorder - Cancer History Cancer Type, Location and Year: no Hx Chemotherapy: No Hx Radiation Therapy: No - Surgical History Surgery Procedure, Year, and Place: hysterectomy 2009; billiary and pancreatic sphycterotomy; benign tumor removed from neck Hx Anesthesia Reactions: No - Immunization History Date of Tetanus Vaccine: PT STATES UNSURE Date of Influenza Vaccine: doesn't get them Infectious Disease History: No Infectious Disease History: Reports: Hx Hepatitis - since resolved, needed ERCP , History Other Infectious Disease - lyme disease Denies: Traveled Outside the [place] in Last 30 Days - Family History Known Family History: Positive: Cardiac Disease, Other - afib, MD, colon CA - Social History Alcohol Use: Rare Substance Use Type: Reports: None Hx Tobacco Use: No Smoking Status (MU): Former Smoker Type: Cigarettes Amount Used/How Often: quit 20 yrs ago Review of Systems - ROS Summary Review of Systems Summary: Home Medications Medication Instructions Recorded Confirmed Type EPINEPHrine [Epipen 2-Shon] 0.3 mg IJ ONCE PRN 01/06/14 02/13/18 History dilTIAZem HCl [Cartia Xt] 180 mg PO BEDTIME #30 cap.er.24h 01/06/18 02/13/18 Rx Ursodiol CAP* [Actigall CAP 300 300 mg PO BID 02/13/18 02/13/18 History MG*] Acetaminophen TAB* [Tylenol TAB*] 650 mg PO Q4H PRN tab 02/14/18 Rx Aspirin EC TAB* [Ecotrin EC Low 81 mg PO DAILY #30 tab.ec 02/14/18 Rx Dose 81 MG*] Atorvastatin* [Lipitor*] 80 mg PO DAILY #30 tab 02/14/18 Rx Negative: Skin Diaphoresis Positive: Palpitations Positive: Abdominal Pain, Nausea. Negative: Diarrhea Positive: Headache All Other Systems Reviewed And Are Negative: Yes Physical Exam - Summary Physical Exam Summary: General: Well-developed, Well-nourished female. No acute distress. Mildly anxious appearing. HEENT: Normocephalic, Atraumatic. Eyes: Conjuctiva normal, PERRL. Ears: TMs within normal limits. Nares: (-) discharge, (-) erythema. Oropharynx: Clear, mucous membranes moist, (-) exudates. Neck: Soft, FROM, (-) lymphadenopathy, (-) thyromegaly, (-) JVD. Cardiovascular: Normal sinus rhythm, (-) murmur. Lungs: Clear to auscultation bilaterally (-) wheezes, (-) rales, (-) rhonchi. Abdomen: Soft, non-tender, non-distended, (-) organomegaly, normal bowel sounds. Back: (-) CVA tenderness Extremities: No edema. Skin: Warm, dry, (-) rash. Neuro: Alert and oriented x3, no focal deficits. Psychiatric: Mood normal, affect normal. Triage Information Reviewed: Yes Vital Signs On Initial Exam: Initial Vitals Temp Pulse Resp BP Pulse Ox 97.6 F 73 15 160/70 98 05/05/19 02:00 05/05/19 02:00 05/05/19 02:00 05/05/19 02:00 05/05/19 02:00 Vital Signs Reviewed: Yes Procedures - Sedation Patient Received Moderate/Deep Sedation with Procedure: No Diagnostics - Vital Signs Vital Signs Temp Pulse Resp BP Pulse Ox 05/05/19 02:58 67 18 130/80 94 05/05/19 02:03 76 16 97 05/05/19 02:00 97.6 F 73 15 160/70 98 - Laboratory Lab Results: Lab Results 05/05/19 05/05/19 05/05/19 Range/Units 02:29 02:29 02:29 WBC 11.4 H (3.5-10.8) 10^3/uL RBC 4.39 (3.70-4.87) 10^6 /uL Hgb 14.5 (12.0-16.0) g/dL Hct 41 (35-47) % MCV 94 (80-97) fL MCH 33 H (27-31) pg MCHC 35 (31-36) g/dL RDW 13 (10-15) % Plt Count 199 (150-450) 10^3/uL MPV 7.3 L (7.4-10.4) fL Neut % (Auto) 82.4 % Lymph % (Auto) 9.0 % [place] % (Auto) 6.2 % Eos % (Auto) 2.1 % Baso % (Auto) 0.3 % Absolute Neuts (auto) 9.4 H (1.5-7.7) 10^3/ul Absolute Lymphs (auto) 1.0 (1.0-4.8) 10^3/ul Absolute Monos (auto) 0.7 (0-0.8) 10^3/ul Absolute Eos (auto) 0.2 (0-0.6) 10^3/ul Absolute Basos (auto) 0.0 (0-0.2) 10^3/ul Absolute Nucleated RBC 0.0 10^3/ul Nucleated RBC % 0.0 INR (Anticoag Therapy) (0.82-1.09) Sodium 139 (135-145) mmol/L Potassium 3.9 (3.5-5.0) mmol/L Chloride 107 (101-111) mmol/L Carbon Dioxide 25 (22-32) mmol/L Anion Gap 7 (2-11) mmol/L BUN 12 (6-24) mg/dL Creatinine 0.65 (0.51-0.95) mg/dL Est GFR ( Amer) 108.4 (>60) Est GFR (Non-Af Amer) 89.6 (>60) BUN/Creatinine Ratio 18.5 (8-20) Glucose 112 H (70-100) mg/dL Lactic Acid 1.2 (0.5-2.0) mmol/L Calcium 9.2 (8.6-10.3) mg/dL Total Bilirubin 0.50 (0.2-1.0) mg/dL AST 18 (13-39) U/L ALT 16 (7-52) U/L Alkaline Phosphatase 89 (34-104) U/L C-Reactive Protein 9.03 H (<8.01) mg/L Total Protein 7.2 (6.4-8.9) g/dL Albumin 4.4 (3.2-5.2) g/dL Globulin 2.8 (2-4) g/dL Albumin/Globulin Ratio 1.6 (1-3) Amylase 50 (29-103) U/L Lipase 36 (11.0-82.0) U/L /16 Range/Units 02:29 WBC (3.5-10.8) 10^3/uL RBC (3.70-4.87) 10^6 /uL Hgb (12.0-16.0) g/dL Hct (35-47) % MCV (80-97) fL MCH (27-31) pg MCHC (31-36) g/dL RDW (10-15) % Plt Count (150-450) 10^3/uL MPV (7.4-10.4) fL Neut % (Auto) % Lymph % (Auto) % [place] % (Auto) % Eos % (Auto) % Baso % (Auto) % Absolute Neuts (auto) (1.5-7.7) 10^3/ul Absolute Lymphs (auto) (1.0-4.8) 10^3/ul Absolute Monos (auto) (0-0.8) 10^3/ul Absolute Eos (auto) (0-0.6) 10^3/ul Absolute Basos (auto) (0-0.2) 10^3/ul Absolute Nucleated RBC 10^3/ul Nucleated RBC % INR (Anticoag Therapy) 1.07 (0.82-1.09) Sodium (135-145) mmol/L Potassium (3.5-5.0) mmol/L Chloride (101-111) mmol/L Carbon Dioxide (22-32) mmol/L Anion Gap (2-11) mmol/L BUN (6-24) mg/dL Creatinine (0.51-0.95) mg/dL Est GFR ( Amer) (>60) Est GFR (Non-Af Amer) (>60) BUN/Creatinine Ratio (8-20) Glucose (70-100) mg/dL Lactic Acid (0.5-2.0) mmol/L Calcium (8.6-10.3) mg/dL Total Bilirubin (0.2-1.0) mg/dL AST (13-39) U/L ALT (7-52) U/L Alkaline Phosphatase (34-104) U/L C-Reactive Protein (<8.01) mg/L Total Protein (6.4-8.9) g/dL Albumin (3.2-5.2) g/dL Globulin (2-4) g/dL Albumin/Globulin Ratio (1-3) Amylase (29-103) U/L Lipase (11.0-82.0) U/L Result Diagrams: 05/05/19 02:29 05/05/19 02:29 Lab Statement: Any lab studies that have been ordered have been reviewed, and results considered in the medical decision making process. Complex Multi-Symp Course/Dx Course Of Treatment: 74-year-old female presents from home with severe nausea. Patient states she had an unexplained episode 1 year ago of severe nausea and ended up with hypertensive crisis, admitted to this hospital. Since then she has had periods of nausea that accompanies high blood pressure which is usually helped with extra doses of metoprolol. She does have Zofran at home which usually does not help her nausea. Tonight her nausea was severe despite Zofran. Blood pressure elevated at home. En route she received more Zofran. Her nausea has decreased some in her blood pressure is decreasing as she arrives at the hospital. Physical exam is otherwise within normal limits. Workup demonstrates slightly elevated white count. No other significant findings. Patient is discharged home feeling much better. Blood pressure 116/ 72 upon discharge. Follow up with PCP. Follow-up sooner for any worsening symptoms. - Diagnoses Provider Diagnoses: Nausea, Hypertension Is Visit Related: No Discharge ED - Sign-Out/Discharge Documenting (check all that apply): Patient Departure - discharge home - Discharge Plan Condition: Stable Disposition: HOME Patient Education Materials: Acute Nausea and Vomiting (ED), Hypertension (ED) Referrals: [facility] [Outside] Additional Instructions: Follow up with your primary care provider in 2-3 days. Return to the ED if you experience new or worsened symptoms. - Billing Disposition and Condition Condition: STABLE Disposition: Home - Attestation Statements Document Initiated by Jingibe: Yes Documenting Scribe: Eloy Wagner Provider For Whom Rossy is Documenting (Include Credential): Tara Church MD Scribe Attestation: Eloy Chris, scribed for Tara Church MD on 05/05/19 at 0602. Scribe Documentation Reviewed: Yes Provider Attestation: The documentation as recorded by the Eloy pickens accurately reflects the service I personally performed and the decisions made by me, Tara Church MD Status of Scribe Document: Viewed
[2019-05-05 04:09] VITALS: BP 116/72
== END 2019-05-05 04:09 | disposition home or self-care (01) ==
LOC: ED 01:59
DX: R11.0 Nausea (principal); I10 Essential (primary) hypertension; Z87.891 Personal history of nicotine dependence; Z90.710 Acquired absence of both cervix and uterus; Z79.82 Long term (current) use of aspirin; Z79.899 Other long term (current) drug therapy; Z88.1 Allergy status to other antibiotic agents
CPT/HCPCS: 36415; 80053; 82150; 83605; 83690; 85025; 85610; 86140; 99282

== ENCOUNTER 2020-11-09 09:35 | Observation (INO) ==
[2020-11-09 11:29] LABS: ABS Eosinophils 0.1 10^3/ul (0-0.6); ABS Lymphocytes 0.9 10^3/ul (1.0-4.8); ABS Monocytes 0.4 10^3/ul (0-0.8); ABS Neutrophils 4.5 10^3/ul (1.5-7.7); Eosinophil % 2.1 %; Hematocrit 45 % (35-47); Hemoglobin 15.4 g/dL (12.0-16.0); Lymphocyte % 14.7 %; Mean Corpuscular HGB Conc 34 g/dL (31-36); Mean Corpuscular Hemoglobin 33 pg (27-31); Mean Corpuscular Volume 96 fL (80-97); Mean Platelet Volume 7.4 fL (7.4-10.4); Platelet Count 223 10^3/uL (150-450); Red Blood Count 4.66 10^6 /uL (3.70-4.87); Red Cell Distribution Width 13 % (10-15); White Blood Count 5.9 10^3/uL (3.5-10.8)
[2020-11-09 11:41] LABS: Activated Partial Thrombo Time 30.8 seconds (26.0-38.0); INR 1.12 (0.86-1.15)
[2020-11-09 11:52] LABS: Albumin 4.3 g/dL (3.2-5.2); Albumin/Globulin Ratio 1.5 (1-3); Calcium 9.2 mg/dL (8.6-10.3); EGFR African American 116.3 (>60); EGFR Non-African American 96.1 (>60); Globulin 2.9 g/dL (2-4); Potassium 3.7 mmol/L (3.5-5.0); Total Bilirubin 0.5 mg/dL (0.2-1.0); Total Protein 7.2 g/dL (6.4-8.9)
[2020-11-09] MEDS ORDERED: Ondansetron 4 mg VIAL 2 MG/ML 2 ml VIAL IV PRN (12:54)
[2020-11-09] MEDS: Enoxaparin 40 MG/0.4 ML SYR SUBCUT SCH (16:35)
[2020-11-10 06:28] LABS: ABS Eosinophils 0.3 10^3/ul (0-0.6); ABS Lymphocytes 1.7 10^3/ul (1.0-4.8); ABS Monocytes 0.5 10^3/ul (0-0.8); ABS Neutrophils 3.6 10^3/ul (1.5-7.7); Eosinophil % 4.4 %; Hematocrit 43 % (35-47); Hemoglobin 15.1 g/dL (12.0-16.0); Lymphocyte % 27.3 %; Mean Corpuscular HGB Conc 35 g/dL (31-36); Mean Corpuscular Hemoglobin 33 pg (27-31); Mean Corpuscular Volume 96 fL (80-97); Mean Platelet Volume 7.4 fL (7.4-10.4); Platelet Count 207 10^3/uL (150-450); Red Blood Count 4.53 10^6 /uL (3.70-4.87); Red Cell Distribution Width 13 % (10-15); White Blood Count 6.1 10^3/uL (3.5-10.8)
[2020-11-10 06:47] LABS: Calcium 8.8 mg/dL (8.6-10.3); EGFR African American 110.1 (>60); HDL Cholesterol 48.7 mg/dL
[2020-11-10] MEDS ORDERED: Perflutren Lipid Microsphere 3 ML VIAL ONE (07:53)
[2020-11-10] MEDS: Enoxaparin 40 MG/0.4 ML SYR SUBCUT SCH (11:18)
[2020-11-10 12:15] VITALS: BP 114/71
== END 2020-11-10 14:35 | disposition home or self-care (01) ==
LOC: MEDTELE 09:35 → ED 09:35 → MEDTELE 16:30
PROVIDERS: ADMIT Hospitalist; ATTEND Hospitalist

== ENCOUNTER 2022-09-15 10:30 | Inpatient (IN) ==
[2022-09-15] MEDS ORDERED: Lactated Ringers 1000 ml BAG 1,000 ML IV ONE ×2 (10:52→12:52)
[2022-09-15] MEDS ORDERED: Ondansetron 4 mg VIAL 2 MG/ML 2 ml VIAL IV ONE (10:52)
[2022-09-15 11:09] LABS: Urine Appearance Cloudy; Urine Bilirubin Negative (Negative); Urine Blood 1+ (Negative); Urine Color Amber; Urine Glucose Negative (Negative); Urine Ketones 1+ (Negative); Urine Nitrite Negative (Negative); Urine Protein 2+(100 mg/dL) (Negative); Urine Specific Gravity 1.026 (1.002-1.030); Urine Urobilinogen Positive (Negative)
[2022-09-15 11:15] LABS: Urine Bacteria Absent (Absent); Urine Red Blood Cell 2+(6-10/hpf) (Absent); Urine Squamous Epithelial Cell Present (Absent); Urine White Blood Cell 3+(>20/hpf) (Absent)
[2022-09-15 11:38] LABS: Hematocrit 40.9 % (35-45); Hemoglobin 14.2 g/dL (11.5-14.3); Mean Corpuscular Hemoglobin 32.7 pg (27-33); Mean Corpuscular Hgb Conc 34.7 g/dL (31-36); Mean Corpuscular Volume 94.3 fL (80-97); Red Blood Count 4.34 10^6/uL (3.63-4.92); Red Cell Distribution Width 12.9 % (12-17); White Blood Count 2.2 10^3/uL (3.8-11.8)
[2022-09-15 11:50] LABS: Albumin 3.6 g/dL (3.2-5.2); Blood Urea Nitrogen 14 mg/dL (6-24); CO2 Carbon Dioxide 20 mmol/L (22-32); Calcium 7.8 mg/dL (8.6-10.3); Chloride 105 mmol/L (101-111); Creatinine, Serum 0.57 mg/dL (0.51-0.95); Globulin 2.5 g/dL (2-4); Glucose 86 mg/dL (70-100); Sodium 134 mmol/L (135-145); Total Protein 6.1 g/dL (6.4-8.9); eGFR CKD-EPI 94.7 (>60)
[2022-09-15 11:51] LABS: ALT 34 U/L (7-52); Albumin/Globulin Ratio 1.4 (1-3); Alkaline Phosphatase 76 U/L (35-149); C Reactive Protein 93.32 mg/L (<8.01)
[2022-09-15 12:09] LABS: Anion Gap 9 mmol/L (2-16)
[2022-09-15 12:27] LABS: ABS Lymphocytes 0.3 10^3/uL (1.0-4.8); ABS Monocytes 0.2 10^3/uL (0.0-0.9); ABS Neutrophils 1.6 10^3/uL (1.5-7.6); ABS Nucleated RBC 0.01 10^3/ul; Lymphocyte % 15.2 %; Mean Platelet Volume 8.3 fL (7.5-11.2); Nucleated Red Blood Cells % 0.3 /100 WBC (0.0-0.4); Platelet Count 72 10^3/uL (150-450)
[2022-09-15] MEDS ORDERED: cefTRIAXone 1 gm/50 mL D5W 1 GM/50 ML BAG IV ONE ×2 (12:40→14:42)
[2022-09-15 14:24] LABS: RBC Parasite Smear No Parasites Seen (No Parasite)
[2022-09-16] MEDS ORDERED: Piperacillin/Tazobac ADVAN 3.375 GM in NS 0.9% 100 ml BAG 100 ML IV ONE (04:53)
[2022-09-16] MEDS ORDERED: Zosyn per Pharmacy NOTE FOLLOW UP SCH (05:00)
[2022-09-16 05:10] LABS: Hematocrit 39.2 % (35-45); Hemoglobin 13.8 g/dL (11.5-14.3); Mean Corpuscular Hemoglobin 33.1 pg (27-33); Mean Corpuscular Hgb Conc 35.2 g/dL (31-36); Red Blood Count 4.17 10^6/uL (3.63-4.92)
[2022-09-16] MEDS ORDERED: Iohexol 350 (CONTRAST) 500 ML MDV IV ONE (05:21)
[2022-09-16 05:25] LABS: Albumin 3.6 g/dL (3.2-5.2); Albumin/Globulin Ratio 1.4 (1-3); Calcium 8.3 mg/dL (8.6-10.3); Creatinine, Serum 0.53 mg/dL (0.51-0.95); Globulin 2.5 g/dL (2-4); Potassium 3.4 mmol/L (3.5-5.0); Total Bilirubin 0.7 mg/dL (0.2-1.0); Total Protein 6.1 g/dL (6.4-8.9); eGFR CKD-EPI 96.4 (>60)
[2022-09-16] MEDS ORDERED: Ondansetron 4 mg VIAL 2 MG/ML 2 ml VIAL IV PRN (05:29)
[2022-09-16 05:44] LABS: Platelet Count Platelets clumped. 10^3/uL (150-450)
[2022-09-16 05:45] LABS: Mean Platelet Volume 8.3 fL (7.5-11.2)
[2022-09-16] MEDS ORDERED: Potassium Chlor 20 meq TAB.ER PO ONE (07:32)
[2022-09-16 07:50] LABS: Magnesium 1.7 mg/dL (1.9-2.7)
[2022-09-16] MEDS ORDERED: Lactated Ringers 1000 ml BAG 1,000 ML IV SCH (08:00)
[2022-09-16 08:03] LABS: Hematocrit 36.5 % (35-45); Mean Corpuscular Hemoglobin 32.8 pg (27-33); Mean Corpuscular Hgb Conc 35.5 g/dL (31-36); Mean Corpuscular Volume 92.5 fL (80-97); Mean Platelet Volume 7.9 fL (7.5-11.2); Platelet Count 58 10^3/uL (150-450); Red Blood Count 3.95 10^6/uL (3.63-4.92); Red Cell Distribution Width 12.7 % (12-17); White Blood Count 1.6 10^3/uL (3.8-11.8)
[2022-09-16 10:04] LABS: Folate 16.26 ng/mL (5.90-24.80)
[2022-09-16] MEDS ORDERED: ZOSYN 3.375 GM Q8H per EXTENDED INFUSION IV SCH (11:00)
[2022-09-16] MEDS: DOXYcycline 100 MG in NS 0.9% 250 ml 250 ML IVPB SCH (12:33)
[2022-09-16] MEDS ORDERED: Polyethylene Glycol 3350 17 GM PACKET PO PRN (12:58)
[2022-09-16] MEDS ORDERED: Glycerin ADULT 2.4 gm SUPP PR PRN (12:58)
[2022-09-16] MEDS ORDERED: Magnesium Hydroxide LIQ 30 ML UDC PO ONE (12:58)
[2022-09-16] MEDS ORDERED: Senna TAB 8.6 mg TAB PO PRN (12:58)
[2022-09-16] MEDS ORDERED: cefTRIAXone 2 gm/50 mL D5W 2 GM/50 ML BAG IV SCH (14:45)
[2022-09-16] MEDS: cefTRIAXone 1 gm/50 mL D5W 1 GM/50 ML BAG IV SCH (15:49)
[2022-09-17] MEDS: DOXYcycline 100 MG in NS 0.9% 250 ml 250 ML IVPB SCH ×2 (01:24→12:17)
[2022-09-17 06:05] LABS: Hematocrit 35.6 % (35-45); Hemoglobin 12.7 g/dL (11.5-14.3); Mean Corpuscular Hemoglobin 33.1 pg (27-33); Mean Corpuscular Hgb Conc 35.6 g/dL (31-36); Mean Corpuscular Volume 92.8 fL (80-97); Mean Platelet Volume 8.5 fL (7.5-11.2); Platelet Count 55 10^3/uL (150-450); Red Blood Count 3.84 10^6/uL (3.63-4.92); Red Cell Distribution Width 12.8 % (12-17)
[2022-09-17 06:09] LABS: Albumin 3.2 g/dL (3.2-5.2); Albumin/Globulin Ratio 1.4 (1-3); Creatinine, Serum 0.58 mg/dL (0.51-0.95); Globulin 2.3 g/dL (2-4); Magnesium 1.9 mg/dL (1.9-2.7); Potassium 3.8 mmol/L (3.5-5.0); Total Bilirubin 0.5 mg/dL (0.2-1.0); Total Protein 5.5 g/dL (6.4-8.9); eGFR CKD-EPI 94.3 (>60)
[2022-09-17 06:48] LABS: ABS Monocytes 0.4 10^3/uL (0.0-0.9); ABS Neutrophils 0.6 10^3/uL (1.5-7.6); ABS Nucleated RBC 0.02 10^3/ul; Eosinophil % 1.2 %; Nucleated Red Blood Cells % 0.8 /100 WBC (0.0-0.4)
[2022-09-17] MEDS ORDERED: Lactated Ringers 1000 ml BAG 1,000 ML IV ONE (10:17)
[2022-09-17] MEDS: cefTRIAXone 1 gm/50 mL D5W 1 GM/50 ML BAG IV SCH (16:39)
[2022-09-18] MEDS: DOXYcycline 100 MG in NS 0.9% 250 ml 250 ML IVPB SCH ×2 (00:16→12:07)
[2022-09-18 06:24] LABS: ABS Eosinophils 0.1 10^3/uL (0.0-0.5); ABS Lymphocytes 1.5 10^3/uL (1.0-4.8); ABS Monocytes 0.4 10^3/uL (0.0-0.9); ABS Neutrophils 0.6 10^3/uL (1.5-7.6); ABS Nucleated RBC 0.01 10^3/ul; Eosinophil % 4.9 %; Hematocrit 35.1 % (35-45); Hemoglobin 12.6 g/dL (11.5-14.3); Lymphocyte % 58.9 %; Mean Corpuscular Hemoglobin 33.1 pg (27-33); Mean Corpuscular Hgb Conc 35.8 g/dL (31-36); Mean Corpuscular Volume 92.6 fL (80-97); Mean Platelet Volume 8.6 fL (7.5-11.2); Nucleated Red Blood Cells % 0.3 /100 WBC (0.0-0.4); Platelet Count 84 10^3/uL (150-450); Red Blood Count 3.79 10^6/uL (3.63-4.92); White Blood Count 2.6 10^3/uL (3.8-11.8)
[2022-09-18 12:54] LABS: Anaplasma phagocytophilum Positive (Negative); B. miyamotoi PCR, B Negative (Negative); Babesia divergens/MO-1 Negative (Negative); Babesia ducani Negative (Negative); Ehrlichia chaffeensis Negative (Negative); Ehrlichia ewingii/canis Negative (Negative); Ehrlichia muris eauclairensis Negative (Negative)
[2022-09-19] MEDS: DOXYcycline 100 MG in NS 0.9% 250 ml 250 ML IVPB SCH (00:17)
[2022-09-19 06:08] VITALS: BP 114/70
[2022-09-19 06:31] LABS: ABS Eosinophils 0.2 10^3/uL (0.0-0.5); ABS Lymphocytes 1.5 10^3/uL (1.0-4.8); ABS Monocytes 0.3 10^3/uL (0.0-0.9); ABS Neutrophils 1.5 10^3/uL (1.5-7.6); ABS Nucleated RBC 0.01 10^3/ul; Eosinophil % 5.7 %; Hematocrit 36.2 % (35-45); Hemoglobin 12.7 g/dL (11.5-14.3); Lymphocyte % 41.2 %; Mean Corpuscular Hemoglobin 32.6 pg (27-33); Mean Corpuscular Volume 93.1 fL (80-97); Nucleated Red Blood Cells % 0.3 /100 WBC (0.0-0.4); Platelet Count 126 10^3/uL (150-450); Red Blood Count 3.89 10^6/uL (3.63-4.92); White Blood Count 3.6 10^3/uL (3.8-11.8)
== END 2022-09-19 11:10 | disposition home or self-care (01) | DRG 872 ==
LOC: EDHOLD 10:30 → ED 10:30 → OBSVTOIN 13:13 → SUATTDRO 13:14 → MED 14:37
PROVIDERS: ADMIT Internal Medicine; ATTEND Hospitalist